=== PATIENT | male | born 1945 | race Caucasian/White ===

== ENCOUNTER 2017-09-07 14:10 | Emergency (ER) | payer MEDICARE, MEDICAID, SELFPAY | END 2017-09-07 17:21 | disposition home or self-care (01) | PROVIDERS: Emergency Provider Emergency Medicine; Visit Provider Emergency Medicine | DX: J44.9 Chronic obstructive pulmonary disease, unspecified (principal); E03.9 Hypothyroidism, unspecified | CPT/HCPCS: 85610; 85730; 99282 ==

== ENCOUNTER → 2017-11-26 14:12 | Outpatient (CLI) | payer MEDICARE, MEDICAID, SELFPAY ==
--- NOTE | 2017-11-26 14:27 | XR_ITS ---
XR ribs RT min 3V w CXR1V Ordering Physician: Wilder Argueta MD Patient Age: 72 years: Male HISTORY: ITS.REASON: RT RIB PAIN Pain at ribs since August. No trauma TECHNIQUE: Both oblique views right ribs along with AP ribs above and below diaphragm. COMPARISON :CT chest 2012. 2 view chest December 2016 and July 2016. FINDINGS Right ribs appear intact with no fracture evident no lesion evident. Left chest. The scarring at lingula again noted accounting for the slight opacity at the mid left chest. A small lymph node of the shadow seen towards right base where the views I between the oblique views and the other frontal view chest we see no additional suspicious nodules. IMPRESSION:. Right ribs are intact no acute fracture nor lesion. COPD Hyperexpansion mild chronic changes. . Long-standing Scarring at lingula left lung accounts for density here. No significant appearing new findings identified. No acute features
== END ==
PROVIDERS: PCP Family Medicine; Visit Provider Family Medicine
DX: R07.81 Pleurodynia (principal)
CPT/HCPCS: 71101

== ENCOUNTER → 2018-07-31 12:57 | Outpatient (CLI) | payer MEDICARE, MEDICAID, SELFPAY ==
[2018-07-31 13:20] LABS: Blood Urea Nitrogen 15 mg/dL (7-18); Creatinine,Serum 1.46 mg/dL (0.70-1.30); Estimated Glomerular Filt Rate 47 ml/min (>60); GFR (African American) 57 ML/MIN (>60)
--- NOTE | 2018-07-31 13:57 | CT_ITS ---
CT chest w con HISTORY: ITS.REASON: HYMOPTYSIS, COPD, FORMER SMOKER ORDERING PHYSICIAN: Wilder Argueta MD PATIENT AGE: 73 years COMPARISON: None TECHNIQUE: Axial images obtained following the administration of 75 mL of Isovue 370 . Sagittal, and coronal reformatted images are also generated and reviewed. All CT scans at the facility use one or more dose reduction, viz: automated exposure control, ma/kV adjustment per patient size (including targeted exams where dose is matched to indication, i.e. head), or iterative reconstruction technique. FINDINGS: No mediastinal or hilar mass or adenopathy. Normal heart size. No evidence of pericardial effusion. Hyperinflation with attenuation of the peripheral pulmonary vessels and scattered parenchymal opacities consistent with COPD with scattered pulmonary fibrotic changes. There is a small curvilinear opacity in the left upper lobe medially at 9 mm and may be due to an area of fibrosis or atelectasis. Image #28. Atelectatic or fibrotic changes are present in the lung bases and right middle lobe and lingula and has progressed since the previous exam. No lobar consolidation or collapse. 6 mm opacity is present in the superior segment of the right lower lobe not readily apparent previously. There is a 6 mm nodule in the left upper lobe which has developed in the interval but may contain a small focus of calcification centrally. Upper abdominal images show a small hiatal hernia. Spleen is slightly prominent at 13 x 7 cm previously 11 x 5 cm. There is a gallstone present in the fundus of the gallbladder No acute bony anomalies. IMPRESSION: 1. COPD with scattered fibrotic and/or atelectatic changes which have progressed since this exam. 2. Scattered parenchymal opacities as described above including a 6 mm nodule in the left upper lobe, 6 mm nodule in the superior segment of the right lower lobe, 9 mm opacity in the right upper lobe medially. Suggest 6 month follow-up to confirm short-term stability . 3. Mild splenomegaly 4. Cholelithiasis
== END ==
PROVIDERS: PCP Family Medicine; Visit Provider Family Medicine
DX: R04.2 Hemoptysis (principal); J44.9 Chronic obstructive pulmonary disease, unspecified; Z87.891 Personal history of nicotine dependence
CPT/HCPCS: 36415; 71260; 82565; 84520; Q9967

== ENCOUNTER → 2018-11-28 14:59 | Outpatient (CLI) | payer MEDICARE, MEDICAID, SELFPAY ==
--- NOTE | 2018-11-28 15:14 | XR_ITS ---
EXAM: XR cervical spine 5V HISTORY: ITS.REASON: NECK PAIN ORDERING PHYSICIAN: Wilder Argueta MD PATIENT AGE: 73 years COMPARISON: None FINDINGS: Multilevel degenerative disc disease is present at C4-C5, C5-C6, and C6-C7. There are prominent anterior bridging osteophytes consistent with DISH. Mild uncovertebral hypertrophy is noted with no significant foraminal narrowing. No fracture or dislocation. No lytic or blastic change. 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
== END ==
PROVIDERS: PCP Family Medicine; Visit Provider Family Medicine
DX: M54.2 Cervicalgia (principal)
CPT/HCPCS: 72050

== ENCOUNTER → 2019-01-27 08:04 | Outpatient (CLI) | payer MEDICARE, MEDICAID, SELFPAY ==
--- NOTE | 2019-01-27 08:07 | CT_ITS ---
CT chest wo con HISTORY: Follow-up pulmonary nodules ITS.REASON: PULMONARY NODULES ORDERING PHYSICIAN: Wilder Argueta MD PATIENT AGE: 73 years COMPARISON: 07/31/2018 Technique: Axial images obtained. Sagittal, and coronal reformatted images are also generated and reviewed. All CT scans at the facility use one or more dose reduction, viz: automated exposure control, ma/kV adjustment per patient size (including targeted exams where dose is matched to indication, i.e. head), or iterative reconstruction technique. FINDINGS: Scattered small nodes are present in the mediastinum. No mediastinal mass or enlarged mediastinal or hilar lymph nodes apparent. There are coronary artery calcifications. There is a small hiatal hernia. COPD with scattered areas of scarring and not appear significantly changed. Increased opacification present involving the right upper lobe posteriorly and may be due to pneumonia/inflammatory change parenchymal area of increased density is present in the right upper lobe medially at 12 mm not significant changed. Scattered fibrotic changes are present in the lung bases. There is a 6 mm nodular opacity in the right lower lobe along the major fissure superiorly not significantly changed. There are scattered parenchymal opacities in the left lower lobe measuring 7 x 5 mm. An 18 x 5 mm longitudinal nodular density present in the left lower lobe as well unchanged. 6 mm nodule left upper lobe with central calcification. There is an additional 4 mm nodule left upper lobe unchanged. A 4 mm nodule left upper lobe posteriorly unchanged. Chronic volume loss noted within the lingula not significant changed. No new nodules are identified. Upper abdominal images show cholelithiasis. There are degenerative changes within the spine IMPRESSION: 1. COPD with scattered bilateral nodular opacities and scattered areas of arthrosis/scarring. These appear stable compared to the previous study. There is chronic volume loss of the lingula. 2. Increased opacification is noted in the right upper lobe laterally which could be due to underlying infection/pneumonia with superimposed chronic changes
== END ==
PROVIDERS: PCP Family Medicine; Visit Provider Family Medicine
DX: R91.8 Other nonspecific abnormal finding of lung field (principal)
CPT/HCPCS: 71250

== ENCOUNTER 2019-04-15 15:00 | Outpatient (RCR) | payer MEDICARE, MEDICAID, SELFPAY ==
--- NOTE | 2019-02-28 14:44 | [facility].PTOPEV ---
PT Outpatient Evaluation Rehab PT Outpatient Evaluation Start: 02/28/19 14:08 Freq: Status: Active Protocol: Document 02/28/19 14:08 JERMAIN (Rec: 02/28/19 14:44 JERMIAN [id number]) Electronically Signed By Alexey Larson, PT 02/28/19 14:08 Outpatient Therapy Subjective History Subjective History Pt reports h/o chronic neck since injury/'strain' ~2 months ago. Pt reports reaching up to change a light bulb and felt a 'big strain in my neck'. Pt reports R>L sided pain, no radicular s/s, with point tenderness around C7 SP. Chief Complaint Pain,Spasms,Stiff Symptom Type Ache,Dull Symptoms Relieved By Rest/Positioning Symptoms Aggravated By Physical Activity,Twisting, Lifting Prior Functional Limitations Reaching,Lifting,Housework Current Functional Limitations Reaching,Lifting,Housework Symptom Description Constant but Variable Level of pain today (0-10) 1 Pain scale - at its best (0-10) 1 Pain scale - at its worst (0-10) 4 Cervical Eval Palpation Cervical Muscles R Cervical Paraspinal,L Cervical Paraspinal,R CT Junction,L CT Junction,R Upper Trapezius,L Upper Trapezius Cervical/Thoracic Palpation Findings Tenderness Posture Head/C-Spine Posture Sitting Position Neutral Position Head/C-Spine Posture Standing Position Neutral Position Flexibility Deficits Upper Trapezius Muscle Length (R) Moderate Tightness,(L) Moderate Tightness Scalene Group Muscle Length (R) Moderate Tightness,(L) Moderate Tightness Pectoralis Major Muscle Length (R) Moderate Tightness,(L) Moderate Tightness Pectoralis Minor Muscle Length (R) Moderate Tightness,(L) Moderate Tightness Passive Joint Mobility Cervical PIVM WNL: R OA L OA R AA L AA R C2/3 L C2/3 R C3/4 L C3/4 R C4/5 L C4/5 R C5/6 L C5/6 R C6/7 L C6/7 R C7/T1
== END 2019-04-15 15:05 | disposition home or self-care (01) ==
LOC: PT 15:00
PROVIDERS: Visit Provider Family Medicine
DX: M47.812 Spondylosis without myelopathy or radiculopathy, cervical region (principal)
CPT/HCPCS: 97010; 97014; 97035; 97110; 97140; 97163; G0283

== ENCOUNTER → 2019-06-21 10:22 | Outpatient (CLI) | payer MEDICARE, MEDICAID, SELFPAY ==
[2019-06-21 11:03] LABS: INR 5.08 (0.9-1.1); Prothrombin Time 48.9 seconds (9.4-11.8)
== END ==
PROVIDERS: Visit Provider Family Medicine
DX: Z51.81 Encounter for therapeutic drug level monitoring (principal); Z79.01 Long term (current) use of anticoagulants
CPT/HCPCS: 36415; 85610

== ENCOUNTER → 2019-07-01 15:29 | Outpatient (CLI) | payer MEDICARE, SELFPAY ==
[2019-07-01 18:27] LABS: Prostate Specific Ag Screen 0.6 ng/mL (0.0-4.0)
== END ==
PROVIDERS: Visit Provider Urology
DX: Z12.5 Encounter for screening for malignant neoplasm of prostate (principal)
CPT/HCPCS: 36415; G0103

== ENCOUNTER 2019-08-06 09:48 | Observation (INO) ==
[2019-08-06 10:30] LABS: Basophils % 0.3 % (0.1-2.0); Eosinophils # 0.3 K/mm3 (0.0-0.4); Hematocrit 40.2 % (42.0-52.0); Hemoglobin 13.3 g/dL (14.1-18.0); Lymphocytes # 1.2 K/mm3 (0.7-4.5); Lymphocytes % 9.6 % (10-50); Mean Corpuscular Volume 86.2 fl (80-94); Mean Platelet Volume 7.9 fl (7.4-10.4); Monocytes # 0.7 K/mm3 (0.1-1.0); Monocytes % 5.6 % (1.7-9.3); Neutrophils # 10.2 K/mm3 (1.8-7.8); Neutrophils % 82.4 % (37.0-80.0); Platelet Count 260 K/mm3 (142-424); Red Blood Count 4.66 M/mm3 (4.60-6.20); Red Cell Distribution Width 15.6 % (11.5-17.5); White Blood Count 12.4 K/mm3 (4.8-10.8)
[2019-08-06 10:40] LABS: INR 3.07 (0.9-1.1); Prothrombin Time 30.3 seconds (9.4-11.8)
[2019-08-06 10:43] LABS: Activated Partial Thrombo Time 45.5 seconds (23.6-34.0)
[2019-08-06 10:44] LABS: Albumin Level 3.1 gm/dL (3.4-5.0); Albumin/Globulin Ratio 0.8 (1.1-1.8); Anion Gap 10.9 mEq/L (5-15); Calcium 8.5 mg/dL (8.5-10.1); Globulin 4.1 gm/dl (1.3-3.2); Total Protein,Serum 7.2 gm/dL (6.4-8.2)
--- NOTE | 2019-08-06 10:49 | Emergency Department Note ---
ED Disposition Clinical Impression: Acute exacerbation of chronic obstructive airways disease Community acquired pneumonia Qualifiers: Laterality: left Lung location: upper lobe of lung Qualified Code(s): J18.9 - Pneumonia, unspecified organism Disposition: Admitted As Inpatient Condition on Discharge: Good Referrals: Wilder Argueta MD [Primary Care Provider] - - Critical Care Critical Care Time: No Attestation: On 08/06/19, the high probability of a clinically significant, sudden or life threatening deterioration of the following system(s) required my full and direct attention, intervention and personal management. The time I documented below is in addition to time spent performing reported procedures but includes the following listed in this critical care notation. Medical Decision Making - Medical Records Medical records reviewed: Yes: I reviewed the patient's medical records. - Adrian Inquiry Pt receiving controlled substance: No Vital Signs: 08/06/19 09:49 08/06/19 10:19 08/06/19 10:49 Temperature 98.1 F 98.2 F Temperature Source Oral Oral Pulse Rate 77 Pulse Rate [Right] 90 88 Respiratory Rate 18 15 Blood Pressure [Right Arm] 110/64 115/85 Blood Pressure Mean [Right Arm] 79 95 Blood Pressure Source [Right Arm] Automatic Cuff Blood Pressure Position [Right Arm] Sitting 02 Sat by Pulse Oximetry 95 98 Oxygen Delivery Method Room Air 08/06/19 12:30 Temperature 97.4 F L Temperature Source Oral Pulse Rate Pulse Rate [Right] 69 Respiratory Rate 18 Blood Pressure [Right Arm] 158/58 H Blood Pressure Mean [Right Arm] 91 Blood Pressure Source [Right Arm] Automatic Cuff Blood Pressure Position [Right Arm] Sitting 02 Sat by Pulse Oximetry 98 Oxygen Delivery Method Room Air - Lab Data Lab results reviewed: Yes: I reviewed the patient's lab results. Lab Results 08/06/19 10:15: WBC 12.4 H, RBC 4.66, Hgb 13.3 L, Hct 40.2 L, MCV 86.2, MCH 28.5, MCHC 33.0, RDW 15.6, Plt Count 260, MPV 7.9, Neut % (Auto) 82.4 H, Lymph % (Auto) 9.6 L, [place] % (Auto) 5.6, Eos % (Auto) 2.0, Baso % (Auto) 0.3, Neut # (Auto) 10.2 H, Lymph # (Auto) 1.2, [place] # (Auto) 0.7, Eos # (Auto) 0.3, Baso # (Auto) 0.0 08/06/19 10:15: Sodium 137, Potassium 3.9, Chloride 103, Carbon Dioxide 27, Anion Gap 10.9, BUN 16, Creatinine 1.38 H, Estimated Creat Clear 51, Estimated GFR 50 L, Est GFR ( Amer) 61, Glucose 115 H, Calcium 8.5, Total Bilirubin 1.0, AST 20, ALT 10 L, Alkaline Phosphatase 108, Total Protein 7.2, Albumin 3.1 L, Globulin 4.1 H, Albumin/Globulin Ratio 0.8 L 08/06/19 10:15: Lactate 2.0 08/06/19 10:15: PT 30.3 H, INR 3.07 H, APTT 45.5 H 08/06/19 10:15: Troponin I < 0.02 Result diagrams: 08/06/19 10:15 08/06/19 10:15 Orders (Tests/Meds): ED MEDICATIONS Generic Name Dose Route Start Last Admin Trade Name Freq PRN Reason Stop Dose Admin Levofloxacin/Dextrose 750 mg in 150 mls @ 100 mls/hr 08/06/19 13:30 Levofloxacin 750mg/150ml Premix IV 08/20/19 13:29 Q24H TANA Cefepime HCl 2 gm/ Sodium 100 mls @ 200 mls/hr 08/06/19 21:00 Chloride IV 08/20/19 20:59 Q8H TANA Sodium Chloride 3 ml 08/06/19 10:03 Sodium Chloride 3% 15ml Neb 09/05/19 10:02 ONCE PRN INDUCE SPUTUM COLLECTION Discontinued Medications Generic Name Dose Route Start Last Admin Trade Name Freq PRN Reason Stop Dose Admin Albuterol/Ipratropium 3 ml 08/06/19 10:02 08/06/19 10:10 Duoneb 3ml Neb 08/06/19 10:03 3 ml ONCE ONE Administration Ceftriaxone Sodium 1 gm/ 50 mls @ 100 mls/hr 08/06/19 12:30 08/06/19 12:29 Sodium Chloride IV 08/20/19 12:29 100 mls/hr Q24H TANA Administration Protocol Methylprednisolone Sodium Succinate 125 mg 08/06/19 10:02 08/06/19 10:17 Solu-Medrol 125mg/2ml Vial IV 08/06/19 10:03 125 mg ONCE ONE Administration ORDERS Category Date Time Status Troponin I Q3H Lab 08/06/19 14:00 Ordered Troponin I Q3H Lab 08/06/19 17:00 Ordered Blood Culture Stat Micro 08/06/19 10:15 Received Sputum Culture & Gram Stain Stat Micro 08/06/19 10:03 Ordered - Radiology Data #1 Image(s): Chest Image Reviewed: Yes I reviewed the patient's radiology image Preliminary Findings: Abnormal (see report ) - Physician Consults Physician Consulted: rayna Reason -: Admission Resp/SOB HPI - General Chief Complaint: Shortness of Breath/Dyspnea Stated Complaint: SOA Time Seen by Provider: 08/06/19 10:49 Mode of Arrival: Ambulatory Limitations: No Limitations Description of Symptoms (Recalled from ER Triage Doc. by RN): Patient complains of SOA since right before bedtime last night. - History of Present Illness pt with progressive sob with prod cough - pt with recent ed visit and has abn ct and cxr and on abx - pt has pending appt with pulmonary meds Complaint: shortness of breath, cough Onset (ago): hour(s) Context: recent illness Severity: moderate Known history of: COPD, recurrent pneumonia Associated symptoms: denies other symptoms - Related Data Home oxygen amount: none Home Medications Medication Instructions Recorded Confirmed Bisoprolol Fumarate [Bisoprolol 5 mg PO DAILY 04/16/19 08/06/19 5mg Tablet] Gemfibrozil 600 mg PO DAILY 04/16/19 08/06/19 Levothyroxine Sodium 88 mcg PO DAILY 04/16/19 08/06/19 [Levothyroxine 88mcg (0.088mg) Tab] Warfarin Sodium [Coumadin 5mg 5 mg PO DAILY 04/16/19 08/06/19 tablet] Simvastatin 20 mg PO DAILY 05/27/19 08/06/19 Diltiazem 240mg 24Hr ER Cap 1 % PO DAILY 07/20/19 08/06/19 Roflumilast [Daliresp] 1 tab PO DAILY 07/20/19 08/06/19 levoFLOXacin [Levaquin 500mg 500 mg PO DAILY 08/06/19 08/06/19 tab] Allergies Allergy/AdvReac Type Severity Reaction Status Date / Time No Known Allergies Allergy Verified 07/01/19 16:14 [facility] History - Hepatitis A Screen Drug use history?: No High risk sexual behaviors?: No History of sexually transmitted infection?: No Currently employed?: No Childcare worker?: No Do you have indoor plumbing?: Yes Do you have electricity?: Yes Attestation statement:: This patient has been screened for Hepatitis A risk factors. I have reviewed the patient's past medical history: Yes Other Surgeries: Yes: Colonoscopy - Social History Smoking Status: Never smoker Alcohol Intake: never Occupational Status: retired Housing: house Family Hx:: No significant family history ROS Obtained: Yes All systems reviewed & no additional complaints - Constitutional Constitutional: Denies fever(s) - Eyes Eyes: Denies change in vision - ENT Ears, Nose, Mouth, and Throat: Denies sore throat - Cardiovascular Cardiovascular: Denies chest pain, Reports dyspnea - Respiratory Respiratory: Yes as per HPI, Yes change in phlegm color, Yes cough, No coughing up blood - Gastrointestinal Gastrointestingal: Denies: abdominal pain - Genitourinary Male Genitourinary: Denies hematuria - Musculoskeletal Musculoskeletal: Denies joint pain - Integumentary/Breasts Skin/Breast: Denies rash - Neurologic Neurologic: Denies seizure-like activity Physical Exam - General General appearance: alert - Head Head exam: normocephalic - Eye Eye exam: Present: PERRL, EOMI - ENT ENT exam: Present: mucous membranes dry - Neck Neck exam: Present: trachea midline - Respiratory Respiratory exam: Present: other (dec bs bilat ). Absent: respiratory distress - Cardiovascular Cardiovascular exam: Present: regular rate, systolic murmur, +S4 - Abdominal Exam Abdominal exam: Present: soft - Extremities Exam Extremities exam: Absent: calf tenderness - Neurological Exam Neurological exam: Present: alert, oriented X3, CN II-XII intact - Psychiatric Psychiatric exam: Present: normal affect - Skin Skin exam: Absent: rash
--- NOTE | 2019-08-06 14:26 | Pharmacy Consult Notes ---
[facility] Pharmacy VTE Monitoring - Patient Demographics Admission date: 08/06/19 Report Date: 08/06/19 Time: 14:26 Allergies/Adverse Reactions: Patient Allergies No Known Allergies Allergy (Verified 07/01/19 16:14) Height: 1.91 m Weight: 74.588 kg Patient Problems: Current Active Problems Community acquired pneumonia (Acute) Acute exacerbation of chronic obstructive airways disease (Acute) - VTE Risk Labs: VTE Related Lab Results Hgb 13.3 g/dL (14.1-18.0) L 08/06/19 10:15 Hct 40.2 % (42.0-52.0) L 08/06/19 10:15 Plt Count 260 K/mm3 (142-424) 08/06/19 10:15 PT 30.3 seconds (9.4-11.8) H 08/06/19 10:15 INR 3.07 (0.9-1.1) H 08/06/19 10:15 APTT 45.5 seconds (23.6-34.0) H 08/06/19 10:15 BUN 16 mg/dL (7-18) 08/06/19 10:15 Creatinine 1.38 mg/dL (0.70-1.30) H 08/06/19 10:15 Estimated Creat Clear 51 mL/min (50-200) 08/06/19 10:15 - Prophylaxis VTE Prophylaxis Ordered?: Yes Types of VTE Prophylaxis: Pharmacological Pharmacologic Type: Warfarin (INR = 3.07)
--- NOTE | 2019-08-06 14:43 | History & Physical Report ---
*Admission Date: 08/06/19 *Chief complaint: Shortness of breath *History of present illness: 74-year-old male with COPD presented to the emergency department with complaint of less than 24 hours of fevers that occurred overnight and shortness of breath with cough that is productive of small amounts of brown sputum. Patient had been seen in the emergency department in early July (July 20) and x-ray showed pneumonia with CT scan performed the same day showing questionable infiltrate at the lingular infiltrate as well as some atelectasis versus an infiltrate at the left lower base. Patient has been referred to pulmonology for further bronchoscopy and review of his CT scan. He presented today with the previously mentioned complaints. Chest x-ray was interpreted as a new left lower lobe infiltrate. Patient's white blood cell count was mildly elevated. Decision was made to admit for observation and administration of broad-spectrum antibiotics. Patient has been admitted on Levaquin and cefepime to cover possible Pseudomonas as he recently finished a course of antibiotics for pneumonia in early July. While patient did admit to shortness of breath overnight he denies shortness of breath at the time of interview. [facility] History I have reviewed the patient's past medical history: Yes Medical History: Reports:: Atrial Fibrillation, Chronic Obstructive Pulmonary Disease (COPD) *Have you ever received a pneumonia vaccine?: No *Have you received a flu vaccine this season?: No Other Surgeries: Yes: Colonoscopy - *Social History Smoking Status: Never smoker Alcohol Intake: never *Occupational Status:: retired Housing: house *Travel in the last 8 weeks: None Family Hx:: No significant family history Review of Systems - Review of Systems Review of systems:: pertinent systems reviewed and negative unless documented below - *Neurologic Denies seizure-like activity Meds Home Medications Medication Instructions Recorded Confirmed Type Bisoprolol Fumarate [Bisoprolol 5 mg PO DAILY 04/16/19 08/06/19 History 5mg Tablet] Gemfibrozil 600 mg PO DAILY 04/16/19 08/06/19 History Levothyroxine Sodium 88 mcg PO DAILY 04/16/19 08/06/19 History [Levothyroxine 88mcg (0.088mg) Tab] Simvastatin 20 mg PO HS 05/27/19 08/06/19 History Roflumilast [Daliresp] 1 tab PO DAILY 07/20/19 08/06/19 History Albuterol Sulfate [Albuterol HFA 2 puffs IH Q4HP PRN 08/06/19 08/06/19 History Inhaler] Warfarin Sodium 6 mg PO DAILY 08/06/19 08/06/19 History diazePAM [diazePAM 5mg Tablet] 5 mg PO QIDP PRN 08/06/19 08/06/19 History dilTIAZem HCl [Diltiazem ER] 240 mg PO DAILY 08/06/19 08/06/19 History levoFLOXacin [Levaquin 500mg 500 mg PO DAILY 08/06/19 08/06/19 History tab] Allergies Allergy/AdvReac Type Severity Reaction Status Date / Time No Known Allergies Allergy Verified 07/01/19 16:14 Exam Vital signs and Labs for Last 24 Hours: Temp Pulse Resp BP Pulse Ox 97.9 F 72 18 125/60 100 08/06/19 14:17 08/06/19 14:17 08/06/19 14:17 08/06/19 14:17 08/06/19 14:17 Laboratory Results - last 24 hr 08/06/19 10:15: WBC 12.4 H, RBC 4.66, Hgb 13.3 L, Hct 40.2 L, MCV 86.2, MCH 28.5, MCHC 33.0, RDW 15.6, Plt Count 260, MPV 7.9, Neut % (Auto) 82.4 H, Lymph % (Auto) 9.6 L, [place] % (Auto) 5.6, Eos % (Auto) 2.0, Baso % (Auto) 0.3, Neut # (Auto) 10.2 H, Lymph # (Auto) 1.2, [place] # (Auto) 0.7, Eos # (Auto) 0.3, Baso # (Auto) 0.0 08/06/19 10:15: Sodium 137, Potassium 3.9, Chloride 103, Carbon Dioxide 27, Anion Gap 10.9, BUN 16, Creatinine 1.38 H, Estimated Creat Clear 51, Estimated GFR 50 L, Est GFR ( Amer) 61, Glucose 115 H, Calcium 8.5, Total Bilirubin 1.0, AST 20, ALT 10 L, Alkaline Phosphatase 108, Total Protein 7.2, Albumin 3.1 L, Globulin 4.1 H, Albumin/Globulin Ratio 0.8 L 08/06/19 10:15: Lactate 2.0 08/06/19 10:15: PT 30.3 H, INR 3.07 H, APTT 45.5 H 08/06/19 10:15: Troponin I < 0.02 08/06/19 13:52: Troponin I < 0.02 I & O for Last 24 hours: Intake & Output 08/04/19 08/05/19 08/06/19 08/07/19 11:59 11:59 11:59 11:59 Intake Total 200 / 200 Balance 200 / 200 Weight 170 lb 164 lb 7 oz - Constitutional no acute distress - *Routine HEENT Exam Head: Present: normocephalic Eye: Present: EOMI, PERRL ENT: Present: mucous membranes moist - *Routine Neck Exam Present: supple, full ROM, JVD - *Routine Respiratory Exam Present: rales - *Routine Cardiovascular Exam Present: RRR - *Routine Abdominal Exam Present: soft, normoactive bowel sounds - *Routine Extremities Exam Absent: edema Assessment and Plan (1) Community acquired pneumonia Current visit: Yes Status: Acute Qualifiers: Laterality: left Lung location: upper lobe of lung Qualified Code(s): J18.9 - Pneumonia, unspecified organism Category: Medical Code(s): J18.9 - Pneumonia, unspecified organism - Assessment and plan all Dx Assessment and Plan for all problems:: Patient is been admitted and placed on broad-spectrum antibiotic coverage. Patient does not meet criteria for severe sepsis. Fluids will be discontinued. INR is explainable by the fact that the patient takes Coumadin daily and is unrelated to his infection. Patient will be given steroids and antibiotics overnight. If there are no further issues patient will be discharged tomorrow. Repeat CBC has been ordered for the a.m.
--- NOTE | 2019-08-07 07:21 | Discharge Summary ---
General - General Admission date:: 08/06/19 Discharge date: 08/07/19 HPI HPI: 74-year-old male with COPD presented to the emergency department with complaint of less than 24 hours of fevers that occurred overnight and shortness of breath with cough that is productive of small amounts of brown sputum. Patient had been seen in the emergency department in early July (July 20) and x-ray showed pneumonia with CT scan performed the same day showing questionable infiltrate at the lingular infiltrate as well as some atelectasis versus an infiltrate at the left lower base. Patient has been referred to pulmonology for further bronchoscopy and review of his CT scan. He presented today with the previously mentioned complaints. Chest x-ray was interpreted as a new left lower lobe infiltrate. Patient's white blood cell count was mildly elevated. Decision was made to admit for observation and administration of broad-spectrum antibiotics. Patient has been admitted on Levaquin and cefepime to cover possible Pseudomonas as he recently finished a course of antibiotics for pneumonia in early July. While patient did admit to shortness of breath overnight he denies shortness of breath at the time of interview. Hospital Course Hospital Course: Patient was admitted and had no further subjective fevers. He had no further shortness of breath. His cough became productive of clear sputum as the observation admission progressed. He ambulated without difficulty. Patient uses incentive spirometer. The following morning on August 07 patient was continuing to do well. Lung exam revealed clear lung carrillo. Patient was discharged home. He will complete a course of antibiotics and follow-up in my office in 1 week. Objective Vital signs: Temp Pulse Resp BP Pulse Ox 97.9 F 67 18 129/59 L 96 08/07/19 04:00 08/07/19 05:49 08/07/19 04:00 08/07/19 04:00 08/07/19 05:49 no acute distress - *Routine Respiratory Exam Present: CTA bilaterally - *Routine Cardiovascular Exam Present: RRR, Normal S1, Normal S2 Results Labs on day of discharge: Labs from last 24 hours 08/06/19 08/06/19 08/06/19 14:54 13:52 10:15 WBC RBC Hgb Hct MCV MCH MCHC RDW Plt Count MPV Neut % (Auto) Lymph % (Auto) [place] % (Auto) Eos % (Auto) Baso % (Auto) Neut # (Auto) Lymph # (Auto) [place] # (Auto) Eos # (Auto) Baso # (Auto) PT INR APTT Sodium Potassium Chloride Carbon Dioxide Anion Gap BUN Creatinine Estimated Creat Clear Estimated GFR Est GFR ( Amer) Glucose Lactate Calcium Total Bilirubin AST ALT Alkaline Phosphatase Troponin I < 0.02 < 0.02 Total Protein Albumin Globulin Albumin/Globulin Ratio Influenza Type A Ag Negative Influenza Type B Ag Negative 08/06/19 08/06/19 08/06/19 10:15 10:15 10:15 WBC RBC Hgb Hct MCV MCH MCHC RDW Plt Count MPV Neut % (Auto) Lymph % (Auto) [place] % (Auto) Eos % (Auto) Baso % (Auto) Neut # (Auto) Lymph # (Auto) [place] # (Auto) Eos # (Auto) Baso # (Auto) PT 30.3 H INR 3.07 H APTT 45.5 H Sodium 137 Potassium 3.9 Chloride 103 Carbon Dioxide 27 Anion Gap 10.9 BUN 16 Creatinine 1.38 H Estimated Creat Clear 51 Estimated GFR 50 L Est GFR ( Amer) 61 Glucose 115 H Lactate 2.0 Calcium 8.5 Total Bilirubin 1.0 AST 20 ALT 10 L Alkaline Phosphatase 108 Troponin I Total Protein 7.2 Albumin 3.1 L Globulin 4.1 H Albumin/Globulin Ratio 0.8 L Influenza Type A Ag Influenza Type B Ag 08/06/19 10:15 WBC 12.4 H RBC 4.66 Hgb 13.3 L Hct 40.2 L MCV 86.2 MCH 28.5 MCHC 33.0 RDW 15.6 Plt Count 260 MPV 7.9 Neut % (Auto) 82.4 H Lymph % (Auto) 9.6 L [place] % (Auto) 5.6 Eos % (Auto) 2.0 Baso % (Auto) 0.3 Neut # (Auto) 10.2 H Lymph # (Auto) 1.2 [place] # (Auto) 0.7 Eos # (Auto) 0.3 Baso # (Auto) 0.0 PT INR APTT Sodium Potassium Chloride Carbon Dioxide Anion Gap BUN Creatinine Estimated Creat Clear Estimated GFR Est GFR ( Amer) Glucose Lactate Calcium Total Bilirubin AST ALT Alkaline Phosphatase Troponin I Total Protein Albumin Globulin Albumin/Globulin Ratio Influenza Type A Ag Influenza Type B Ag DS: Diagnosis - Discharge Diagnosis (1) Community acquired pneumonia Status: Acute Discharge Plan - Patient Discharge Instructions ACTIVITY: Continue current activity DIET: continue same diet - Follow up Plan Follow up with: Wilder Argueta MD [Primary Care Provider] - 1 week Disposition: Home, Self-[facility] Medications: Home Medications Medication Instructions Recorded Confirmed Type Bisoprolol Fumarate [Bisoprolol 5 mg PO DAILY 04/16/19 08/06/19 History 5mg Tablet] Levothyroxine Sodium 88 mcg PO DAILY 04/16/19 08/06/19 History [Levothyroxine 88mcg (0.088mg) Tab] Simvastatin 20 mg PO HS 05/27/19 08/06/19 History Roflumilast [Daliresp] 1 tab PO DAILY 07/20/19 08/06/19 History Albuterol Sulfate [Albuterol HFA 2 puffs IH Q4HP PRN 08/06/19 08/06/19 History Inhaler] Warfarin Sodium 6 mg PO DAILY 08/06/19 08/06/19 History diazePAM [diazePAM 5mg Tablet] 5 mg PO QIDP PRN 08/06/19 08/06/19 History dilTIAZem HCl [Diltiazem ER] 240 mg PO DAILY 08/06/19 08/06/19 History levoFLOXacin [Levaquin 500mg 500 mg PO DAILY 08/06/19 08/06/19 History tab] Doxycycline Hyclate [Doxycycline 100 mg PO BID #14 cap 08/07/19 Rx 100mg Capsule] Prescriptions/Medication Reconciliation: New Doxycycline Hyclate [Doxycycline 100mg Capsule] 100 mg PO BID #14 cap Continued Bisoprolol Fumarate [Bisoprolol 5mg Tablet] 5 mg PO DAILY levoFLOXacin [Levaquin 500mg tab] 500 mg PO DAILY dilTIAZem HCl [Diltiazem ER] 240 mg PO DAILY Warfarin Sodium 6 mg PO DAILY Levothyroxine Sodium [Levothyroxine 88mcg (0.088mg) Tab] 88 mcg PO DAILY Simvastatin 20 mg PO HS Roflumilast [Daliresp] 1 tab PO DAILY diazePAM [diazePAM 5mg Tablet] 5 mg PO QIDP PRN PRN Reason: Anxiety Albuterol Sulfate [Albuterol HFA Inhaler] 2 puffs IH Q4HP PRN PRN Reason: SHORTNESS OF BREATH/WHEEZING - Problem Reconciliation Problems Reviewed?: Yes
[2019-08-07 07:24] LABS: Basophils % 0.1 % (0.1-2.0); Eosinophils # 0.1 K/mm3 (0.0-0.4); Eosinophils % 0.7 % (0.1-12.0); Hemoglobin 13.3 g/dL (14.1-18.0); Lymphocytes # 0.5 K/mm3 (0.7-4.5); Lymphocytes % 5.6 % (10-50); Mean Corpuscular HGB Conc 30.9 g/dL (31.8-35.4); Mean Corpuscular Volume 88.3 fl (80-94); Monocytes # 0.2 K/mm3 (0.1-1.0); Monocytes % 2.2 % (1.7-9.3); Neutrophils # 7.7 K/mm3 (1.8-7.8); Neutrophils % 91.3 % (37.0-80.0); Platelet Count 249 K/mm3 (142-424); Red Blood Count 4.87 M/mm3 (4.60-6.20); Red Cell Distribution Width 15.7 % (11.5-17.5); White Blood Count 8.4 K/mm3 (4.8-10.8)
[2019-08-07 07:42] LABS: INR 3.34 (0.9-1.1); Prothrombin Time 32.8 seconds (9.4-11.8)
[2019-08-07 07:44] LABS: Anion Gap 12.7 mEq/L (5-15); Calcium 9.3 mg/dL (8.5-10.1)
[2019-08-07 11:23] LABS: Lymphocytes % 7 % (10-50); Monocytes % 4 % (2-9); Neutrophils % 89 % (42-76); Total Cells Counted 100
[2019-08-07 11:24] LABS: RBC Morphology Normal
== END 2019-08-07 09:24 | disposition home or self-care (01) ==
LOC: ER 09:48 → 2ND 13:22 → INTOOBSV 13:32 → 2ND 13:33
PROVIDERS: ADMIT Family Medicine; ATTEND Family Medicine
CPT/HCPCS: 36415; 71020; 71046; 80048; 80053; 83605; 84484; 85007; 85025; 85610; 85730; 87040; 87275; 87276; 94640; 94761; 96365; 96367; 96375; 99284; G0378; J1956

== ENCOUNTER → 2019-09-23 13:37 | Outpatient (CLI) | payer MEDICARE, OTHER, SELFPAY ==
--- NOTE | 2019-09-23 13:42 | XR_ITS ---
PROCEDURE: XR CHEST 2V CLINICAL HISTORY: RT SIDE CHEST PAIN, RLL PNEUMONIA Hemoptysis, right lower lobe pneumonia, right-sided chest pain COMPARISON: [id number] XR ribs RT min 3V w CXR1V from 11/26/2017 XR CHEST 2V from 07/20/2019 CT CHEST W CON from 07/20/2019 XR CHEST 2V from 08/06/2019 FINDINGS: COPD. Normal heart size. Consolidation is present in the left lower lobe consistent with pneumonia which is worse from 08/06/2019. Patchy infiltrate is also present within the right middle lobe which has developed since the previous exam. Chronic changes left lung base. Degenerative change thoracic spine IMPRESSION: 1. Worsening consolidation within the lingula with developing pneumonia in the right midlung 2. COPD Dictated by: Ilan De La Garza MD 09/23/2019 14:04 Electronically signed by Ilan De La Garza MD in [place] 09/23/2019 14:04
== END ==
PROVIDERS: PCP Nurse Practitioner Family; Visit Provider Nurse Practitioner Family
DX: R07.9 Chest pain, unspecified (principal); J18.9 Pneumonia, unspecified organism
CPT/HCPCS: 71046

== ENCOUNTER → 2019-10-24 14:28 | Outpatient (CLI) | payer MEDICARE, OTHER, SELFPAY ==
--- NOTE | 2019-10-24 14:37 | XR_ITS ---
PROCEDURE: XR CHEST 2V CLINICAL HISTORY: COUGH Cough and congestion COMPARISON: CT CHEST W CON from 07/20/2019 XR CHEST 2V from 07/20/2019 XR CHEST 2V from 08/06/2019 XR CHEST 2V from 09/23/2019 FINDINGS: The cardiomediastinal silhouette and pulmonary vascularity are within normal limits. COPD with scattered areas of scarring. There is consolidation in the left lower lobe at the CP angle consistent with pneumonia not significantly changed. Consolidation/volume loss in the lingula once again noted and appears slightly improved at least on the lateral view. The pneumonia in the right mid lower lung zone is once again noted and also appears slightly improved. No acute bony abnormalities. IMPRESSION: 1. COPD with bilateral pneumonia slightly improved in the right mid lower lung zone and lingula but unchanged in the left lung base. Dictated by: Ilan De La Garza MD 10/24/2019 14:52 Electronically signed by Ilan De La Garza MD in [facility] 10/24/2019 14:52
== END ==
PROVIDERS: PCP Family Medicine; Visit Provider Family Medicine
DX: R05 Cough (principal)
CPT/HCPCS: 71046

== ENCOUNTER → 2019-10-30 15:32 | Outpatient (CLI) | payer MEDICARE, OTHER, SELFPAY ==
--- NOTE | 2019-10-30 15:45 | CT_ITS ---
PROCEDURE: CT CHEST WO CON CLINICAL INDICATION: wt loss, hemoptyysis Weight loss, hemoptysis, pneumonia COMPARISON: CHESTW CT chest w con from 07/31/2018 CT CHEST W CON from 07/20/2019 TECHNIQUE: Axial images obtained with sagittal and coronal reformats. All CT scans at the facility use one or more dose reduction, viz: automated exposure control, ma/kV adjustment per patient size (including targeted exams where dose is matched to indication, i.e. head), or iterative reconstruction technique. FINDINGS: No mediastinal or hilar mass. Coronary artery calcifications are present. There are few small mediastinal lymph nodes. COPD changes noted with scattered areas of fibrotic changes. There are scattered irregular parenchymal opacities once again noted. There is 11 mm parenchymal opacity right upper lobe medially not significantly changed from the most recent exam but slightly more prominent compared to 07/31/2018. There is patchy infiltrate in the right upper lobe posteriorly not significantly changed. There is consolidation with volume loss of the lateral segment of the right middle lobe which is developed since the previous exam. A new small nodular opacity is present in the right lower lobe posteriorly and medially at 7 mm series 3, image 62. There is some patchy infiltrate in the right lower lobe posteriorly. Stable nodular opacity is present in the superior segment of the right lower lobe at 6 mm. Stable left upper lobe nodule at 4 mm series 3, image 44. Consolidation is once again noted within the lingula but has shown some improvement. New area of consolidation is present in the left lower lobe laterally and posteriorly consistent with pneumonia. Upper abdominal images show cholelithiasis. No acute bony anomalies IMPRESSION: 1. COPD with fibrotic changes with scattered pulmonary parenchymal opacities most of which are stable. One new nodular opacity is present in the right lower lobe medially. While these may represent areas of scarring, 1 cannot exclude the possibility of pulmonary nodule/metastatic foci. 2. Consolidation in the right middle lobe laterally and left lower lobe has developed since the previous exam with some improvement in the consolidation within the lingula. Bronchiolitis obliterans with organizing pneumonia is a consideration. Dictated by: Ilan De La Garza MD 11/02/2019 07:52 Electronically signed by Ilan De La Garza MD in [place] 11/02/2019 07:52
[2019-10-30 17:10] LABS: Basophils # 0.1 K/mm3 (0-0.2); Eosinophils # 0.1 K/mm3 (0.0-0.4); Eosinophils % 1.5 % (0.1-12.0); Hematocrit 38.4 % (42.0-52.0); Hemoglobin 12.2 g/dL (14.1-18.0); Lymphocytes # 1.1 K/mm3 (0.7-4.5); Lymphocytes % 20.4 % (10-50); Mean Corpuscular HGB Conc 31.8 g/dL (31.8-35.4); Mean Corpuscular Hemoglobin 27.3 pg (27.0-31.2); Mean Corpuscular Volume 85.7 fl (80-94); Mean Platelet Volume 7.8 fl (7.4-10.4); Monocytes # 0.3 K/mm3 (0.1-1.0); Monocytes % 4.9 % (1.7-9.3); Neutrophils # 3.9 K/mm3 (1.8-7.8); Neutrophils % 72.2 % (37.0-80.0); Platelet Count 233 K/mm3 (142-424); Red Blood Count 4.48 M/mm3 (4.60-6.20); Red Cell Distribution Width 15.3 % (11.5-17.5); White Blood Count 5.3 K/mm3 (4.8-10.8)
[2019-10-30 20:20] LABS: Alanine Aminotransferase 15 U/L (21-72); Albumin Level 3.5 g/dL (3.4-5.0); Albumin/Globulin Ratio 0.9 (1.1-1.8); Alkaline Phosphatase 175 U/L (46-116); Aspartate Amino Transferase 21 U/L (15-37); Bilirubin,Total 0.3 mg/dL (0.2-1.0); Blood Urea Nitrogen 17 mg/dL (7-18); Calcium 8.8 mg/dL (8.5-10.1); Carbon Dioxide 27 mmol/L (21.0-32.0); Chloride 106 mmol/L (98-107); Creatinine,Serum 1.21 mg/dL (0.70-1.30); Estimated Glomerular Filt Rate 59 ml/min (>60); GFR (African American) 71 ML/MIN (>60); Globulin 3.7 gm/dl (1.3-3.2); Glucose 99 mg/dL (74-106); Sodium 145 mmol/L (137-145); Total Protein,Serum 7.2 g/dL (6.4-8.2)
== END ==
PROVIDERS: PCP Family Medicine; Visit Provider Otolaryngology
DX: R04.2 Hemoptysis (principal); R63.4 Abnormal weight loss
CPT/HCPCS: 36415; 71250; 80053; 85025

== ENCOUNTER 2020-03-18 21:23 | Emergency (ER) | payer MEDICARE, OTHER, SELFPAY ==
[2020-03-18 21:37] VITALS: BP 124/84; PULSE 108; RESP 22; TEMP 36.6; O2SAT 94; BMI 23.2
--- NOTE | 2020-03-18 21:37 | ECG_ITS ---
APPROVED REPORT Exam: Resting ECG HR:101 bpm ECG Measurements Heart Rate 101 AXES SC 190 P 61 QRSd 102 QRS 14 QT 356 T 75 QTc 461 <Conclusion> Sinus tachycardia Incomplete right bundle branch block Possible Inferior infarct, age undetermined Abnormal ECG Electronically signed by : Wilder Pantoja, 03/22/2020 17:14:56
--- NOTE | 2020-03-18 21:45 | XR_ITS ---
PROCEDURE: XR CHEST 2V CLINICAL HISTORY: sob Chest pain and shortness of breath COMPARISON: XR CHEST 2V from 08/06/2019 XR CHEST 2V from 09/23/2019 XR CHEST 2V from 10/24/2019 CT CHEST WO CON from 10/30/2019 FINDINGS: The cardiomediastinal silhouette and pulmonary vascularity are within normal limits. COPD. There is consolidation involving the lingula consistent with pneumonia with underlying chronic changes. Atelectasis and/or infiltrate also noted in the right middle lobe region. No obvious effusion No acute bony abnormalities. IMPRESSION: Pneumonia of the lingula with chronic changes with atelectasis or infiltrate of the lingula Dictated by: Ilan De La Garza MD 03/19/2020 06:24 Electronically signed by Ilan eD La Garza MD in [place] 03/19/2020 06:24
[2020-03-18 22:00] VITALS: BP 124/66; PULSE 92; RESP 16; O2SAT 95
[2020-03-18 22:02] LABS: Basophils # 0.1 K/mm3 (0-0.2); Basophils % 0.4 % (0.1-2.0); Eosinophils # 0.1 K/mm3 (0.0-0.4); Eosinophils % 1.1 % (0.1-12.0); Hematocrit 38.5 % (42.0-52.0); Hemoglobin 13.2 g/dL (14.1-18.0); Lymphocytes # 1.6 K/mm3 (0.7-4.5); Lymphocytes % 12.9 % (10-50); Mean Corpuscular HGB Conc 34.3 g/dL (31.8-35.4); Mean Corpuscular Hemoglobin 31.6 pg (27.0-31.2); Mean Corpuscular Volume 92.2 fl (80-94); Mean Platelet Volume 7.4 fl (7.4-10.4); Monocytes # 0.5 K/mm3 (0.1-1.0); Monocytes % 3.6 % (1.7-9.3); Neutrophils # 10.3 K/mm3 (1.8-7.8); Platelet Count 307 K/mm3 (142-424); Red Blood Count 4.17 M/mm3 (4.60-6.20); Red Cell Distribution Width 14.3 % (11.5-17.5); White Blood Count 12.6 K/mm3 (4.8-10.8)
[2020-03-18 22:19] LABS: Chloride 107 mmol/L (98-107); Potassium 3.6 mmoL/L (3.5-5.1); Sodium 139 mmol/L (136-145)
[2020-03-18 22:22] LABS: Alanine Aminotransferase 15 U/L (12-78); Albumin Level 4.2 g/dl (3.5-5.0); Alkaline Phosphatase 72 U/L (38-126); Anion Gap 14.6 mEq/L (5-15); Aspartate Amino Transferase 21 U/L (17-59); Bilirubin,Total 0.9 mg/dl (0.2-1.3); Blood Urea Nitrogen 22 mg/dl (9-20); Carbon Dioxide 21 mmol/L (22.0-30.0); Creatinine Clearance Estimated 52 mL/min (50-200); Estimated Glomerular Filt Rate 46 ml/min (>60); GFR (African American) 55 ML/MIN (>60); Globulin 4.2 g/dL (1.3-3.2); Total Protein,Serum 8.4 g/dl (6.3-8.2)
[2020-03-18 22:23] LABS: Glucose 107 mg/dl (74-100)
--- NOTE | 2020-03-18 22:29 | HMH.EDSOB ---
ED Disposition Clinical Impression: Severe sepsis with acute organ dysfunction, COVID-19 virus IgG antibody detected, Prolonged pt (prothrombin time), Renal insufficiency Community acquired pneumonia Qualifiers: Laterality: left Lung location: lower lobe of lung Qualified Code(s): J18.9 - Pneumonia, unspecified organism Disposition: Home, Self-Care Condition on Discharge: Good Instructions: DI for Shortness of Breath Additional Instructions: hold coumadin follow up and use meds as directed and call dr way for follow up Referrals: Wilder Way MD [Primary Care Provider] - - Critical Care Critical Care Time: No Attestation: On 03/18/20, the high probability of a clinically significant, sudden or life threatening deterioration of the following system(s) required my full and direct attention, intervention and personal management. The time I documented below is in addition to time spent performing reported procedures but includes the following listed in this critical care notation. Medical Decision Making - Medical Records Medical records reviewed: Yes: I reviewed the patient's medical records. - Adrian Inquiry Pt receiving controlled substance: No Vital Signs: 03/18/20 21:37 03/18/20 22:00 03/18/20 22:30 Temperature 97.9 F Temperature Source Oral Pulse Rate [Right Brachial] 108 H 92 H 90 Respiratory Rate 22 16 16 Blood Pressure [Right Arm] 124/84 124/66 128/72 Blood Pressure Mean [Right Arm] 97 85 90 Blood Pressure Source [Right Arm] Automatic Cuff Automatic Cuff Automatic Cuff Blood Pressure Position [Right Arm] Sitting Supine Supine 02 Sat by Pulse Oximetry 94 L 95 95 Oxygen Delivery Method Room Air Room Air Room Air Oxygen Flow Rate (LPM) 03/18/20 23:51 Temperature Temperature Source Pulse Rate [Right Brachial] 88 Respiratory Rate Blood Pressure [Right Arm] 118/58 L Blood Pressure Mean [Right Arm] 78 Blood Pressure Source [Right Arm] Automatic Cuff Blood Pressure Position [Right Arm] Sitting 02 Sat by Pulse Oximetry 94 L Oxygen Delivery Method Nasal Cannula Oxygen Flow Rate (LPM) 2 - Lab Data Lab results reviewed: Yes: I reviewed the patient's lab results. Lab Results 03/18/20 21:40: WBC 12.6 H, RBC 4.17 L, Hgb 13.2 L, Hct 38.5 L, MCV 92.2, MCH 31.6 H, MCHC 34.3, RDW 14.3, Plt Count 307, MPV 7.4, Neut % (Auto) 82.0 H, Lymph % (Auto) 12.9, [place]irt % (Auto) 3.6, Eos % (Auto) 1.1, Baso % (Auto) 0.4, Neut # (Auto) 10.3 H, Lymph # (Auto) 1.6, Wirt # (Auto) 0.5, Eos # (Auto) 0.1, Baso # (Auto) 0.1 03/18/20 21:40: Sodium 139, Potassium 3.6, Chloride 107, Carbon Dioxide 21 L, Anion Gap 14.6, BUN 22 H, Creatinine 1.50 H, Estimated Creat Clear 52, Estimated GFR 46 L, Est GFR ( Amer) 55 L, Glucose 107 H, Calcium 10.0, Total Bilirubin 0.9, AST 21, ALT 15, Alkaline Phosphatase 72, Troponin I < 0.01, Total Protein 8.4 H, Albumin 4.2, Globulin 4.2 H, Albumin/Globulin Ratio 1.0 L 03/18/20 21:40: Lactate 2.9 H 03/18/20 21:40: SARS-CoV-2 IgG Ab (Rapid) Positive A, SARS-CoV-2 IgM Ab (Rapid) Negative 03/18/20 21:40: NT-Pro-B Natriuret Pep 653 H 03/18/20 21:40: PT 42.2 H, INR 4.53 H 03/18/20 23:05: Urine Color Yellow, Urine Appearance Clear, Urine pH 6.0, Ur Specific [place] 1.025, Urine Protein Negative, Urine Glucose (UA) Negative, Urine Ketones Negative, Urine Blood Negative, Urine Nitrate Negative, Urine Bilirubin Negative, Urine Urobilinogen 1.0, Ur Leukocyte Esterase Negative, Urine WBC Occasional, Ur Squamous Epith Cells Occasional, Urine Bacteria Trace Result diagrams: 03/18/20 21:40 03/18/20 21:40 Orders (Tests/Meds): ED MEDICATIONS Generic Name Dose Route Start Last Admin Trade Name Freq PRN Reason Stop Dose Admin Ertapenem 1 gm/ Sodium 50 mls @ 100 mls/hr 03/18/20 22:45 03/18/20 22:40 Chloride IV 04/01/20 22:44 100 mls/hr Q24H TANA Administration Protocol ORDERS Category Date Time Status XR chest 2V Stat Exams 03/18/20 21:45 Taken SARS-CoV-2, JULITA Stat Lab
[2020-03-18 22:30] VITALS: BP 128/72; PULSE 90; RESP 16; O2SAT 95
--- NOTE | 2020-03-18 22:31 | PC.NURSE ---
ON PHONE WITH DR ARMANDO
[2020-03-18 22:37] LABS: NT Pro Brain Natriuretic Pep. 653 pg/mL (0-125)
[2020-03-18 22:39] LABS: Lactic Acid 2.9 mmol/L (0.7-2.1); Troponin I < 0.01 ng/ml (0.00-0.034)
[2020-03-18 23:07] LABS: Coronavirus 19 IgG Antibody Positive (Negative); Coronavirus 19 IgM Antibody Negative (Negative)
--- NOTE | 2020-03-18 23:07 | PC.NURSE ---
RECEIVED IGG/IGM LAB RESULTS FROM [facility] IN LAB. NOTIFIED
[2020-03-18 23:09] LABS: Microscopic, Urine URINE MICROSCOPIC (MICROSCOPIC)
[2020-03-18 23:14] LABS: Appearance,Urine CLEAR (Clear); Bilirubin,Urine Negative (Negative); Blood, Urine Negative (Negative); Color,Urine YELLOW (Yellow); Glucose,Urine (UA) Negative (Negative); Ketones,Urine Negative (Negative); Leukocyte Esterase,Urine Negative (Negative); Nitrate,Urine Negative (Negative); Protein,Urine Negative (Negative); Specific Gravity, Urine 1.025 (1.005-1.030)
[2020-03-18 23:17] LABS: INR 4.53 (0.9-1.1); Prothrombin Time 42.2 seconds (9.4-11.8)
[2020-03-18 23:27] LABS: Bacteria,Urine Trace /lpf; Squamous Epithelial Cell,Urine Occasional #/hpf (0-5); WBC,Urine Occasional #/hpf (0-3)
[2020-03-18 23:51] VITALS: BP 118/58; PULSE 88; O2SAT 94
[2020-03-19 01:25] VITALS: BP 133/72; PULSE 84; RESP 16; TEMP 36.6; O2SAT 96
--- NOTE | 2020-03-19 01:25 | PC.NURSE ---
Patient has been discharged at this time. Patient reports he cannot drive in the dark and he has no one he can call at this time of the night to come pick him up. Fili Lott called two contact we has listed in the computer and they both expressed that they lived out of [facility] and could not give him a ride.
[2020-03-19 01:56] LABS: Reflex Lactic Add Lactic Reflex
--- NOTE | 2020-03-19 03:11 | PC.NURSE ---
Patient expressed that he did not want to wait in his room any longer, that he wanted to wait in the lobby at this time.
[2020-03-20 13:48] LABS: Covid-19 Nasal PCR Sendout Lex Not Detected
== END 2020-03-19 03:13 | disposition home or self-care (01) ==
PROVIDERS: Emergency Provider Emergency Medicine; PCP Family Medicine
DX: J18.9 Pneumonia, unspecified organism (principal); A41.9 Sepsis, unspecified organism; I48.20 Chronic atrial fibrillation, unspecified; J44.1 Chronic obstructive pulmonary disease with (acute) exacerbation; R79.1 Abnormal coagulation profile; Z01.84 Encounter for antibody response examination; N28.9 Disorder of kidney and ureter, unspecified
CPT/HCPCS: 71046; 80053; 81001; 83605; 83880; 84484; 85025; 85610; 86328; 87040; 93005; 96374; 96375; 99284; J1335; U0004

== ENCOUNTER → 2021-01-14 12:50 | Outpatient (CLI) | payer MEDICARE, OTHER, SELFPAY ==
[2021-01-14 13:26] LABS: INR 2.21 (0.9-1.1); Prothrombin Time 24.6 seconds (10.1-12.5)
== END ==
PROVIDERS: Visit Provider Family Medicine
DX: Z51.81 Encounter for therapeutic drug level monitoring (principal); Z79.01 Long term (current) use of anticoagulants
CPT/HCPCS: 36415; 85610

== ENCOUNTER → 2021-02-16 13:00 | Outpatient (CLI) | payer MEDICARE, OTHER, SELFPAY ==
[2021-02-16 13:37] LABS: Basophils % 0.5 % (0.1-2.0); Eosinophils # 0.1 K/mm3 (0.0-0.4); Eosinophils % 1.3 % (0.1-12.0); Hematocrit 37.5 % (42.0-52.0); Hemoglobin 12.5 g/dL (14.1-18.0); Lymphocytes # 1.5 K/mm3 (0.7-4.5); Lymphocytes % 23.4 % (10-50); Mean Corpuscular HGB Conc 33.4 g/dL (31.8-35.4); Mean Corpuscular Hemoglobin 27.8 pg (27.0-31.2); Mean Corpuscular Volume 83.4 fl (80-94); Mean Platelet Volume 7.5 fl (7.4-10.4); Monocytes # 0.5 K/mm3 (0.1-1.0); Monocytes % 6.9 % (1.7-9.3); Neutrophils # 4.4 K/mm3 (1.8-7.8); Neutrophils % 67.8 % (37.0-80.0); Platelet Count 323 K/mm3 (142-424); Red Blood Count 4.49 M/mm3 (4.60-6.20); Red Cell Distribution Width 15.5 % (11.5-17.5); White Blood Count 6.5 K/mm3 (4.8-10.8)
[2021-02-16 14:20] LABS: Alanine Aminotransferase 14 U/L (12-78); Albumin Level 3.7 g/dl (3.5-5.0); Albumin/Globulin Ratio 1.1 (1.1-1.8); Alkaline Phosphatase 129 U/L (38-126); Anion Gap 13.5 mEq/L (5-15); Aspartate Amino Transferase 27 U/L (17-59); Bilirubin,Total 0.8 mg/dl (0.2-1.3); Blood Urea Nitrogen 6 mg/dl (9-20); Carbon Dioxide 24 mmol/L (22.0-30.0); Chloride 103 mmol/L (98-107); Chol/HDL Ratio 5.2 (1-3.5); Cholesterol 181 mg/dl (140-200); Estimated Glomerular Filt Rate 59 ml/min (>60); GFR (African American) 71 ML/MIN (>60); Globulin 3.4 g/dL (1.3-3.2); Glucose 97 mg/dl (74-100); HDL Cholesterol 35 mg/dl (40-60); Potassium 3.5 mmoL/L (3.5-5.1); Sodium 137 mmol/L (136-145); Total Protein,Serum 7.1 g/dl (6.3-8.2); Triglycerides 187 mg/dl (30-150); VLDL Cholesterol 37 mg/dL (0-40)
[2021-02-16 14:31] LABS: Direct LDL Cholesterol 87.64 mg/dL (100-129)
[2021-02-16 14:34] LABS: 25-OH Vitamin D, Total 43.2 ng/mL (30-100)
[2021-02-16 14:35] LABS: T4 (Thyroxine) 12.4 ug/dl (5.53-11.0)
[2021-02-16 14:36] LABS: Free Thyroxine Index 8.1 ug/dL (5.93-13.13); Triiodothryronine (T3) Uptake > 65 % (23.5-40.5)
[2021-02-16 14:49] LABS: Thyroid Stimulating Hormone 4.48 uIU/mL (0.465-4.68)
[2021-02-16 15:09] LABS: Vitamin B12 516 pg/mL (239-931)
== END ==
PROVIDERS: Visit Provider Internal Medicine Adolescent Medicine
DX: R13.10 Dysphagia, unspecified (principal); E78.5 Hyperlipidemia, unspecified; E03.9 Hypothyroidism, unspecified; Z86.718 Personal history of other venous thrombosis and embolism
CPT/HCPCS: 36415; 80053; 80061; 82306; 82607; 84436; 84443; 84479; 85025; 85610

== ENCOUNTER 2021-02-20 12:59 | Emergency (ER) | payer MEDICARE, OTHER, SELFPAY ==
[2021-02-20 13:09] VITALS: BP 116/66; PULSE 111; RESP 16; TEMP 36.4; O2SAT 99; BMI 21.6
--- NOTE | 2021-02-20 13:32 | HMH.EDUTC ---
[facility] Disposition Clinical Impression: Urinary frequency UTI (urinary tract infection) Qualifiers: Urinary tract infection type: site unspecified Hematuria presence: with hematuria Qualified Code(s): N39.0 - Urinary tract infection, site not specified Disposition: Home, Self-Care Condition on Discharge: Good Instructions: Urinary Tract Infection, Urine Culture Additional Instructions: Drink plenty of fluids. Take tylenol or ibuprofen for pain or fever. Take the medications as directed. Follow up with your regular doctor. Make plans to follow up with your primary care doctor in several days for a recheck, even if he is feeling better. Also, he will need a recheck of his urine to make sure the infection is gone in 10 days or so. Watch him closely. Bring him back quickly and go through the ER if he starts to feel worse, run a fever or has any other worsening symptoms. GO TO THE ER FOR ANY WORSENING SYMPTOMS Prescriptions: Sulfamethoxazole/Trimethoprim [Bactrim DS tablet] 1 each PO BID #28 tab Transmission Status: Received by [id number] Referrals: Wilder Pantoja MD [Primary Care Provider] - Time of Disposition: 13:50 Medical Decision Making - Medical Records Medical records reviewed: No: I reviewed the patient's medical records. - Adrian Inquiry Pt receiving controlled substance: No Vital Signs: 02/20/21 13:09 02/20/21 14:00 Temperature 97.5 F L 97.5 F L Temperature Source Oral Pulse Rate 108 H Pulse Rate [Right] 111 H Respiratory Rate 16 14 Blood Pressure 115/67 Blood Pressure [Right Arm] 116/66 Blood Pressure Mean [Right Arm] 82 Blood Pressure Source [Right Arm] Automatic Cuff Blood Pressure Position [Right Arm] Sitting 02 Sat by Pulse Oximetry 99 - Lab Data Lab results reviewed: Yes: I reviewed the patient's lab results. Lab Results 02/20/21 13:20: Urine Color Red, Urine Appearance Cloudy, Urine pH 6.5, Ur Specific [place] 1.025, Urine Protein 3+, Urine Glucose (UA) Negative, Urine Ketones Small, Urine Blood 4+, Urine Nitrate Positive A, Urine Bilirubin 2+ A, Urine Urobilinogen 4, Ur Leukocyte Esterase 1+ A Orders (Tests/Meds): ED MEDICATIONS Discontinued Medications Generic Name Dose Route Start Last Admin Trade Name Freq PRN Reason Stop Dose Admin Ceftriaxone Sodium 1 gm 02/20/21 13:50 02/20/21 13:56 Ceftriaxone 1gm Vial IM 02/20/21 13:51 1 gm ONCE ONE Administration Protocol Lidocaine HCl 0 ml 02/20/21 13:50 02/20/21 13:56 Lidocaine 1% 5ml Pf Vial IM 02/20/21 13:51 2 ml ONCE ONE Administration ORDERS Category Date Time Status Urine Culture Stat Micro 02/20/21 13:38 Received Medical Decision Narrative: I explained how important close follow up is at this time and that if he gets any sicker (fever, chills, worsening symptoms, etc) to return at once. [facility] HPI - General Stated complaint: Poss UTI Time Seen by Provider: 02/20/21 13:32 Mode of Arrival: Ambulatory Source of Information: Patient Limitations: No Limitations Description of Symptoms (Recalled from Triage Doc. by RN): pt c/o painful urination HEENT Symptoms (Recalled from RN notes): No Resp Symptoms (Recalled from RN notes): No Skin Symptoms (Recalled from RN notes): No MS Symptoms (Recalled from RN notes): No Functional Status (Recalled from RN notes): na - History of Present Illness Provider Complaint: He states that since last night he has had worsening difficulty urinating. He always has urinary frequency, but not as bad as he has been having over the past 12 hours. He also c/o burning while voiding and he states that his urine looks like there's blood in it. He has had uti's in the past and his family says it seemed just like he does today. He denies any fever or chills. - Related Data Home Medications Medication Instructions Recorded Confirmed Bisoprolol Fumarate [Bisoprolol 5 mg PO DAILY 04/16/19 03/18/20 5mg Tablet] L
[2021-02-20 13:48] LABS: Apearance,Urine Cloudy (Clear); Color,Urine Red (Yellow); PH,Urine 6.5 (5.0-8.5); Specific Gravity, Urine 1.025 (1.005-1.030)
[2021-02-20 13:49] LABS: Bilirubin,Urine 2+ (Negative); Blood, Urine 4+ (Negative); Glucose,Urine (UA) Negative (Negative); Ketones,Urine SMALL (Negative); Protein,Urine 3+ (Negative); Urobilinogen,Urine 4 EU/dl (0.2)
[2021-02-20 13:50] LABS: UTC Leukocyte Esterase,Urine 1+ (Negative); UTC Nitrate,Urine Positive (Negative)
[2021-02-20 14:00] VITALS: BP 115/67; PULSE 108; RESP 14; TEMP 36.4
== END 2021-02-20 14:03 | disposition home or self-care (01) ==
PROVIDERS: Emergency Provider Nurse Practitioner Family; PCP Internal Medicine Adolescent Medicine
DX: N30.00 Acute cystitis without hematuria (principal); I48.91 Unspecified atrial fibrillation; J44.9 Chronic obstructive pulmonary disease, unspecified; Z87.891 Personal history of nicotine dependence; Z79.899 Other long term (current) drug therapy
CPT/HCPCS: G0463; 81003; 87086; 87088; 87186; 96372; 99202

== ENCOUNTER → 2021-04-22 08:44 | Outpatient (CLI) | payer MEDICARE, OTHER, SELFPAY ==
--- NOTE | 2021-04-22 08:47 | FL_ITS ---
PROCEDURE: FL BARIUM SWALLOW CLINICAL INDICATION: DYSPHAGIA UNSPECIFIED TYPE COMPARISON: CT CT CHEST WO CON from 10/30/2019 FINDINGS: Fluoroscopy time: 1.01 minute There is a small hiatal hernia with a constricting Schatzki's ring. The Schatzki's ring is causing approximately 60 percent stenosis. There is a small mid esophageal traction diverticulum. No annular constricting lesions or persistent polypoid filling defects are apparent. 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
== END ==
PROVIDERS: PCP Internal Medicine Adolescent Medicine; Visit Provider Internal Medicine Adolescent Medicine
DX: R13.10 Dysphagia, unspecified (principal)
CPT/HCPCS: 74220

== ENCOUNTER → 2021-05-05 11:57 | Outpatient (CLI) | payer MEDICARE, OTHER, SELFPAY ==
--- NOTE | 2021-05-05 12:08 | XR_ITS ---
PROCEDURE: XR CERVICAL SPINE 5V CLINICAL INDICATION: CERVICALGIA COMPARISON: [id number] XR cervical spine 5V from 11/28/2018 FINDINGS: There is normal alignment. No fracture or dislocation is evident. Mild foraminal narrowing is present on the left at C3-C4 and C4-C5 and on the right at C3-C4. Prominent anterior bridging osteophytes are present from C3-C7 consistent with DISH. There is mild upper cervical curvature convex right. There is degenerative disc disease at C3-C7. IMPRESSION: Multilevel cervical spondylosis as detailed above with DISH. The degenerative changes appears slightly worse from 11/28/2018. Dictated by: Ilan De La Garza MD 05/05/2021 12:40 Ilan De La Garza MD in [place] 05/05/2021 12:40
== END ==
PROVIDERS: PCP Nurse Practitioner Family; Visit Provider Nurse Practitioner Family
DX: M54.2 Cervicalgia (principal)
CPT/HCPCS: 72050

== ENCOUNTER → 2021-06-10 15:48 | Outpatient (CLI) | payer MEDICARE, OTHER, SELFPAY | PROVIDERS: Visit Provider Internal Medicine Gastroenterology | DX: Z01.812 Encounter for preprocedural laboratory examination (principal); Z11.52 Encounter for screening for COVID-19; Z13.810 Encounter for screening for upper gastrointestinal disorder | CPT/HCPCS: C9803; U0003; U0005 ==

== ENCOUNTER 2021-06-13 07:28 | Day surgery (SDC) | payer MEDICARE, OTHER, SELFPAY ==
[2021-06-09 12:59] VITALS: BMI 20.9
[2021-06-13] VITALS (7 sets, daily range): BP systolic 118–141; BP diastolic 62–75; PULSE 69–89; RESP 16–18; TEMP 36.2–36.3; O2SAT 97–100
--- NOTE | 2021-06-13 08:39 | P.PN_ITS ---
[facility] Anesthesia Checklist - Patient Identification Patient Identification: Arm Band - Structural Data Admitted From: Home Planned Operative Procedure/s: egd Consent for Planned Operative Procedure(s) Verified: Yes Verified Documents: Surgical Consent, History and Physical - NPO Status Verified Time NPO: 00:00 - Additional verifications Anesthesia Reactions: No - Airway Assessment C-Spine Mobility Assessed: Yes (mp2) TMJ Mobility Assessed: Yes Dentition: Good Dentition - Neurological Assessment Level of Consciousness: Awake, Alert - Anesthesia Plan Anesthesia Risk discussed: Yes Anesthesia Plan: Verified ASA Class: III Anesthesia Type: MAC [facility] History I have reviewed the patient's past medical history: Yes Medical History: Reports:: Atrial Fibrillation, Chronic Obstructive Pulmonary Disease (COPD), Hyperlipidemia, Hypertension Denies:: Cancer, Diabetes Mellitus Type 1, Diabetes Mellitus Type 2, Internal Pacemaker, MRSA *Have you ever received a pneumonia vaccine?: Yes *Have you received a flu vaccine this season?: Yes Other Medical History: Reports: Hypothyroidism Anesthesia experience/problems:: nac Other Surgeries: Yes: Colonoscopy, Other. No: Pacemaker Amputation: No - *Social History Last grade of school completed: High school graduate Smoking Status: Former smoker Tobacco Type: cigarettes Alcohol Intake: never Substance Use Type: denies use *Occupational Status:: retired Housing: house Household Members: spouse *Travel in the last 8 weeks: None Family Hx:: No significant family history
--- NOTE | 2021-06-13 08:55 | HMH.PROC ---
[facility] Procedure Note Procedure Note:: Upper Endoscopy Procedure Report: Esophagogastroduodenoscopy with cold biopsies and TTS balloon dilation Endoscopost: Ric Morillo II, MD Referring Physician: Wilder Panotja M.D. Date of Procedure: 06/13/2021 Equipment: Olympus GIF 190 standard upper endoscope Sedation: MAC sedation Indications: Mr. Arriola is a 76-year-old gentleman who is here for diagnostic upper endoscopy secondary to dysphagia. He does have solid food dysphagia and has to regurgitate this. He has had this for more than a year. He does get some regurgitation and belching. He reports no heartburn, reflux, chest pain or abdominal pain. He does feel that his dysphagia is in the lower retrohyoid region. He has lost some weight. Procedure: Prior to the procedure, a history and physical exam was performed, and patient's medications and allergies were reviewed. The risks, benefits and alternatives of the sedation and procedure were discussed with the patient. All questions were answered and informed consent was obtained. The patient was brought to the procedure room. Patient identification and proposed procedure were verified by the physician and the nurse. The patient was placed in a left lateral decubitus position and the scope was passed under direct vision. Throughout the procedure, the patient's blood pressure, pulse, and oxygen saturations were monitored continuously. The upper GI endoscopy was accomplished without difficulty. The patient tolerated the procedure well. Findings: The scope was passed directly into the upper esophagus and advanced to the third portion of the duodenum. The post bulbar duodenum and duodenal bulb were normal with normal mucosa and conniventes. The scope was withdrawn through a normal duodenal bulb and pylorus into the stomach. There was very mild reactive gastropathy of the antrum. There was moderate chronic atrophic gastritis of the body and fundus. 4 biopsies were taken from the fundus of the stomach to rule out atrophic gastritis/intestinal metaplasia. Upon retroflexion there was a very small 1 to 2 cm hiatal hernia. The scope was then withdrawn into the esophagus. There was a distal Schatzki's ring. There was also moderate tertiary contractions and moderate esophageal dysmotility. There was a mid esophageal diverticulum. The entire esophagus was dilated to 60 Italian/20 mm with a TTS hydrostatic balloon. The original Schatzki's ring diameter was 7 mm and this was dilated to 20 mm. There was some resistance at the cricopharyngeus/cricopharyngeal spasm. The remainder of the esophageal mucosa was normal. Impression: 1. Cricopharyngeal spasm status post dilation to 20 mm 2. Schatzki's ring dilated to 20 mm (from 7 mm diameter) 3. Moderate esophageal dysmotility with mid esophageal diverticulum, nonerosive GERD and very small sliding 1 to 2 cm hiatal hernia 4. Chronic atrophic gastritis Plan: I will follow-up the biopsies. The patient should not be on PPI therapy because of the chronic atrophic gastritis and loss of parietal cells. I will check B12 and iron studies as well as antiparietal cell antibodies. The patient should have clinical improvement with dilation.
[2021-06-13 13:24] LABS: Vitamin B12 322 pg/mL (239-931)
[2021-06-13 13:25] LABS: Iron 87 ug/dL (49-181)
[2021-06-13 14:01] LABS: Ferritin 116 ng/ml (17.9-464)
[2021-06-13 15:40] LABS: Total Iron Binding Capacity 253 ug/dL (261-462)
[2021-06-14 15:10] LABS: Antiparietal Cell Antibody 73.5 Units (0.0-20.0)
== END 2021-06-13 09:58 | disposition home or self-care (01) ==
LOC: OUTP 07:30
PROVIDERS: PCP Internal Medicine Adolescent Medicine; Visit Provider Internal Medicine Gastroenterology
PROC: 0DJ08ZZ Inspection of Upper Intestinal Tract, Via Natural or Artificial Opening Endoscopic (ICD-10-PCS; CPT 43235; principal; 2021-06-13 08:30)
DX: R13.10 Dysphagia, unspecified (principal); J39.2 Other diseases of pharynx; K22.2 Esophageal obstruction; K22.4 Dyskinesia of esophagus; K22.5 Diverticulum of esophagus, acquired; K44.9 Diaphragmatic hernia without obstruction or gangrene; K29.40 Chronic atrophic gastritis without bleeding; I48.91 Unspecified atrial fibrillation; J44.9 Chronic obstructive pulmonary disease, unspecified; E78.5 Hyperlipidemia, unspecified; I10 Essential (primary) hypertension; E03.9 Hypothyroidism, unspecified
CPT/HCPCS: 43239; 43249; 36415; 82607; 82728; 83516; 83540; 83550; 88305; 88342; C1726

== ENCOUNTER 2021-06-28 15:00 | Outpatient (RCR) | payer MEDICARE, OTHER, SELFPAY ==
--- NOTE | 2021-05-13 11:15 | HMH.PTOPEV ---
PT Outpatient Evaluation Rehab PT Outpatient Evaluation Start: 05/13/21 09:27 Freq: Status: Active Protocol: Document 05/13/21 10:29 VIVIAN (Rec: 05/13/21 11:15 PHORNE [id number]) Electronically Signed By Davon Jacobs, PT 05/13/21 10:29 Outpatient Therapy Subjective History Subjective History Pt is 76 year old male who presents with c/o neck pain for several months and age- related balance deficits. Pt reports sharp neck pain extends into shoulders, but denies numbness and tingling. No B UE cervical radiculopathy present. Pt states pain worsens with mvmt and causes sleep disruptions. Heat and topical lotions has alleviated neck pain. Pt has hx of fall ~ October 2020. Pt reports he turned around quick and lost his balance. Pt lives with , son and reports no stairs at home and no use of AD. No numbness, tingling into LE. Chief Complaint Pain Symptom Type Sharp Symptoms Relieved By Rest/Positioning,Heat,OTC Meds Symptoms Aggravated By Sitting Current Functional Limitations Reaching,Lifting,Housework, Sleeping,Stairs,Balance, Bending/Stooping Symptom Description Intermittent Level of pain today (0-10) 7 Pain scale - at its best (0-10) 2 Pain scale - at its worst (0-10) 10 Cervical Eval Palpation Cervical Muscles R CT Junction,L CT Junction,R Upper Trapezius,L Upper Trapezius Cervical/Thoracic Palpation Findings Tenderness Posture Head/C-Spine Posture Sitting Position Flexed,C-Spine Flattened Flexibility Deficits Upper Trapezius Muscle Length (R) Moderate Tightness,(L) Moderate Tightness Passive Joint Mobility Cervical PIVM Dec: R C2/3 L C2/3 R C3/4 L C3/4 R C4/5 L C4/5 R C5/6 L C5/6 R C6/7 L C6/7 R C7/T1
--- NOTE | 2021-06-10 15:50 | HMH.RHREAS ---
Rehab Reassessment Rehab OP Re-assessment Start: 06/10/21 15:41 Freq: Status: Active Protocol: Document 06/10/21 15:41 VIVIAN (Rec: 06/10/21 15:50 PHOZANE [id number]) Electronically Signed By Davon Jacobs, PT 06/10/21 15:41 Rehab Re-assessment Subjective Subjective Pt reports, I feel like I'm improving. I'm doing my exercises at home and I'm having less pain in my back. Note completed by Lorie Manzano , SPT. Objective Objective Notes Cervical ROM: flex = 0-30, ext = 35-0, R rot = 40, L rot = 45, R SB = 20, L SB = 15 TUs Assessment Progress Assessment Progressing as Expected Assessment Notes Pt's cervical ROM and balance has improved compared to initial evaluation. Patient goals met ST,2,3,5,[address], LT,2,3,4,5,6 Revised Goals none Plan Plan Continue with POC per initial evaluation Frequency of Therapy 2x/wk Duration of therapy 8 weeks Time and Billing Re-Eval Time 15 Re-Eval Billing Units 0 PHYSICIAN CERTIFICATION: I certify the specified therapy services for Sajan Arriola are required, authorized, and reviewed every 30 days.
== END 2021-06-28 15:05 | disposition home or self-care (01) ==
LOC: PT 15:00
PROVIDERS: PCP Nurse Practitioner Family; Visit Provider Internal Medicine Adolescent Medicine
DX: R26.81 Unsteadiness on feet (principal); M54.2 Cervicalgia
CPT/HCPCS: 97110; 97163; 97164; 97530

== ENCOUNTER → 2021-07-14 17:23 | Outpatient (CLI) | payer MEDICARE, OTHER, SELFPAY | PROVIDERS: Visit Provider Internal Medicine Adolescent Medicine | DX: R30.0 Dysuria (principal); B96.4 Proteus (mirabilis) (morganii) as the cause of diseases classified elsewhere | CPT/HCPCS: 87086; 87088; 87186 ==

== ENCOUNTER 2021-10-14 12:38 | Emergency (ER) | payer MEDICARE, OTHER, SELFPAY ==
[2021-10-14] VITALS (12 sets, daily range): BP systolic 106–144; BP diastolic 54–86; PULSE 73–94; RESP 18; TEMP 36.4; O2SAT 97–99; BMI 17.4
--- NOTE | 2021-10-14 13:12 | ECG_ITS ---
APPROVED REPORT Exam: Resting ECG HR:83 bpm ECG Measurements Heart Rate 83 AXES FL 170 P 78 QRSd 120 QRS 67 QT 376 T 81 QTc 415 Conclusion SINUS RHYTHM POSSIBLE RIGHT VENTRICULAR CONDUCTION DELAY [RSR (QR) IN V1/V2] PROBABLE INFERIOR MYOCARDIAL INFARCTION , PROBABLY OLD [35 ms Q WAVE IN II/aVF] PROBABLE ANTEROLATERAL MYOCARDIAL INFARCTION , OF INDETERMINATE AGE [35 ms Q WAVE IN I/aVL/V3-V6] ABNORMAL ECG UNCONFIRMED REPORT Electronically signed by : Wilder Pantoja MD 10/17/2021 17:31:15
[2021-10-14 13:53] LABS: Chloride 99 mmol/L (98-107); Sodium 140 mmol/L (136-145)
[2021-10-14 13:55] LABS: Alanine Aminotransferase 18 U/L (12-78); Alkaline Phosphatase 97 U/L (38-126); Aspartate Amino Transferase 32 U/L (17-59); Bilirubin,Total 0.8 mg/dl (0.2-1.3); Blood Urea Nitrogen 24 mg/dl (9-20); Creatinine Clearance Estimated 51 mL/min (50-200); Estimated Glomerular Filt Rate 65 ml/min (>60); GFR (African American) 79 ML/MIN (>60)
[2021-10-14 13:56] LABS: Albumin Level 4.1 g/dl (3.5-5.0); Albumin/Globulin Ratio 1.2 (1.1-1.8); Basophils % 0.7 % (0.1-2.0); Calcium 9.5 mg/dl (8.4-10.2); Carbon Dioxide 34 mmol/L (22.0-30.0); Eosinophils % 0.8 % (0.1-12.0); Globulin 3.3 g/dL (1.3-3.2); Glucose 111 mg/dl (74-100); Hematocrit 40.7 % (42.0-52.0); Hemoglobin 13.5 g/dL (14.1-18.0); Lymphocytes # 0.8 K/mm3 (0.7-4.5); Lymphocytes % 18.2 % (10-50); Mean Corpuscular HGB Conc 33.3 g/dL (31.8-35.4); Mean Corpuscular Volume 84.2 fl (80-94); Mean Platelet Volume 7.7 fl (7.4-10.4); Monocytes # 0.3 K/mm3 (0.1-1.0); Monocytes % 5.6 % (1.7-9.3); Neutrophils # 3.4 K/mm3 (1.8-7.8); Neutrophils % 74.7 % (37.0-80.0); Platelet Count 261 K/mm3 (142-424); Red Blood Count 4.83 M/mm3 (4.60-6.20); Red Cell Distribution Width 13.4 % (11.5-17.5); Total Protein,Serum 7.4 g/dl (6.3-8.2); White Blood Count 4.5 K/mm3 (4.8-10.8)
--- NOTE | 2021-10-14 14:00 | PC.NURSE ---
LAB CALLED WITH CRITICAL POTASSIUM 3.0 MD AWARE
[2021-10-14 14:09] LABS: Troponin I < 0.01 ng/ml (0.00-0.034)
--- NOTE | 2021-10-14 14:15 | PC.NURSE ---
Patient back from restroom; hooked back up to monitor. No needs at this time
[2021-10-14 16:20] LABS: Troponin I < 0.01 ng/ml (0.00-0.034)
--- NOTE | 2021-10-14 17:42 | PC.NURSE ---
Patient hooked back up to the monitor and has no needs at this time
--- NOTE | 2021-10-14 17:56 | HMH.EDGENADL ---
ED Disposition Clinical Impression: Mass of brain Disposition: Home, Self-Care Condition on Discharge: Good Additional Instructions: Call Dr. Pantoja's office on Sunday to make a follow-up appointment for this week for further evaluation and outpatient MRI. Referrals: Wilder Pantoja MD [Primary Care Provider] - - Critical Care Critical Care Time: No Attestation: On 10/14/21, the high probability of a clinically significant, sudden or life threatening deterioration of the following system(s) required my full and direct attention, intervention and personal management. The time I documented below is in addition to time spent performing reported procedures but includes the following listed in this critical care notation. Medical Decision Making - Adrian Inquiry Pt receiving controlled substance: No Vital Signs: 10/14/21 12:39 10/14/21 13:00 10/14/21 13:30 Temperature 97.6 F Temperature Source Oral Pulse Rate 82 81 Pulse Rate [Right Radial] 90 Respiratory Rate 18 18 18 Blood Pressure 136/68 128/66 Blood Pressure [Right Arm] 144/77 H Blood Pressure Mean 85 87 Blood Pressure Mean [Right Arm] 99 Blood Pressure Source [Right Arm] Automatic Cuff Blood Pressure Position [Right Arm] Sitting 02 Sat by Pulse Oximetry 97 99 99 Oxygen Delivery Method Room Air 10/14/21 14:00 10/14/21 14:30 10/14/21 14:46 Temperature Temperature Source Pulse Rate 94 H 80 91 H Pulse Rate [Right Radial] Respiratory Rate 18 18 Blood Pressure 134/86 141/66 H 141/66 H Blood Pressure [Right Arm] Blood Pressure Mean 102 91 Blood Pressure Mean [Right Arm] Blood Pressure Source [Right Arm] Blood Pressure Position [Right Arm] 02 Sat by Pulse Oximetry 98 98 98 Oxygen Delivery Method Room Air Room Air Room Air 10/14/21 15:00 10/14/21 15:30 10/14/21 16:30 Temperature Temperature Source Pulse Rate 82 85 87 Pulse Rate [Right Radial] Respiratory Rate 18 18 18 Blood Pressure 115/63 130/64 132/69 Blood Pressure [Right Arm] Blood Pressure Mean 80 89 93 Blood Pressure Mean [Right Arm] Blood Pressure Source [Right Arm] Blood Pressure Position [Right Arm] 02 Sat by Pulse Oximetry 98 99 98 Oxygen Delivery Method Room Air Room Air Room Air 10/14/21 17:43 10/14/21 18:03 Temperature Temperature Source Pulse Rate 73 94 H Pulse Rate [Right Radial] Respiratory Rate 18 18 Blood Pressure 132/62 106/54 L Blood Pressure [Right Arm] Blood Pressure Mean 98 66 Blood Pressure Mean [Right Arm] Blood Pressure Source [Right Arm] Blood Pressure Position [Right Arm] 02 Sat by Pulse Oximetry 97 99 Oxygen Delivery Method Room Air Room Air - Lab Data Lab Results 10/14/21 13:27: WBC 4.5 L, RBC 4.83, Hgb 13.5 L, Hct 40.7 L, MCV 84.2, MCH 28.0, MCHC 33.3, RDW 13.4, Plt Count 261, MPV 7.7, Neut % (Auto) 74.7, Lymph % (Auto) 18.2, [place] % (Auto) 5.6, Eos % (Auto) 0.8, Baso % (Auto) 0.7, Neut # (Auto) 3.4, Lymph # (Auto) 0.8, [place] # (Auto) 0.3, Eos # (Auto) 0.0, Baso # (Auto) 0.0 10/14/21 13:27: Sodium 140, Potassium 3.0 L, Chloride 99, Carbon Dioxide 34 H, Anion Gap 10.0, BUN 24 H, Creatinine 1.10, Estimated Creat Clear 51, Estimated GFR 65, Est GFR ( Amer) 79, Glucose 111 H, Calcium 9.5, Total Bilirubin 0.8, AST 32, ALT 18, Alkaline Phosphatase 97, Troponin I < 0.01, Total Protein 7.4, Albumin 4.1, Globulin 3.3 H, Albumin/Globulin Ratio 1.2 10/14/21 15:50: Troponin I < 0.01 Result diagrams: 10/14/21 13:27 10/14/21 13:27 Orders (Tests/Meds): ED MEDICATIONS Discontinued Medications Generic Name Dose Route Start Last Admin Trade Name Freq PRN Reason Stop Dose Admin Potassium Chloride 40 meq 10/14/21 17:56 10/14/21 18:06 Potassium Chloride 20meq Tab PO 10/14/21 17:57 40 meq ONCE ONE Administration - CT Data CT Scan: Head Time Received: 19:[address] Reviewed: Yes: I have viewed the radiologist's interpretation Findings Narrative: Exam: CT H
--- NOTE | 2021-10-14 18:01 | CT_ITS ---
PROCEDURE INFORMATION: Exam: CT Head Without Contrast Exam date and time: 10/14/2021 6:01 PM Age: 76 years old Clinical indication: Numbness / parasthesia; Additional info: Numbness rue and R cheek TECHNIQUE: Imaging protocol: Computed tomography of the head without contrast. Radiation optimization: All CT scans at this facility use at least one of these dose optimization techniques: automated exposure control; mA and/or kV adjustment per patient size (includes targeted exams where dose is matched to clinical indication); or iterative reconstruction. COMPARISON: CR XR CERVICAL SPINE 5V 05/05/2021 12:11 PM FINDINGS: Brain: Atrophy and chronic small vessel ischemic changes. No hemorrhage. No mass effect or midline shift. There is a 2.1 x 1.6 cm soft tissue mass in the region of left Meckel's cave. 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 Cerebral ventricles: No ventriculomegaly. Paranasal sinuses: Visualized sinuses are unremarkable. No fluid levels. Mastoid air cells: Hypoaeration of the left mastoid air cells with scattered opacification as well as scattered opacification in the right mastoid air cells. Bones/joints: Unremarkable. No acute fracture. Soft tissues: Unremarkable. IMPRESSION: 1. Chronic changes in the brain but no acute intracranial abnormality. 2. There are soft tissue masses in bilateral Meckel's cave regions. Recommend MRI of the brain with and without contrast to further evaluate these findings
--- NOTE | 2021-10-14 18:08 | PC.NURSE ---
notified rad of CT order
--- NOTE | 2021-10-14 18:20 | PC.NURSE ---
Patient back to room from [facility]
== END 2021-10-14 20:27 | disposition home or self-care (01) ==
PROVIDERS: Emergency Provider Emergency Medicine; PCP Internal Medicine Adolescent Medicine
DX: R22.0 Localized swelling, mass and lump, head (principal); I48.0 Paroxysmal atrial fibrillation; J44.9 Chronic obstructive pulmonary disease, unspecified; E78.5 Hyperlipidemia, unspecified; I10 Essential (primary) hypertension; E03.9 Hypothyroidism, unspecified; Z87.891 Personal history of nicotine dependence; H91.93 Unspecified hearing loss, bilateral
CPT/HCPCS: 36415; 70450; 80053; 84484; 85025; 93005; 99283

== ENCOUNTER 2021-10-20 05:08 | Emergency (ER) | payer MEDICARE, OTHER, SELFPAY ==
[2021-10-20] VITALS (7 sets, daily range): BP systolic 131–166; BP diastolic 62–83; PULSE 72–87; RESP 16–18; TEMP 36.6; O2SAT 97–99; BMI 17.9
--- NOTE | 2021-10-20 05:08 | CT_ITS ---
PROCEDURE INFORMATION: Exam: CT Abdomen And Pelvis With Contrast Exam date and time: 10/20/2021 5:08 AM Age: 76 years old Clinical indication: Abdominal pain; Localized; Lower; Additional info: Low abd discomfort with constipation TECHNIQUE: Imaging protocol: Computed tomography of the abdomen and pelvis with contrast. Radiation optimization: All CT scans at this facility use at least one of these dose optimization techniques: automated exposure control; mA and/or kV adjustment per patient size (includes targeted exams where dose is matched to clinical indication); or iterative reconstruction. Contrast material: ISOVUE; Contrast volume: 75 ml; Contrast route: IV; COMPARISON: CT ABDOMEN PELVIS WO CON 05/27/2019 2:14 PM FINDINGS: Lungs: There is some pleuroparenchymal scarring in the right lung base. There are pleural calcifications in the same region. Liver: There are a few calcified granulomas in the liver. There is no mass or intrahepatic bile duct dilatation. Gallbladder and bile ducts: There is a large gallstone in the gallbladder. Pancreas: The pancreas is normal in appearance, without evidence of mass, cyst, peripancreatic inflammatory change, or pancreatic duct dilatation. Spleen: The spleen measures approximately 12.8 cm maximum AP dimension on axial image 28. Multiple calcified splenic granulomas are noted. Adrenal glands: Both adrenal glands are normal in appearance, without evidence of mass or focal abnormality. Kidneys and ureters: Both kidneys are normal in appearance, without evidence of nephrolithiasis or hydronephrosis. Stomach and bowel: The stomach is normal in appearance, without evidence of mass or wall thickening. The small bowel is normal in appearance, without evidence of wall thickening, perienteric inflammatory change, or small bowel obstruction. The terminal ileum and cecum are within normal limits. The ascending, transverse, and descending colon are within normal limits. There is abundant fecal material throughout the colon. Appendix: The appendix is normal in appearance, without evidence of wall thickening or periappendiceal fat stranding. Intraperitoneal space: Unremarkable. No free air. No significant fluid collection. Vasculature: There is mild dilatation of the infrarenal abdominal aorta which measures approximately 2.6 x 2.9 cm on axial image 54. This is not significantly changed compared to the prior CT examination from 05/27/2019. Lymph nodes: Unremarkable. No enlarged lymph nodes. Urinary bladder: The urinary bladder has unusual appearance, with areas of wall thickening, and some areas of bladder wall septation. No discrete mass is identified. There is at least 1 bladder diverticulum on the left. Reproductive: Unremarkable as visualized. Bones/joints: Unremarkable. No acute fracture. Soft tissues: Unremarkable. IMPRESSION: 1. Moderate stool burden in the colon. This may be seen with constipation. Clinical correlation is suggested. 2. Cholelithiasis, without evidence of cholecystitis. 3. 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 4. Bladder wall thickening, septations, and diverticulum as described. This is similar in appearance to that seen on the previous CT examination.
--- NOTE | 2021-10-20 05:08 | CT_ITS ---
PROCEDURE INFORMATION: Exam: CT Neck With Contrast Exam date and time: 10/20/2021 5:08 AM Age: 76 years old Clinical indication: Dysphagia / difficulty swallowing; Additional info: Dysphagia, HX of malignancy TECHNIQUE: Imaging protocol: Computed tomography images of the neck with contrast. Radiation optimization: All CT scans at this facility use at least one of these dose optimization techniques: automated exposure control; mA and/or kV adjustment per patient size (includes targeted exams where dose is matched to clinical indication); or iterative reconstruction. Contrast material: ISOVUE; Contrast volume: 50 ml; Contrast route: IV; COMPARISON: CT CHEST W CON 10/20/2021 6:16 AM FINDINGS: Nasopharynx: Unremarkable. Oropharynx: There is a small cystic appearing structure within the left lingual tonsil measuring up to 5 mm in diameter.. No significant tonsillar enlargement. Hypopharynx: Unremarkable. Larynx: Unremarkable. Normal epiglottis. Retropharyngeal space: Unremarkable. Submandibular/Parotid glands: Normal. Glands are normal in size. Thyroid: Normal. No enlarged or calcified nodules. Lymph nodes: Unremarkable. No lymphadenopathy. Trachea: Visualized trachea is unremarkable. Lungs: Unremarkable as visualized. Bones/joints: There are ventral bridging osteophytes. There is degenerative disc disease and spondylosis.. No acute fracture. Vasculature: There are complex, saccular carotid siphon aneurysms bilaterally, left significantly greater than right. These measure up to 15 mm in diameter. CTA is recommended for further evaluation. Soft tissues: Unremarkable. No significant soft tissue swelling. IMPRESSION: 1. Large, complex bilateral internal carotid artery aneurysms. CTA head is recommended for further evaluation. 2. No acute soft tissue abnormality.
--- NOTE | 2021-10-20 05:08 | CT_ITS ---
PROCEDURE INFORMATION: Exam: CT Chest With Contrast; Diagnostic Exam date and time: 10/20/2021 5:08 AM Age: 76 years old Clinical indication: Shortness of breath; Additional info: SOB, dysphagia, HX of malignancy TECHNIQUE: Imaging protocol: Diagnostic computed tomography of the chest with contrast. Radiation optimization: All CT scans at this facility use at least one of these dose optimization techniques: automated exposure control; mA and/or kV adjustment per patient size (includes targeted exams where dose is matched to clinical indication); or iterative reconstruction. Contrast material: ISOVUE; Contrast volume: 75 ml; Contrast route: IV; COMPARISON: CT CHEST WO CON 10/30/2019 3:54 PM FINDINGS: Lungs: There is a nodular opacity a in the right upper lobe measuring 5.4 mm on axial image 17 series 5. There is associated pleuroparenchymal scarring. This is similar in appearance to that seen on the previous CT examination from 10/30/2019. There is some faint reticulonodular opacities in the right upper lobe co several faint ground-glass nodules are noted in the right upper lobe on axial image 30 series 5. Calcified granuloma left upper lobe on image 31 is unchanged. There is a nodule in the left upper lobe measuring 4.7 mm on axial image 25. There is a 3.3 mm nodule left upper lobe on image 24. There are multiple faint interstitial opacities in the left upper lobe, and to a lesser extent the right upper lobe. Some of these appear located around peripheral bronchioles. There is airspace and interstitial opacities with some pleuroparenchymal scarring in the periphery of the right lung base. No consolidation. Pleural spaces: Unremarkable. No pneumothorax. No pleural effusion. Heart: Unremarkable. No cardiomegaly. No pericardial effusion. Aorta: Unremarkable. No aortic aneurysm. Lymph nodes: Unremarkable. No enlarged lymph nodes. Bones/joints: Unremarkable. No acute fracture. Soft tissues: Unremarkable. IMPRESSION: 1. Stable appearance of pulmonary nodules in both upper lobes. 2. Chronic interstitial changes in both lungs as described. Presence of faint peribronchial reticular and nodule opacities in both upper lobes may be seen with infectious or inflammatory bronchiolitis. However, no organized consolidation or pneumonia is identified. 3. Fleischner Society follow up recommendations for incidental nodules are not indicated. Follow up per the patient's medical condition.
[2021-10-20 05:20] LABS: Basophils # 0.1 K/mm3 (0-0.2); Basophils % 1.9 % (0.1-2.0); Eosinophils # 0.1 K/mm3 (0.0-0.4); Eosinophils % 1.4 % (0.1-12.0); Hematocrit 43.8 % (42.0-52.0); Hemoglobin 14.2 g/dL (14.1-18.0); Lymphocytes # 1.1 K/mm3 (0.7-4.5); Lymphocytes % 27.3 % (10-50); Mean Corpuscular HGB Conc 32.4 g/dL (31.8-35.4); Mean Corpuscular Hemoglobin 28.1 pg (27.0-31.2); Mean Corpuscular Volume 86.7 fl (80-94); Mean Platelet Volume 7.9 fl (7.4-10.4); Monocytes # 0.3 K/mm3 (0.1-1.0); Monocytes % 6.9 % (1.7-9.3); Neutrophils # 2.4 K/mm3 (1.8-7.8); Neutrophils % 62.5 % (37.0-80.0); Platelet Count 287 K/mm3 (142-424); Red Blood Count 5.06 M/mm3 (4.60-6.20); Red Cell Distribution Width 14.1 % (11.5-17.5); White Blood Count 3.9 K/mm3 (4.8-10.8)
[2021-10-20 05:21] LABS: Chloride 99 mmol/L (98-107); Potassium 3.3 mmoL/L (3.5-5.1); Sodium 137 mmol/L (136-145)
[2021-10-20 05:24] LABS: Alanine Aminotransferase 15 U/L (12-78); Albumin Level 4.3 g/dl (3.5-5.0); Albumin/Globulin Ratio 1.3 (1.1-1.8); Alkaline Phosphatase 115 U/L (38-126); Anion Gap 8.3 mEq/L (5-15); Aspartate Amino Transferase 27 U/L (17-59); Bilirubin,Total 0.7 mg/dl (0.2-1.3); Blood Urea Nitrogen 22 mg/dl (9-20); Carbon Dioxide 33 mmol/L (22.0-30.0); Creatinine Clearance Estimated 52 mL/min (50-200); Estimated Glomerular Filt Rate 65 ml/min (>60); GFR (African American) 79 ML/MIN (>60); Globulin 3.3 g/dL (1.3-3.2); Total Protein,Serum 7.6 g/dl (6.3-8.2)
[2021-10-20 05:25] LABS: Calcium 9.8 mg/dl (8.4-10.2); Glucose 99 mg/dl (74-100)
--- NOTE | 2021-10-20 07:07 | HMH.EDGENADL ---
ED Disposition Clinical Impression: Internal carotid aneurysm, Dysphagia, Constipation Disposition: Home, Self-Care Condition on Discharge: Good Instructions: Constipation, Brain Aneurysm Additional Instructions: Please follow up with your primary care physician in 2-3 days for further management. please keep your appointment with Neurosurgery appointment. you will be called to set up an appointment in 1-2 wks. Please bring MRI images and CT scan from ED visit today to your Neurosurgery visit. Please keep your appointment with GI for your scope and your appointment for MRI. Please return to the ED for any concerning symptoms such as inability to eat and drink, chest pain, difficulty breathing or any other concerning symptoms. Please use the miralax and docusate/senna for bowel movements. Please return also if unable to have a bowel movement. Prescriptions: Sennosides/Docusate Sodium [Docusate Sodium-Senna Tablet] 1 each PO BID #30 tab Transmission Status: Pending to [facility] polyethylene glycoL 3350 [Miralax 17gm Packet] 17 gm PO DAILYP PRN #1 packet PRN Reason: Constipation Transmission Status: Pending to [facility] Referrals: Wilder Pantoja MD [Primary Care Provider] - Time of Disposition: 07:30 - Critical Care Critical Care Time: No Attestation: On 10/20/21, the high probability of a clinically significant, sudden or life threatening deterioration of the following system(s) required my full and direct attention, intervention and personal management. The time I documented below is in addition to time spent performing reported procedures but includes the following listed in this critical care notation. Medical Decision Making - Medical Records Medical records reviewed: Yes: I reviewed the patient's medical records. - Adrian Inquiry Pt receiving controlled substance: No Vital Signs: 10/20/21 04:59 10/20/21 05:30 10/20/21 06:00 Temperature 97.8 F Temperature Source Oral Pulse Rate 80 84 Pulse Rate [Right Radial] 81 Respiratory Rate 16 Blood Pressure 138/69 140/68 Blood Pressure [Right Arm] 131/78 Blood Pressure Mean Blood Pressure Mean [Right Arm] 95 Blood Pressure Source [Right Arm] Automatic Cuff Blood Pressure Position Blood Pressure Position [Right Arm] Sitting 02 Sat by Pulse Oximetry 99 98 98 Oxygen Delivery Method Room Air 10/20/21 07:00 10/20/21 07:30 10/20/21 09:46 Temperature Temperature Source Pulse Rate 72 85 79 Pulse Rate [Right Radial] Respiratory Rate 18 Blood Pressure 145/62 H 138/73 166/83 H Blood Pressure [Right Arm] Blood Pressure Mean 87 94 Blood Pressure Mean [Right Arm] Blood Pressure Source [Right Arm] Blood Pressure Position Sitting Blood Pressure Position [Right Arm] 02 Sat by Pulse Oximetry 98 98 98 Oxygen Delivery Method Room Air Room Air - Lab Data Lab results reviewed: Yes: I reviewed the patient's lab results. Lab Results 10/20/21 05:09: WBC 3.9 L, RBC 5.06, Hgb 14.2, Hct 43.8, MCV 86.7, MCH 28.1, MCHC 32.4, RDW 14.1, Plt Count 287, MPV 7.9, Neut % (Auto) 62.5, Lymph % (Auto) 27.3, [place] % (Auto) 6.9, Eos % (Auto) 1.4, Baso % (Auto) 1.9, Neut # (Auto) 2.4, Lymph # (Auto) 1.1, [place] # (Auto) 0.3, Eos # (Auto) 0.1, Baso # (Auto) 0.1 10/20/21 05:09: Sodium 137, Potassium 3.3 L, Chloride 99, Carbon Dioxide 33 H, Anion Gap 8.3, BUN 22 H, Creatinine 1.10, Estimated Creat Clear 52, Estimated GFR 65, Est GFR ( Amer) 79, Glucose 99, Calcium 9.8, Total Bilirubin 0.7, AST 27, ALT 15, Alkaline Phosphatase 115, Total Protein 7.6, Albumin 4.3, Globulin 3.3 H, Albumin/Globulin Ratio 1.3 Result diagrams: 10/20/21 05:09 10/20/21 05:09 Orders (Tests/Meds): ED MEDICATIONS Discontinued Medications Generic Name Dose Route Start Last Admin Trade Name Freq PRN Reason Stop Dose Admin Lactated Ringer's 500 mls @ 999 mls/hr 10/20/21 05:30 Lactated Ringer's 1000 Ml Bag IV
--- NOTE | 2021-10-20 07:45 | CT_ITS ---
FINAL REPORT TECHNIQUE: Thin section axial CT with IV contrast supplemented with multiplanar reconstruction under CT angiogram protocol. This study was performed with techniques to keep radiation doses as low as reasonably achievable (ALARA). Individualized dose reduction techniques using automated exposure control or adjustment of mA and/or kV according to the patient''s size were employed. NASCET criteria was utilized during interpretation. CLINICAL HISTORY: large aneurysms FINDINGS: Aortic arch: Arch shows no significant narrowing. Great vessel origins are widely patent. There is mild plaque in the bilateral common carotid arteries and proximal left subclavian artery without significant stenosis. Right carotid: No significant stenosis is seen of the cervical common or internal carotid artery. Left carotid: No significant stenosis is seen of the cervical common or internal carotid artery. Vertebral: Left vertebral artery is dominant. No significant stenosis is present. IMPRESSION: No significant stenosis or major branch occlusion. Reviewed, Interpreted and Dictated by Mohan Licona III, MD Transcribed by Maryjane Molina Authenticated by Mohan Licona III, MD on 10/20/2021 09:22:51 AM [facility]
--- NOTE | 2021-10-20 07:45 | CT_ITS ---
FINAL REPORT CLINICAL HISTORY: large aneurysms COMPARISON: 10/14/2021 FINDINGS: Axial images of the head were obtained without contrast. Coronal reformatted images were also obtained. This study was performed with techniques to keep radiation doses as low as reasonably achievable (ALARA). Individualized dose reduction techniques using automated exposure control or adjustment of mA and/or kV according to the patient's size were employed. Please note there is residual contrast from prior contrast administration. There is generalized age-appropriate atrophy. Periventricular low-attenuation areas are seen consistent with moderate chronic ischemic changes. Findings are stable since prior. There is mild ventriculomegaly, stable. There is no evidence of midline shift. There is prominent soft tissue in the region of the cavernous sinuses, stable. IMPRESSION: Atrophy and moderate periventricular chronic ischemic changes. No acute intracranial abnormality identified. Reviewed, Interpreted and Dictated by Mohan Licona III, MD Transcribed by Maryjane Molina Authenticated by Mohan Licona III, MD on 10/20/2021 09:22:50 AM [facility]
--- NOTE | 2021-10-20 07:45 | CT_ITS ---
FINAL REPORT TECHNIQUE: Thin section axial CT with IV contrast supplemented with multiplanar reconstruction under CT angiogram protocol. 3-D reconstructions were performed. This study was performed with techniques to keep radiation doses as low as reasonably achievable (ALARA). Individualized dose reduction techniques using automated exposure control or adjustment of mA and/or kV according to the patient''s size were employed. 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 There is an aneurysm of the distal left internal carotid artery measuring 17 mm which extends into the sphenoid sinuses. There is also a lobular aneurysm of the cavernous and post-cavernous left internal carotid artery measuring 14 mm in diameter. The more distal branches are normal. The anterior, middle, and posterior cerebral arteries are normal. There is no evidence of major branch occlusion. IMPRESSION: Bilateral distal internal carotid artery aneurysms as above. Reviewed, Interpreted and Dictated by Mohan Licona III, MD Transcribed by Maryjane Molina Authenticated by Mohan Licona III, MD on 10/20/2021 09:22:52 AM [facility]
--- NOTE | 2021-10-20 08:19 | PC.NURSE ---
Pt returned from CT
--- NOTE | 2021-10-20 09:40 | PC.NURSE ---
Dr. Mathew is speaking with [facility]
--- NOTE | 2021-10-20 10:17 | PC.NURSE ---
MD at bedside going over POC
== END 2021-10-20 11:45 | disposition home or self-care (01) ==
PROVIDERS: Emergency Provider Student in an Organized Health Care Education/Training Program; PCP Internal Medicine Adolescent Medicine
DX: I67.1 Cerebral aneurysm, nonruptured (principal); R13.10 Dysphagia, unspecified; K59.00 Constipation, unspecified; E03.9 Hypothyroidism, unspecified; I10 Essential (primary) hypertension; J44.9 Chronic obstructive pulmonary disease, unspecified; I48.0 Paroxysmal atrial fibrillation; E78.5 Hyperlipidemia, unspecified; Z79.899 Other long term (current) drug therapy
CPT/HCPCS: 70450; 70491; 70496; 70498; 71260; 74177; 80053; 85025; 96365; 96375; 99283; Q9967

== ENCOUNTER 2021-10-24 18:26 | Emergency (ER) | payer MEDICARE, OTHER, SELFPAY ==
[2021-10-24 18:27] VITALS: BP 149/88; PULSE 103; RESP 18; TEMP 37; O2SAT 100; BMI 18.1
--- NOTE | 2021-10-24 18:30 | XR_ITS ---
PROCEDURE INFORMATION: Exam: XR Chest Exam date and time: 10/24/2021 6:30 PM Age: 76 years old Clinical indication: Cough; Additional info: Cough, SOB TECHNIQUE: Imaging protocol: XR of the chest. Views: 1 view. COMPARISON: CT CHEST W CON 10/20/2021 6:16 AM FINDINGS: Lungs: Hyperinflation. Minimal left upper lobe opacity. Pleural spaces: Unremarkable. No pleural effusion. No pneumothorax. Heart/Mediastinum: Unremarkable. No cardiomegaly. Bones/joints: No acute findings. IMPRESSION: Possible left upper lobe atelectasis. Hyperinflation consistent with COPD.
--- NOTE | 2021-10-24 18:50 | ECG_ITS ---
APPROVED REPORT Exam: Resting ECG HR:105 bpm ECG Measurements Heart Rate 105 AXES KS 202 P 91 QRSd 113 QRS 69 QT 345 T 83 QTc 406 Conclusion SINUS TACHYCARDIA PROBABLE INFERIOR MYOCARDIAL INFARCTION , OLD [35 ms Q WAVE IN II/aVF] PROBABLE ANTEROLATERAL MYOCARDIAL changes - old [35 ms Q WAVE IN I/aVL/V3-V6] ABNORMAL ECG UNCONFIRMED REPORT Electronically signed by : Wilder Pantoja MD 10/24/2021 20:32:51
--- NOTE | 2021-10-24 18:51 | HMH.EDGENADL ---
ED Disposition Clinical Impression: Schatzki's ring Dysphagia Qualifiers: Dysphagia type: esophageal phase Qualified Code(s): R13.19 - Other dysphagia Disposition: Home, Self-Care Condition on Discharge: Fair Instructions: DI for Esophageal Dysphagia Additional Instructions: You have been evaluated for difficulty swallowing. It is likely that your current problem is similar to last year, when you needed a dilation by GI. Please report for your barium swallow on Sunday as scheduled. Call your primary care doctor and Dr. Morillo for urgent follow-up. Return to the emergency department at once for any new or worsening symptoms. Referrals: Provider,MD Yany [Referring] - Ric Morillo MD [Staff Physician] - Time of Disposition: 20:30 - Critical Care Critical Care Time: No Attestation: On 10/24/21, the high probability of a clinically significant, sudden or life threatening deterioration of the following system(s) required my full and direct attention, intervention and personal management. The time I documented below is in addition to time spent performing reported procedures but includes the following listed in this critical care notation. Medical Decision Making - Medical Records Medical records reviewed: Yes: I reviewed the patient's medical records. MR Comment: Sandra Swallow 04/2021. IMPRESSION: Small hiatal hernia with constricting Schatzki's ring. Small traction diverticulum in the mid esophagus - Adrian Inquiry Pt receiving controlled substance: No Vital Signs: 10/24/21 18:27 Temperature 98.6 F Temperature Source Oral Pulse Rate [Left Radial] 103 H Respiratory Rate 18 Blood Pressure [Right Arm] 149/88 H Blood Pressure Mean [Right Arm] 108 Blood Pressure Source [Right Arm] Automatic Cuff Blood Pressure Position [Right Arm] Sitting 02 Sat by Pulse Oximetry 100 Oxygen Delivery Method Room Air - Lab Data Lab Results 10/24/21 18:56: WBC 5.1, RBC 4.94, Hgb 14.0 L, Hct 43.0, MCV 87.0, MCH 28.4, MCHC 32.7, RDW 14.2, Plt Count 226, MPV 8.6, Neut % (Auto) 75.9, Lymph % (Auto) 16.1, Davis % (Auto) 5.3, Eos % (Auto) 1.8, Baso % (Auto) 0.8, Neut # (Auto) 3.9, Lymph # (Auto) 0.8, Davis # (Auto) 0.3, Eos # (Auto) 0.1, Baso # (Auto) 0.0 10/24/21 18:56: Sodium 134 L, Potassium 4.2, Chloride 98, Carbon Dioxide 26, Anion Gap 14.2, BUN 18, Creatinine 1.00, Estimated Creat Clear 58, Estimated GFR 73, Est GFR ( Amer) 88, Glucose 87, Calcium 9.6, Total Bilirubin 1.1, AST 50, ALT 18, Alkaline Phosphatase 132 H, Total Protein 7.8, Albumin 4.2, Globulin 3.6 H, Albumin/Globulin Ratio 1.2, Lipase 67 Result diagrams: 10/24/21 18:56 10/24/21 18:56 Orders (Tests/Meds): ED MEDICATIONS Discontinued Medications Generic Name Dose Route Start Last Admin Trade Name Freq PRN Reason Stop Dose Admin Sodium Chloride 500 ml 10/24/21 18:31 10/24/21 19:00 Sodium Chloride 0.9% 500ml Bag IV 10/24/21 18:32 500 ml ONCE ONE Administration ORDERS Category Date Time Status Rapid PCR Covid and Flu A/B Stat Lab 10/24/21 19:45 Ordered Medical Decision Narrative: In summary this is a 76-year-old male presenting to the emergency department with anorexia and difficulty swallowing. Patient clinically stable on arrival. Tachycardic to 103. Other vital signs stable. I reviewed his work-up from 4 days ago. Do not believe that additional imaging is indicated at this time. Will obtain screening laboratory work including CBC, CMP, lipase, EKG, chest x-ray Initial laboratory results are reassuring. No abnormality of glucose or electrolytes. BUN is 4.2. Does not appear to be malnourished at this time. Chest x-ray shows no acute finding. I personally reviewed patient's medical record including his barium swallow from April 2021 as well as the subsequent EGD performed by Dr. Morillo. Findings were remarkable for a Schatzki ring. This was dilated. Dr. Morillo had recommended the patient not b
[2021-10-24 19:05] LABS: Basophils % 0.8 % (0.1-2.0); Eosinophils # 0.1 K/mm3 (0.0-0.4); Eosinophils % 1.8 % (0.1-12.0); Lymphocytes # 0.8 K/mm3 (0.7-4.5); Lymphocytes % 16.1 % (10-50); Mean Corpuscular HGB Conc 32.7 g/dL (31.8-35.4); Mean Corpuscular Hemoglobin 28.4 pg (27.0-31.2); Mean Platelet Volume 8.6 fl (7.4-10.4); Monocytes # 0.3 K/mm3 (0.1-1.0); Monocytes % 5.3 % (1.7-9.3); Neutrophils # 3.9 K/mm3 (1.8-7.8); Neutrophils % 75.9 % (37.0-80.0); Platelet Count 226 K/mm3 (142-424); Red Blood Count 4.94 M/mm3 (4.60-6.20); Red Cell Distribution Width 14.2 % (11.5-17.5); White Blood Count 5.1 K/mm3 (4.8-10.8)
[2021-10-24 19:11] LABS: Chloride 98 mmol/L (98-107)
[2021-10-24 19:12] LABS: Potassium 4.2 mmoL/L (3.5-5.1); Sodium 134 mmol/L (136-145)
[2021-10-24 19:14] LABS: Alanine Aminotransferase 18 U/L (12-78); Alkaline Phosphatase 132 U/L (38-126); Anion Gap 14.2 mEq/L (5-15); Aspartate Amino Transferase 50 U/L (17-59); Bilirubin,Total 1.1 mg/dl (0.2-1.3); Blood Urea Nitrogen 18 mg/dl (9-20); Carbon Dioxide 26 mmol/L (22.0-30.0); Creatinine Clearance Estimated 58 mL/min (50-200); Estimated Glomerular Filt Rate 73 ml/min (>60); GFR (African American) 88 ML/MIN (>60); Lipase 67 U/L (23-300)
[2021-10-24 19:15] LABS: Albumin Level 4.2 g/dl (3.5-5.0); Albumin/Globulin Ratio 1.2 (1.1-1.8); Calcium 9.6 mg/dl (8.4-10.2); Globulin 3.6 g/dL (1.3-3.2); Glucose 87 mg/dl (74-100); Total Protein,Serum 7.8 g/dl (6.3-8.2)
[2021-10-24 20:59] VITALS: BP 156/79; PULSE 90; RESP 16; TEMP 37; O2SAT 100
== END 2021-10-24 21:15 | disposition home or self-care (01) ==
PROVIDERS: Emergency Provider Emergency Medicine; PCP Internal Medicine Adolescent Medicine
DX: K22.2 Esophageal obstruction (principal); R13.19 Other dysphagia; I10 Essential (primary) hypertension; E03.9 Hypothyroidism, unspecified; E78.5 Hyperlipidemia, unspecified; I48.0 Paroxysmal atrial fibrillation; J44.9 Chronic obstructive pulmonary disease, unspecified; Z79.899 Other long term (current) drug therapy
CPT/HCPCS: 71045; 80053; 83690; 85025; 93005; 99283

== ENCOUNTER → 2021-10-26 09:39 | Outpatient (CLI) | payer MEDICARE, OTHER, SELFPAY ==
--- NOTE | 2021-10-26 09:42 | MR_ITS ---
FINAL REPORT CLINICAL HISTORY: DYSPHAGIA,UNSPECIFIED TYPE, BRAIN MASS, ABNORMAL CT 10-20-21. STARTED WITH LEFT SIDE FACIAL NUMBNESS LAST WEEK. COMPARISON: CT of the Head and CTA of the Head dated 10/20/21 FINDINGS: Multiplanar MR imaging of the brain was performed without contrast. There is age-appropriate atrophy. There are scattered foci of increased T2 signal in the cerebral white matter that have a nonspecific appearance but likely represent moderate chronic ischemic/gliotic changes. There is no evidence of intracranial hemorrhage. No abnormal ventricular dilatation is identified. No abnormal extra-axial fluid collection is seen. No abnormality is seen on the diffusion weighted images. The posterior fossa and brainstem are unremarkable. There is aneurysmal dilatation of the distal carotid arteries. This was better visualized on the CTA of the head dated October 20, 2021. There is mild mucosal thickening of the ethmoids and opacification of the mastoid air cells. IMPRESSION: Age-appropriate atrophy and moderate chronic ischemic/gliotic changes. Aneursymal dilatation of the bilateral distal carotid arteries was better visualized on recent CTA. Reviewed, Interpreted and Dictated by Mohan Licona III, MD Transcribed by SUSANA Ndiaye Authenticated by Mohan Licona III, MD on 10/26/2021 11:45:06 AM [facility]
--- NOTE | 2021-10-26 10:29 | FL_ITS ---
FINAL REPORT CLINICAL HISTORY: modified barium swallow// fluro time 54 seconds FINDINGS: MODIFIED BARIUM SWALLOW History: Dysphagia FINDINGS: Fluoroscopy was provided for the speech pathologist to evaluate the swallowing mechanism. The patient was given several different consistencies of barium while the swallow was visualized fluoroscopically. The report of the speech pathologist should be consulted prior to making dietary decisions. FLUOROSCOPY TIME:54 seconds IMPRESSION: Modified barium swallow under fluoroscopic guidance. Please see the report of the speech pathologist for Dietary recommendations. Films reviewed , interpreted and dictated by Dr. Licona Transcribed by Maninder Galan PA-C. Reviewed, Interpreted and Dictated by Mohan Licona III, MD Transcribed by SUSANA Mason Authenticated by Mohan Licona III, MD on 10/26/2021 12:27:20 PM [facility]
--- NOTE | 2021-10-26 11:53 | HMH.SLMBS2 ---
Speech & Language Evaluation Speech/Language Mod Barium Swallow Start: 10/26/21 11:19 Freq: once Status: Complete Protocol: Document 10/26/21 11:19 KARSTEN (Rec: 10/26/21 11:53 KARSTEN [id number]) General Information General Current Food Consistancy Regular,Thin Liquids Dentition Edentulous Oxygen Status Room Air Facial Symmetry Symmetrical Ability to Follow Directions Fair Communication Ability Severe Impairment MBS Recommendations Diet Dietary Recommendations NPO Referrals/Other Recommended Referrals Alternate Feeding Method Other Recommendations ST will contact PCP to discuss results and possible alternate feeding method. Mod Barium Swallow Impressions Summary and Impressions Oral Phase Impression Moderate Impairment Oral Phase Summary Tongue pumping noted with all consistencies trialed. Pharyngeal Phase Impression Severe Impairment Pharyngeal Phase Summary Gross aspiration of all consisitencies trialed. Penetration before the swallow with thin liquids, resulting in aspiration during the swallow. Pt continued to aspirate on moderately severe residue in the pyriform sinuses. Penetration after and eventual aspiration after the swallow noted with nectar and honey thick liquids. Patient was cued to cough to clear aspirated material in the airway, but he was unable to do so. He was also cued to swallow to reduce residue, which he was unable to complete and residue built up in the pyriform sinuses over the course of the study. Swallow was delayed due to severely generalized weakness and mistiming of structures. Minimal epiglottic and hyolaryngeal movement noted on the study. Due to severe pharyngeal dysphagia, aspiration of all consistencies is inevitable. Speech/Language MBS Assessment/Goals/Plan Assessment Date of Evaluation: 10/26/21 Evaluation Type
== END ==
PROVIDERS: PCP Internal Medicine Adolescent Medicine; Visit Provider Internal Medicine Adolescent Medicine
DX: R13.10 Dysphagia, unspecified (principal); G93.89 Other specified disorders of brain
CPT/HCPCS: 70371; 70551; 92611

== ENCOUNTER 2021-10-27 13:55 | Observation (INO) | payer MEDICARE, OTHER, SELFPAY ==
--- NOTE | 2021-10-27 12:53 | HMH.PHAINT ---
MEDICATION RECONCILIATION COMPLETED ON PATIENT USING EXTERNAL FILL HISTORY FROM PHARMACY AND LIST FROM PREVIOUS ER VISIT. -GIOVANI JEAND
--- NOTE | 2021-10-27 13:24 | HMH.GSCON ---
*Admission Date: 10/27/21 *Reason for consult:: Nutrition and hydration problem *History of present illness: Patient is a 76-year-old male who is very hard of hearing who presented to the emergency department on 10/20/2021 with dysphagia and constipation for several days. At that time he underwent thorough work-up including abdominopelvic CT scan, chest CT scan, soft tissue CT scan of the neck, head CT scan, head CT angiogram, neck CT angiogram. It was reported that he had bilateral internal carotid artery aneurysms. He was seen back in the emergency department on 10/24/2021 with anorexia and dysphagia and again was able to be managed as an outpatient. Patient underwent modified barium swallow on 10/26/2021 with speech pathology assessment. He was found to have gross aspiration of all consistencies with severe impairment and high aspiration risk. It was recommended he undergo alternate feeding method. He was seen in his primary care provider's office and arrangements were made for direct admission for hydration and gastrostomy tube placement. Of note, the patient had barium swallow and EGD by Dr. Morillo a few months ago on 06/13/2021. 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 Review of Systems - Review of Systems Review of systems:: pertinent systems reviewed and negative unless documented below [facility] History Medical History: Reports:: Atrial Fibrillation, Chronic Obstructive Pulmonary Disease (COPD), Hyperlipidemia, Hypertension Denies:: Cancer, Diabetes Mellitus Type 1, Diabetes Mellitus Type 2, Internal Pacemaker, MRSA *Have you ever received a pneumonia vaccine?: No *Have you received a flu vaccine this season?: Yes Other Medical History: Reports: Hypothyroidism Other Surgeries: Yes: Colonoscopy, Other. No: Pacemaker Amputation: No - *Social History Smoking Status: Former smoker Tobacco Type: cigarettes Alcohol Intake: never Substance Use Type: denies use *Occupational Status:: retired Housing: house Household Members: spouse *Travel in the last 8 weeks: None Family Hx:: No significant family history Meds Home Medications Medication Instructions Recorded Confirmed Type Levothyroxine Sodium 88 mcg PO DAILY 04/16/19 10/27/21 History [Levothyroxine 88mcg (0.088mg) Tab] dilTIAZem HCL [Diltiazem 24Hr ER] 240 mg PO DAILY 08/06/19 10/27/21 History Buspirone HCl [Buspar 10mg 10 mg PO BIDP PRN 06/09/21 10/27/21 History tablet] Pravastatin Sodium [Pravachol 20mg 20 mg PO HS 06/09/21 10/27/21 History Tablet] polyethylene glycoL 3350 [Miralax 17 gm PO DAILYP PRN #1 packet 10/20/21 10/27/21 Rx 17gm Packet] Sennosides/Docusate Sodium 1 each PO BID 10/27/21 10/27/21 History [Docusate Sodium-Senna Tablet] hydroCHLOROthiazide 12.5 mg PO DAILY 10/27/21 10/27/21 History [Hydrochlorothiazide 12.5mg Tab] Allergies Allergy/AdvReac Type Severity Reaction Status Date / Time No Known Allergies Allergy Verified 06/09/21 13:04 Exam - Constitutional no acute distress, cachectic, chronically ill appearing - *Routine HEENT Exam Head: Present: normocephalic Eye: Present: EOMI, PERRL ENT: Present: mucous membranes moist - *Routine Neck Exam Present: supple. Absent: lymphadenopathy - *Routine Respiratory Exam Absent: accessory muscle use - *Routine Cardiovascular Exam Present: RRR - *Routine Abdominal Exam Present: soft, normoactive bowel sounds. Absent: tenderness - *Routine Extremities Exam Absent: cyanosis, clubbing, edema - *Routine Skin Exam Present: warm. Absent: rash - *Routine Neurological Exam Present: alert Assessment and Plan - Assessment and plan all Dx Assessment and Plan for all problems:: Plan for percutaneous endoscopic gastrostomy tube placement tomorro
--- NOTE | 2021-10-27 13:45 | ECG_ITS ---
APPROVED REPORT Exam: Resting ECG HR:83 bpm ECG Measurements Heart Rate 83 AXES MD 174 P 84 QRSd 115 QRS 76 QT 381 T 72 QTc 420 Conclusion SINUS RHYTHM Late r wave progression Non-significant q waves in II and III and avf ABNORMAL ECG UNCONFIRMED REPORT Electronically signed by : Wilder Pantoja MD 11/02/2021 21:14:27
[2021-10-27 14:47] VITALS: BP 129/71; PULSE 100; RESP 18; TEMP 36.4; O2SAT 94; BMI 17.0
[2021-10-27 15:17] VITALS: O2SAT 95
[2021-10-27 15:36] LABS: Basophils % 0.7 % (0.1-2.0); Eosinophils # 0.1 K/mm3 (0.0-0.4); Eosinophils % 1.6 % (0.1-12.0); Hematocrit 45.4 % (42.0-52.0); Hemoglobin 14.6 g/dL (14.1-18.0); Lymphocytes # 0.8 K/mm3 (0.7-4.5); Lymphocytes % 16.4 % (10-50); Mean Corpuscular HGB Conc 32.1 g/dL (31.8-35.4); Mean Corpuscular Hemoglobin 28.3 pg (27.0-31.2); Mean Corpuscular Volume 88.4 fl (80-94); Mean Platelet Volume 7.5 fl (7.4-10.4); Monocytes # 0.3 K/mm3 (0.1-1.0); Monocytes % 5.2 % (1.7-9.3); Neutrophils # 3.6 K/mm3 (1.8-7.8); Neutrophils % 76.1 % (37.0-80.0); Platelet Count 237 K/mm3 (142-424); Red Blood Count 5.14 M/mm3 (4.60-6.20); Red Cell Distribution Width 14.5 % (11.5-17.5); White Blood Count 4.7 K/mm3 (4.8-10.8)
[2021-10-27 15:44] LABS: Chloride 103 mmol/L (98-107); Potassium 3.9 mmoL/L (3.5-5.1); Sodium 140 mmol/L (136-145)
[2021-10-27 15:47] LABS: Anion Gap 15.9 mEq/L (5-15); Blood Urea Nitrogen 30 mg/dl (9-20); Calcium 8.8 mg/dl (8.4-10.2); Carbon Dioxide 25 mmol/L (22.0-30.0); Creatinine Clearance Estimated 46 mL/min (50-200); Estimated Glomerular Filt Rate 59 ml/min (>60); GFR (African American) 71 ML/MIN (>60); Glucose 80 mg/dl (74-100); Magnesium 2.1 mg/dl (1.6-2.3)
[2021-10-27 16:00] VITALS: BP 132/72; PULSE 94; RESP 16; TEMP 36.8; O2SAT 99
--- NOTE | 2021-10-27 17:07 | HMH.HP ---
*Admission Date: 10/27/21 *Chief complaint: Weakness/dehydration/inability to take p.o. *History of present illness: 76-year-old male who has enjoyed fairly good functional status until about 2 years ago when he began to have significant falls, gait instability, and was diagnosed with severe anxiety and was placed on BuSpar and Lexapro which has helped quite a bit. He regained quite a bit of function but unfortunately over the past 4 to 5 months has begun to lose his ability to walk, has had increased headaches, increased anxiety symptoms and has had frequent falls. Has been worked up in the ER several times, and a couple of weeks ago CT scanning showed a soft tissue masses in the bilateral [place] area. ER physician has made an appointment with patient for [facility] neurosurgery to evaluate, and patient was scheduled by our office for an MRI which he had yesterday. Yesterday he also had a modified barium swallow because of his increasing problems with choking, swallowing and inability to eat with increasing weakness. Speech therapy called me and told me that patient failed all aspects of swallowing and was unable to tolerate any type of liquids, thin or thick, or any solids without significant, severe and repetitive aspiration. I had patient and his son come in today to discuss the issue. Apparently they have been in the ER a couple more times over the past 3 or 4 days because of weakness, labs usually are drawn and he is given a bag of fluids and sent home, but the son notes that he is not eating anything at home over the past 2 weeks and has become increasingly weak and is unable to stand. In the office he was found to be tachycardic, clinically dehydrated, very weak with inability to stand on his own and he is admitted to hospital for laboratory studies and surgical consultation for PEG tube placement given the significant swallowing issues and worsening clinical status. [facility] History I have reviewed the patient's past medical history: Yes Medical History: Reports:: Atrial Fibrillation, Chronic Obstructive Pulmonary Disease (COPD), Diabetes Mellitus Type 2, Hyperlipidemia, Hypertension, Myocardial Infarction Denies:: Cancer, Diabetes Mellitus Type 1, Internal Pacemaker, MRSA *Have you ever received a pneumonia vaccine?: No *Have you received a flu vaccine this season?: No Other Medical History: Reports: Hypothyroidism Other Surgeries: Yes: Colonoscopy, Other. No: Pacemaker Amputation: No - *Social History Last grade of school completed: High school graduate Smoking Status: Former smoker Tobacco Type: cigarettes Alcohol Intake: never Substance Use Type: denies use *Occupational Status:: retired Housing: house Household Members: children *Travel in the last 8 weeks: None Family Hx:: No significant family history Review of Systems - Review of Systems Review of systems:: pertinent systems reviewed and negative unless documented below Meds Home Medications Medication Instructions Recorded Confirmed Type Levothyroxine Sodium 88 mcg PO DAILY 04/16/19 10/27/21 History [Levothyroxine 88mcg (0.088mg) Tab] dilTIAZem HCL [Diltiazem 24Hr ER] 240 mg PO DAILY 08/06/19 10/27/21 History Buspirone HCl [Buspar 10mg 10 mg PO BIDP PRN 06/09/21 10/27/21 History tablet] Pravastatin Sodium [Pravachol 20mg 20 mg PO HS 06/09/21 10/27/21 History Tablet] polyethylene glycoL 3350 [Miralax 17 gm PO DAILYP PRN #1 packet 10/20/21 10/27/21 Rx 17gm Packet] Sennosides/Docusate Sodium 1 each PO BID 10/27/21 10/27/21 History [Docusate Sodium-Senna Tablet] hydroCHLOROthiazide 12.5 mg PO DAILY 10/27/21 10/27/21 History [Hydrochlorothiazide 12.5mg Tab] Allergies Allergy/AdvReac Type Severity Reaction Status Date / Time No Known Allergies Allergy Verified 06/09/21 13:04 Exam Vital signs and Labs for Last 24 Hours: Temp Pulse Resp BP Pulse Ox 97.6 F 100 H 18 129/71 95 10/27/21 14:47
--- NOTE | 2021-10-27 17:21 | PC.NURSE ---
AOX4 BUT VERY HARD OF HEARING. PT APPEARS TIRED AND HAS RESTED IN BED SINCE ARRIVING TO UNIT. REMAINS NPO PER MD ORDER. DENIES N/V/D ABD IS SOFT AND NON-TENDER. TOLERATING RA WITH CLEAR LUNG SOUNDS ON AUSCULTATION. HEART RATE REGULAR. NO EDEMA NOTED. USES URINAL WITH 1 ASSIST. NO BM THUS FAR. HAS NOT AMBULATED R/T WEAKNESS.
[2021-10-27 20:00] VITALS: BP 114/66; PULSE 96; RESP 20; TEMP 36.9; O2SAT 96
[2021-10-27 21:02] LABS: Influenza A, PCR Not Detected (NotDetected); Influenza B, PCR Not Detected (NotDetected)
[2021-10-27 21:21] LABS: Coronavirus 19, PCR Detected (NotDetected)
[2021-10-27 23:53] VITALS: BP 118/64; PULSE 92; RESP 18; TEMP 36.7; O2SAT 98
[2021-10-28] VITALS (24 sets, daily range): BP systolic 126–160; BP diastolic 62–81; PULSE 70–96; RESP 17–18; TEMP 36.3–37.1; O2SAT 94–100; BMI 17.1
--- NOTE | 2021-10-28 06:00 | PC.NURSE ---
Pt has rested well this shift. Pt voiced no c/o of pain or N/V. Pt has used urinal to void with 450ML output thus far in shift. Remains on room air with O2 sat >90%. Call light within reach. Pt is able to make needs known to staff.
--- NOTE | 2021-10-28 06:47 | ECG_ITS ---
APPROVED REPORT Exam: Resting ECG HR:83 bpm ECG Measurements Heart Rate 83 AXES WI 174 P 84 QRSd 115 QRS 76 QT 381 T 72 QTc 420 Conclusion SINUS RHYTHM Nonsignificant q waves noted Late r wave progression ABNORMAL ECG UNCONFIRMED REPORT Electronically signed by : Wilder Pantoja MD 10/29/2021 07:39:06
--- NOTE | 2021-10-28 07:57 | P.PN_ITS ---
[facility] Anesthesia Checklist - Patient Identification Patient Identification: Arm Band - Structural Data Admitted From: Home Planned Operative Procedure/s: PEG placement Consent for Planned Operative Procedure(s) Verified: Yes - NPO Status Verified Time NPO: 00:00 - Additional verifications Anesthesia Reactions: No - Airway Assessment C-Spine Mobility Assessed: Yes TMJ Mobility Assessed: Yes Dentition: Edentulous - Neurological Assessment Level of Consciousness: Awake Hx Seizures: No Numbness or tingling in extremities: No - Anesthesia Plan Anesthesia Risk discussed: Yes Anesthesia Plan: Verified ASA Class: III Anesthesia Type: MAC [facility] History I have reviewed the patient's past medical history: Yes Medical History: Reports:: Atrial Fibrillation, Chronic Obstructive Pulmonary Disease (COPD), Diabetes Mellitus Type 2, Hyperlipidemia, Hypertension, Myocardial Infarction Denies:: Cancer, Diabetes Mellitus Type 1, Internal Pacemaker, MRSA *Have you ever received a pneumonia vaccine?: No *Have you received a flu vaccine this season?: No Other Medical History: Reports: Hypothyroidism Anesthesia experience/problems:: None Other Surgeries: Yes: Colonoscopy, Other. No: Pacemaker Amputation: No - *Social History Last grade of school completed: High school graduate Smoking Status: Former smoker Tobacco Type: cigarettes Alcohol Intake: never Substance Use Type: denies use *Occupational Status:: retired Housing: house Household Members: children *Travel in the last 8 weeks: None Family Hx:: No significant family history
--- NOTE | 2021-10-28 10:01 | DIET.NUTRFU ---
RD spoke to son about patients PMH, patient triggers for malnutrition he has lost 30# in 30-45 days d/t unable to meet needs with oral diet. Will notify provider. He has has had multiple BMS and head CT along with brain MRI. Dx with Schatzki ring with last dilation of esophagus in August. But in September he was already having difficultly again. PEG placement scheduled today, to provide his nutritional needs. May need to see [employer] again post sx to determine if any oral diet is feasible. Currently he has COVID also, family does not feel he has demonstrated any symptoms at this time. Once medically feasible start TF of jevity 1.2 at 20ml/hr with goal rate of 55ml/hr to provide 1518kcal, 70gm protein and 1020ml free water, flush of 120ml [id number] total fluid of 1740ml/day- this will meet 100% needs to maintain. Once tolerated at home may benefit a increase to meet weight gain needs d/t low BMI. Son indicated he had family at the home with nursing hx and they felt capable of administrating TF with minimal instruction. Spoke to case managers and they will review discharge plan to determine if placement is more appropriate.
--- NOTE | 2021-10-28 10:35 | HMH.ACPN2 ---
Internal Medicine - PN: Subj *Date: 10/28/21 *Time: 20:12 Interval history: Pleasant on exam this morning. No acute distress. Afebrile. Patient asking when he is getting his G-tube placed. Denies chest pain, nausea, vomiting. Voice weak. Requires hearing aid to hear well on exam. Exam Vital signs and Labs for Last 24 Hours: Temp Pulse Resp BP Pulse Ox 97.9 F 70 18 142/70 H 100 10/28/21 08:00 10/28/21 04:00 10/28/21 08:00 10/28/21 08:00 10/28/21 08:00 Laboratory Results - last 24 hr 10/27/21 15:22: WBC 4.7 L, RBC 5.14, Hgb 14.6, Hct 45.4, MCV 88.4, MCH 28.3, MCHC 32.1, RDW 14.5, Plt Count 237, MPV 7.5, Neut % (Auto) 76.1, Lymph % (Auto) 16.4, [place] % (Auto) 5.2, Eos % (Auto) 1.6, Baso % (Auto) 0.7, Neut # (Auto) 3.6, Lymph # (Auto) 0.8, [place] # (Auto) 0.3, Eos # (Auto) 0.1, Baso # (Auto) 0.0 10/27/21 15:22: Sodium 140, Potassium 3.9, Chloride 103, Carbon Dioxide 25, Anion Gap 15.9 H, BUN 30 H D, Creatinine 1.20, Estimated Creat Clear 46, Estimated GFR 59, Est GFR ( Amer) 71, Glucose 80, Calcium 8.8, Magnesium 2.1 10/27/21 20:39: SARS-CoV-2 (PCR) Detected A, Influenza A Untype (PCR) Not detected, Influenza Type B (PCR) Not detected I & O for Last 24 hours: Intake & Output 10/25/21 10/26/21 10/27/21 10/28/21 23:59 23:59 23:59 23:59 Intake Total 75 / 75 350 / 350 Output Total 100 / 100 Balance -25 / -25 350 / 350 Weight 61.745 kg 61.75 kg Narrative: - Constitutional minimal distress, thin, cachectic - *Routine HEENT Exam Head: Present: normocephalic Eye: Present: EOMI, PERRL ENT: Present: mucous membranes dry - *Routine Neck Exam Present: supple. Absent: lymphadenopathy - *Routine Respiratory Exam Present: rhonchi - *Routine Cardiovascular Exam Present: RRR, irregularly irregular - *Routine Abdominal Exam Present: soft. Scaphoid, thin abdomen, non tender - *Routine Extremities Exam Absent: cyanosis, clubbing, edema - *Routine Skin Exam Present: dry, warm. Absent: rash - *Routine Neurological Exam Present: alert, oriented X3; Globally extremely weak, almost unable to speak because of weakness. Assessment and Plan (1) Dysphagia Status: Acute Qualifiers: Dysphagia type: esophageal phase Qualified Code(s): R13.19 - Other dysphagia Category: Medical Code(s): R13.10 - Dysphagia, unspecified (2) Mass of brain Status: Acute Category: Medical Code(s): G93.89 - Other specified disorders of brain (3) Schatzki's ring Status: Acute Category: Medical Code(s): K22.2 - Esophageal obstruction (4) Cachexia Status: Chronic Category: Medical Code(s): R64 - Cachexia (5) Severe protein-calorie malnutrition Status: Chronic Category: Medical Code(s): E43 - Unspecified severe protein-calorie malnutrition - Assessment and plan all Dx Assessment and Plan for all problems:: 76-year-old gentleman with severe malnutrition, soft tissue lesions on his brain. Has plans for further work-up and management of lesions but is unable to tolerate p.o. intake. Admitted for G-tube placement. Found to be Covid positive but is asymptomatic. Plan for G-tube placement today with surgery. We will advance tube feeds starting in 24 hours once cleared to use. Overall stable. Continues to require inpatient management.
--- NOTE | 2021-10-28 10:41 | HMH.SCOPE ---
- Procedure: Date: 10/28/21 Patient Date of :: 1945 Procedure Performed:: Placement of 20 Mohawk pull-type percutaneous endoscopic gastrostomy tube Indications:: Patient is a 76-year-old male who is very hard of hearing who presented to the emergency department on 10/20/2021 with dysphagia and constipation for several days. At that time he underwent thorough work-up including abdominopelvic CT scan, chest CT scan, soft tissue CT scan of the neck, head CT scan, head CT angiogram, neck CT angiogram. It was reported that he had bilateral internal carotid artery aneurysms. He was seen back in the emergency department on 10/24/2021 with anorexia and dysphagia and again was able to be managed as an outpatient. Patient underwent modified barium swallow on 10/26/2021 with speech pathology assessment. He was found to have gross aspiration of all consistencies with severe impairment and high aspiration risk. It was recommended he undergo alternate feeding method. He was seen in his primary care provider's office and arrangements were made for direct admission for hydration and gastrostomy tube placement. Of note, the patient had barium swallow and EGD by Dr. Morillo a few months ago on 06/13/2021. 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 He was admitted for inpatient hydration and surgical consultation for gastrostomy tube placement. Performing Provider:: Mohan Dillard MD Referring Provider:: Wilder Pantoja MD Sedation:: MAC sedation with local Procedure:: Patient was taken to endoscopy procedure room. He was maintained on the hospital bed in a supine position. Sedation was achieved with anesthesia titration of propofol. He was given preoperative intravenous cefazolin. Olympus endoscope was inserted via the oropharynx. He did have some cricopharyngeal spasm. Esophagus was cannulated. Gastroesophageal junction was encountered at approximately 43 cm from the incisors. There is minimal Schatzki's ring. Stomach was cannulated and insufflated. There is some minor linear nonerosive gastropathy. Pylorus was identified and endoscope was advanced into the duodenal bulb which appeared normal. Endoscope was withdrawn into the distal antrum of the stomach. Initially no light reflex was encountered. However as the endoscope was withdrawn to the mid body there was good light reflex. The abdomen was then prepped and draped. Local anesthetic was infiltrated at the site of the light reflex. Snare was inserted through the endoscope. Small incision was made at the site of injection. Catheter was inserted through the abdominal wall into the gastric lumen under endoscopic visualization. Loop guidewire was advanced through the catheter and grasped with the endoscopic snare. Endoscope with snare and loop guidewire was then withdrawn. 20 Mohawk pull-type percutaneous endoscopic gastrostomy tube was secured to the loop guidewire. Traction was then applied to the loop guidewire pulling the PEG tube via the oropharynx to exit the abdominal wall at the cannulation site. However initially this appeared to be at 8 cm. The endoscope was then reinserted. The bulb of the PEG tube was at the gastroesophageal junction. The additional traction was applied and the gastrostomy tube bulb appeared to be in good position in the gastric lumen. That this was at approximately the 2 cm evan on the tubing at the abdominal wall. The stomach was desufflated and the endoscope was withdrawn. The obturator was then placed on the feeding tube. Antibiotic ointment and dressing was placed at the abdominal site. Feeding tube was cut to the appropriate length. Clamp and infusion apparatus were then secured to the tube. There were no immediate complications. Findings:: Cricopharyngeal spasm Mi
--- NOTE | 2021-10-28 10:56 | P.CONPHA_ITS ---
[facility] Pharmacy VTE Monitoring - Patient Demographics Admission date: 10/27/21 Report Date: 10/28/21 Time: 10:56 Allergies/Adverse Reactions: Patient Allergies No Known Allergies Allergy (Verified 06/09/21 13:04) Height: 1.9 m Weight: 61.75 kg Patient Problems: Current Active Problems Mass of brain (Acute) Dysphagia (Acute) Schatzki's ring (Acute) - VTE Risk Labs: VTE Related Lab Results Hgb 14.6 g/dL (14.1-18.0) 10/27/21 15:22 Hct 45.4 % (42.0-52.0) 10/27/21 15:22 Plt Count 237 K/mm3 (142-424) 10/27/21 15:22 BUN 30 mg/dl (9-20) H D 10/27/21 15: Creatinine 1.20 mg/dl (0.66-1.25) 10/27/21 15:22 Estimated Creat Clear 46 mL/min (50-200) 10/27/21 15:22 VTE Score: 8 VTE Risk Level: Moderate Risk - Prophylaxis VTE Prophylaxis Ordered?: Yes Types of VTE Prophylaxis: TEDS Knee High Location of Applied Device: Bilateral Lower Extremeties
--- NOTE | 2021-10-28 13:54 | SW/DCPLANNER ---
RECEIVED REFERRAL FOR THIS PATIENT STATING HOME VS PLACEMENT.. I SPOKE WITH PATIENTS SON AND HE STATED HIS DAD WOULD BE RETURNING HOME AND HE WOULD BE STAYING WITH HIM.. HE NEEDS A HOSPITAL BED TO ASSIST WITH TURNING AND REPOSITIONING.. MAY DISCHARGE HOME IN THE AM AND BED TO BE DELIVERED LATER IN THE DAY OR IN THE AM....
--- NOTE | 2021-10-28 14:30 | PC.NURSE ---
generalized weakness noted, pt unable to turn and reposition independently, pt could benefit from hospital bed upon discharge.
--- NOTE | 2021-10-28 14:43 | DIET.NUTRFU ---
PEG placement was successful, surgeon Recommend withholding use of feeding tube for approximately 24 hours if possible. Post 24 hours may start TF recommendations, order is in place.
[2021-10-29 03:56] VITALS: BP 123/55; PULSE 87; RESP 16; TEMP 36.5; O2SAT 99
[2021-10-29 04:00] VITALS: BMI 17.6
--- NOTE | 2021-10-29 04:19 | PC.NURSE ---
Patient remains on room air. He has voiced no complaints. No acute events thus far in this RN's shift.
[2021-10-29 06:30] LABS: Basophils % 0.4 % (0.1-2.0); Eosinophils # 0.1 K/mm3 (0.0-0.4); Eosinophils % 0.7 % (0.1-12.0); Hematocrit 38.1 % (42.0-52.0); Hemoglobin 12.3 g/dL (14.1-18.0); Lymphocytes # 0.8 K/mm3 (0.7-4.5); Lymphocytes % 12.9 % (10-50); Mean Corpuscular HGB Conc 32.3 g/dL (31.8-35.4); Mean Corpuscular Hemoglobin 28.4 pg (27.0-31.2); Mean Corpuscular Volume 87.7 fl (80-94); Mean Platelet Volume 7.8 fl (7.4-10.4); Monocytes # 0.4 K/mm3 (0.1-1.0); Monocytes % 6.7 % (1.7-9.3); Neutrophils % 79.3 % (37.0-80.0); Platelet Count 165 K/mm3 (142-424); Red Blood Count 4.34 M/mm3 (4.60-6.20); Red Cell Distribution Width 14.6 % (11.5-17.5); White Blood Count 6.3 K/mm3 (4.8-10.8)
--- NOTE | 2021-10-29 06:44 | HMH.ACPN2 ---
Internal Medicine - PN: Subj *Date: 10/29/21 *Time: 06:44 Interval history: Mr. Arriola did well overnight. Mild pain from surgical intervention/G-tube placement. No emesis, shortness of breath, chest pain. No increased cough or fever. Pleasant this morning on exam. Heart rate well controlled with appropriate blood pressure. Exam Vital signs and Labs for Last 24 Hours: Temp Pulse Resp BP Pulse Ox 97.7 F 87 16 123/55 L 99 10/29/21 03:56 10/29/21 03:56 10/29/21 03:56 10/29/21 03:56 10/29/21 03:56 Laboratory Results - last 24 hr 10/29/21 06:02: WBC 6.3 D, RBC 4.34 L, Hgb 12.3 L, Hct 38.1 L, MCV 87.7, MCH 28.4, MCHC 32.3, RDW 14.6, Plt Count 165 D, MPV 7.8, Neut % (Auto) 79.3, Lymph % (Auto) 12.9, [place] % (Auto) 6.7, Eos % (Auto) 0.7, Baso % (Auto) 0.4, Neut # (Auto) 5.0, Lymph # (Auto) 0.8, [place] # (Auto) 0.4, Eos # (Auto) 0.1, Baso # (Auto) 0.0 I & O for Last 24 hours: Intake & Output 10/26/21 10/27/21 10/28/21 10/29/21 23:59 23:59 23:59 23:59 Intake Total 75 / 75 735 / 735 Output Total 100 / 100 550 / 550 Balance -25 / -25 185 / 185 Weight 61.745 kg 61.75 kg 63.503 kg Narrative: - Constitutional minimal distress, thin, cachectic - *Routine HEENT Exam Head: Present: normocephalic Eye: Present: EOMI, PERRL ENT: Present: mucous membranes dry - *Routine Neck Exam Present: supple. Absent: lymphadenopathy - *Routine Respiratory Exam Present: rhonchi - *Routine Cardiovascular Exam Present: RRR, irregularly irregular - *Routine Abdominal Exam Present: soft. Scaphoid, thin abdomen, tender at sight of G-tube. CDI - *Routine Extremities Exam Absent: cyanosis, clubbing, edema - *Routine Skin Exam Present: dry, warm. Absent: rash - *Routine Neurological Exam Present: alert, oriented X3; Globally extremely weak, almost unable to speak because of weakness. Assessment and Plan (1) Dysphagia Status: Acute Qualifiers: Dysphagia type: esophageal phase Qualified Code(s): R13.19 - Other dysphagia Category: Medical Code(s): R13.10 - Dysphagia, unspecified (2) Mass of brain Status: Acute Category: Medical Code(s): G93.89 - Other specified disorders of brain (3) Schatzki's ring Status: Acute Category: Medical Code(s): K22.2 - Esophageal obstruction (4) Cachexia Status: Chronic Category: Medical Code(s): R64 - Cachexia (5) Severe protein-calorie malnutrition Status: Chronic Category: Medical Code(s): E43 - Unspecified severe protein-calorie malnutrition - Assessment and plan all Dx Assessment and Plan for all problems:: 76-year-old gentleman with severe malnutrition, soft tissue lesion on his brain, hypothyroid and cachexia. Admitted for intervention to assist with nutritional supplementation while he pursues work-up for his soft tissue mass in his brain. Surgery consulted, appreciate their recommendations. G-tube placed yesterday. If cleared by surgery, will proceed with initiating tube feeds today (24 hours after placement of G-tube). -Resume levothyroxine today for hypothyroid per tube. -Holding diltiazem unless develops tachyarrhythmia or hypertension. -History of diabetes per chart, will monitor closely. If develops hyperglycemia after initiating tube feeds will start sliding scale insulin. Fingersticks for now to monitor glucose. Covid -Positive on evaluation by PCR. Patient is asymptomatic. Continue to monitor for any signs or symptoms. No indication for treatment at this time. Full code Overall stable. Continues to require inpatient management.
[2021-10-29 06:45] LABS: Chloride 109 mmol/L (98-107); Sodium 143 mmol/L (136-145)
[2021-10-29 06:46] LABS: Potassium 4.2 mmoL/L (3.5-5.1)
[2021-10-29 06:48] LABS: Alanine Aminotransferase 13 U/L (12-78); Albumin Level 3.5 g/dl (3.5-5.0); Albumin/Globulin Ratio 1.2 (1.1-1.8); Alkaline Phosphatase 103 U/L (38-126); Anion Gap 11.2 mEq/L (5-15); Aspartate Amino Transferase 28 U/L (17-59); Bilirubin,Total 0.7 mg/dl (0.2-1.3); Blood Urea Nitrogen 21 mg/dl (9-20); Calcium 8.1 mg/dl (8.4-10.2); Carbon Dioxide 27 mmol/L (22.0-30.0); Creatinine Clearance Estimated 56 mL/min (50-200); Estimated Glomerular Filt Rate 73 ml/min (>60); GFR (African American) 88 ML/MIN (>60); Globulin 2.9 g/dL (1.3-3.2); Glucose 82 mg/dl (74-100); Total Protein,Serum 6.4 g/dl (6.3-8.2)
[2021-10-29 08:00] VITALS: BP 111/62; PULSE 82; RESP 18; TEMP 36.8; O2SAT 99
[2021-10-29 08:39] LABS: POC Glucose,Bedside 80 (70-110)
--- NOTE | 2021-10-29 10:16 | PC.NURSE ---
Ok to use gtube per MD Dillard
--- NOTE | 2021-10-29 10:32 | P.PN_ITS ---
Subjective Narrative: Patient without issues overnight Progress Note: A&P (1) Dysphagia Status: Acute (2) Mass of brain Status: Acute (3) Schatzki's ring Status: Acute (4) Cachexia Status: Chronic (5) Severe protein-calorie malnutrition Status: Chronic Assessment and Plan for All Diagnoses:: Okay to start using the PEG tube. Exam Vital signs and Labs for Last 24 Hours: Temp Pulse Resp BP Pulse Ox 98.3 F 82 18 111/62 99 10/29/21 08:00 10/29/21 08:00 10/29/21 08:00 10/29/21 08:00 10/29/21 08:00 Laboratory Results - last 24 hr 10/29/21 06:02: WBC 6.3 D, RBC 4.34 L, Hgb 12.3 L, Hct 38.1 L, MCV 87.7, MCH 28.4, MCHC 32.3, RDW 14.6, Plt Count 165 D, MPV 7.8, Neut % (Auto) 79.3, Lymph % (Auto) 12.9, [place] % (Auto) 6.7, Eos % (Auto) 0.7, Baso % (Auto) 0.4, Neut # (Auto) 5.0, Lymph # (Auto) 0.8, [place] # (Auto) 0.4, Eos # (Auto) 0.1, Baso # (Auto) 0.0 10/29/21 06:02: Sodium 143, Potassium 4.2, Chloride 109 H, Carbon Dioxide 27, Anion Gap 11.2, BUN 21 H D, Creatinine 1.00, Estimated Creat Clear 56, Estimated GFR 73, Est GFR ( Amer) 88 D, Glucose 82, Calcium 8.1 L, Total Bilirubin 0.7, AST 28, ALT 13, Alkaline Phosphatase 103, Total Protein 6.4, Albumin 3.5, Globulin 2.9, Albumin/Globulin Ratio 1.2 10/29/21 08:12: POC Glucose 80 I & O for Last 24 hours: Intake & Output 10/26/21 10/27/21 10/28/21 10/29/21 11:59 11:59 11:59 11:59 Intake Total 425 / 425 385 / 385 Output Total 100 / 100 550 / 550 Balance 325 / 325 -165 / -165 Weight 136 lb 2.167 oz 140 lb - Constitutional no acute distress
[2021-10-29 11:35] LABS: POC Glucose,Bedside 87 (70-110)
[2021-10-29 12:00] VITALS: BP 114/57; PULSE 81; RESP 18; TEMP 36.7; O2SAT 99
[2021-10-29 15:05] VITALS: BP 187/92; PULSE 77; RESP 16; TEMP 36.9; O2SAT 99
[2021-10-29 20:00] VITALS: BP 142/71; PULSE 77; RESP 20; TEMP 36.7; O2SAT 97
[2021-10-29 20:46] LABS: POC Glucose,Bedside 102 (70-110)
[2021-10-29 22:19] LABS: POC Glucose,Bedside 95 (70-110)
[2021-10-30] VITALS (7 sets, daily range): BP systolic 115–153; BP diastolic 61–71; PULSE 69–78; RESP 16–22; TEMP 36.4–36.8; O2SAT 98–99; BMI 17.8
[2021-10-30 04:20] LABS: POC Glucose,Bedside 115 (70-110)
[2021-10-30 06:29] LABS: Basophils % 0.7 % (0.1-2.0); Eosinophils # 0.1 K/mm3 (0.0-0.4); Hematocrit 36.8 % (42.0-52.0); Lymphocytes # 0.7 K/mm3 (0.7-4.5); Lymphocytes % 19.5 % (10-50); Mean Corpuscular HGB Conc 32.6 g/dL (31.8-35.4); Mean Corpuscular Hemoglobin 28.8 pg (27.0-31.2); Mean Corpuscular Volume 88.3 fl (80-94); Mean Platelet Volume 7.7 fl (7.4-10.4); Monocytes # 0.2 K/mm3 (0.1-1.0); Monocytes % 4.8 % (1.7-9.3); Neutrophils # 2.7 K/mm3 (1.8-7.8); Platelet Count 143 K/mm3 (142-424); Red Blood Count 4.17 M/mm3 (4.60-6.20); Red Cell Distribution Width 14.8 % (11.5-17.5); White Blood Count 3.7 K/mm3 (4.8-10.8)
[2021-10-30 06:32] LABS: Chloride 106 mmol/L (98-107); Potassium 3.7 mmoL/L (3.5-5.1); Sodium 137 mmol/L (136-145)
[2021-10-30 06:35] LABS: Blood Urea Nitrogen 17 mg/dl (9-20); Creatinine Clearance Estimated 57 mL/min (50-200); Estimated Glomerular Filt Rate 94 ml/min (>60); GFR (African American) 114 ML/MIN (>60)
[2021-10-30 06:36] LABS: Anion Gap 4.7 mEq/L (5-15); Calcium 7.8 mg/dl (8.4-10.2); Carbon Dioxide 30 mmol/L (22.0-30.0); Glucose 91 mg/dl (74-100)
[2021-10-30 07:10] LABS: POC Glucose,Bedside 107 (70-110)
--- NOTE | 2021-10-30 09:45 | HMH.DCSUM ---
General - General Admission date:: 10/27/21 Discharge date: 10/30/21 HPI HPI: 76-year-old male who has enjoyed fairly good functional status until about 2 years ago when he began to have significant falls, gait instability, and was diagnosed with severe anxiety and was placed on BuSpar and Lexapro which has helped quite a bit. He regained quite a bit of function but unfortunately over the past 4 to 5 months has begun to lose his ability to walk, has had increased headaches, increased anxiety symptoms and has had frequent falls. Has been worked up in the ER several times, and a couple of weeks ago CT scanning showed a soft tissue masses in the bilateral [place] area. ER physician has made an appointment with patient for [facility] neurosurgery to evaluate, and patient was scheduled by our office for an MRI which he had yesterday. Yesterday he also had a modified barium swallow because of his increasing problems with choking, swallowing and inability to eat with increasing weakness. Speech therapy called me and told me that patient failed all aspects of swallowing and was unable to tolerate any type of liquids, thin or thick, or any solids without significant, severe and repetitive aspiration. I had patient and his son come in today to discuss the issue. Apparently they have been in the ER a couple more times over the past 3 or 4 days because of weakness, labs usually are drawn and he is given a bag of fluids and sent home, but the son notes that he is not eating anything at home over the past 2 weeks and has become increasingly weak and is unable to stand. In the office he was found to be tachycardic, clinically dehydrated, very weak with inability to stand on his own and he is admitted to hospital for laboratory studies and surgical consultation for PEG tube placement given the significant swallowing issues and worsening clinical status. Objective Vital signs: Temp Pulse Resp BP Pulse Ox 97.6 F 78 16 115/66 98 10/30/21 07:44 10/30/21 07:44 10/30/21 07:44 10/30/21 07:44 10/30/21 07:44 Narrative: - Constitutional minimal distress, thin, cachectic - *Routine HEENT Exam Head: Present: normocephalic Eye: Present: EOMI, PERRL ENT: Present: mucous membranes dry - *Routine Neck Exam Present: supple. Absent: lymphadenopathy - *Routine Respiratory Exam Present: rhonchi - *Routine Cardiovascular Exam Present: RRR, irregularly irregular - *Routine Abdominal Exam Present: soft. Scaphoid, thin abdomen, tender at sight of G-tube. CDI - *Routine Extremities Exam Absent: cyanosis, clubbing, edema - *Routine Skin Exam Present: dry, warm. Absent: rash - *Routine Neurological Exam Present: alert, oriented X3; Globally extremely weak, almost unable to speak because of weakness. Results Labs on day of discharge: Labs from last 24 hours 10/30/21 10/30/21 10/30/21 06:11 05:59 05:59 WBC 3.7 L D RBC 4.17 L Hgb 12.0 L Hct 36.8 L MCV 88.3 MCH 28.8 MCHC 32.6 RDW 14.8 Plt Count 143 MPV 7.7 Neut % (Auto) 73.0 Lymph % (Auto) 19.5 [place] % (Auto) 4.8 Eos % (Auto) 2.0 Baso % (Auto) 0.7 Neut # (Auto) 2.7 Lymph # (Auto) 0.7 [place] # (Auto) 0.2 Eos # (Auto) 0.1 Baso # (Auto) 0.0 Sodium 137 Potassium 3.7 Chloride 106 Carbon Dioxide 30 Anion Gap 4.7 L BUN 17 Creatinine 0.80 Estimated Creat Clear 57 Estimated GFR 94 Est GFR ( Amer) 114 D Glucose 91 POC Glucose 107 Calcium 7.8 L 10/30/21 10/29/21 10/29/21 01:30 20:38 17:16 WBC RBC Hgb Hct MCV MCH MCHC RDW Plt Count MPV Neut % (Auto) Lymph % (Auto) [place] % (Auto) Eos % (Auto) Baso % (Auto) Neut # (Auto) Lymph # (Auto) [place] # (Auto) Eos # (Auto) Baso # (Auto) Sodium Potassium Chloride Carbon Dioxide Anion Gap BUN Creatinin
--- NOTE | 2021-10-30 11:59 | HMH.ACPN2 ---
Internal Medicine - PN: Subj *Date: 10/30/21 *Time: 15:30 Interval history: No acute events overnight. Remains afebrile. Tolerating tube feeds. Able to ramp up to goal of 55 an hour. No nausea or vomiting. Has not had a bowel movement yet. Hemodynamically stable. No hypertension or tachycardia. No shortness of breath or oxygen requirement. Exam Vital signs and Labs for Last 24 Hours: Temp Pulse Resp BP Pulse Ox 98.3 F 72 16 153/71 H 98 10/30/21 11:26 10/30/21 11:26 10/30/21 11:26 10/30/21 11:26 10/30/21 11:26 Laboratory Results - last 24 hr 10/29/21 17:16: POC Glucose 95 10/29/21 20:38: POC Glucose 102 10/30/21 01:30: POC Glucose 115 H 10/30/21 05:59: WBC 3.7 L D, RBC 4.17 L, Hgb 12.0 L, Hct 36.8 L, MCV 88.3, MCH 28.8, MCHC 32.6, RDW 14.8, Plt Count 143, MPV 7.7, Neut % (Auto) 73.0, Lymph % (Auto) 19.5, [place] % (Auto) 4.8, Eos % (Auto) 2.0, Baso % (Auto) 0.7, Neut # (Auto) 2.7, Lymph # (Auto) 0.7, [place] # (Auto) 0.2, Eos # (Auto) 0.1, Baso # (Auto) 0.0 10/30/21 05:59: Sodium 137, Potassium 3.7, Chloride 106, Carbon Dioxide 30, Anion Gap 4.7 L, BUN 17, Creatinine 0.80, Estimated Creat Clear 57, Estimated GFR 94, Est GFR ( Amer) 114 D, Glucose 91, Calcium 7.8 L 10/30/21 06:11: POC Glucose 107 I & O for Last 24 hours: Intake & Output 10/27/21 10/28/21 10/29/21 10/30/21 23:59 23:59 23:59 23:59 Intake Total 75 / 75 735 / 735 120 / 120 3980 / 3980 Output Total 100 / 100 550 / 550 175 / 375 375 / 375 Balance -25 / -25 185 / 185 -55 / -255 3605 / 3605 Weight 61.745 kg 61.75 kg 63.503 kg 64.455 kg Narrative: - Constitutional NAD, thin, cachectic - *Routine HEENT Exam Head: Present: normocephalic Eye: Present: EOMI, PERRL ENT: Present: mucous membranes dry - *Routine Neck Exam Present: supple. Absent: lymphadenopathy - *Routine Respiratory Exam Present: rhonchi - *Routine Cardiovascular Exam Present: RRR, irregularly irregular - *Routine Abdominal Exam Present: soft. Scaphoid, thin abdomen, tender at sight of G-tube. CDI - *Routine Extremities Exam Absent: cyanosis, clubbing, edema - *Routine Skin Exam Present: dry, warm. Absent: rash - *Routine Neurological Exam Present: alert, oriented X3; Globally extremely weak Assessment and Plan (1) Dysphagia Status: Acute Qualifiers: Dysphagia type: esophageal phase Qualified Code(s): R13.19 - Other dysphagia Category: Medical Code(s): R13.10 - Dysphagia, unspecified (2) Mass of brain Status: Acute Category: Medical Code(s): G93.89 - Other specified disorders of brain (3) Schatzki's ring Status: Acute Category: Medical Code(s): K22.2 - Esophageal obstruction (4) Cachexia Status: Chronic Category: Medical Code(s): R64 - Cachexia (5) Severe protein-calorie malnutrition Status: Chronic Category: Medical Code(s): E43 - Unspecified severe protein-calorie malnutrition - Assessment and plan all Dx Assessment and Plan for all problems:: 76-old gentleman with severe malnutrition, soft tissue lesion on his brain, hypothyroid and cachexia. Admitted for intervention to assist with nutritional supplementation while he pursues work-up for his soft tissue mass in his brain. Surgery consulted, appreciate their recommendations. G-tube placed. Tube feeds initiated, up to goal of 55 an hour. Tolerating well with low residuals. -levothyroxine for hypothyroid per tube. -Holding diltiazem unless develops tachyarrhythmia or hypertension. -History of diabetes per chart, will monitor closely. If develops hyperglycemia after initiating tube feeds will start sliding scale insulin. Fingersticks for now to monitor glucose. Covid -Positive on evaluation by PCR. Patient is asymptomatic. Continue to monitor for any signs or symptoms. No indication for treatment at this time. Full code Patient is up to goal on feeds, unfortunately unable to get feeding supplies and pump for home delivery today.
[2021-10-30 22:51] LABS: POC Glucose,Bedside 125 (70-110)
[2021-10-30 22:51] LABS: POC Glucose,Bedside 100 (70-110)
[2021-10-31] VITALS: BP 126/59; PULSE 69; RESP 18; TEMP 36.4; O2SAT 97
[2021-10-31 04:00] VITALS: BP 141/68; PULSE 71; RESP 20; TEMP 36.2; O2SAT 99
[2021-10-31 05:00] VITALS: BMI 18.6
[2021-10-31 05:56] LABS: POC Glucose,Bedside 96 (70-110)
[2021-10-31 08:00] VITALS: BP 136/64; PULSE 78; RESP 18; TEMP 36.3; O2SAT 100
--- NOTE | 2021-10-31 08:56 | HMH.DCSUM ---
General - General Admission date:: 10/27/21 Discharge date: 10/31/21 HPI HPI: 76-year-old male who has enjoyed fairly good functional status until about 2 years ago when he began to have significant falls, gait instability, and was diagnosed with severe anxiety and was placed on BuSpar and Lexapro which has helped quite a bit. He regained quite a bit of function but unfortunately over the past 4 to 5 months has begun to lose his ability to walk, has had increased headaches, increased anxiety symptoms and has had frequent falls. Has been worked up in the ER several times, and a couple of weeks ago CT scanning showed a soft tissue masses in the bilateral [place] area. ER physician has made an appointment with patient for [facility] neurosurgery to evaluate, and patient was scheduled by our office for an MRI which he had yesterday. Yesterday he also had a modified barium swallow because of his increasing problems with choking, swallowing and inability to eat with increasing weakness. Speech therapy called me and told me that patient failed all aspects of swallowing and was unable to tolerate any type of liquids, thin or thick, or any solids without significant, severe and repetitive aspiration. I had patient and his son come in today to discuss the issue. Apparently they have been in the ER a couple more times over the past 3 or 4 days because of weakness, labs usually are drawn and he is given a bag of fluids and sent home, but the son notes that he is not eating anything at home over the past 2 weeks and has become increasingly weak and is unable to stand. In the office he was found to be tachycardic, clinically dehydrated, very weak with inability to stand on his own and he is admitted to hospital for laboratory studies and surgical consultation for PEG tube placement given the significant swallowing issues and worsening clinical status. Hospital Course Hospital Course: Patient was admitted, admission labs were stable compared to previous levels. Patient was consulted by general surgery. Appreciate input and procedure that was done, underwent uncomplicated PEG tube placement on October 29. EGD during procedure showed evidence of cricopharyngeal spasm and a minimal Schatzki's ring-this is interesting as it pertains to his significant swallowing dysfunction. PEG tube was placed without incident. Once again appreciate surgical consultation. Patient's PEG tube feedings were started, he was transitioned up to goal. Current goal rate of tube feedings is with Jevity 1.2 at 60 mL/h. Family is very sophisticated in regards to tube feeding/healthcare issues and they understand they can do bolus feedings at home. Today care management will work on home health for supply for tube feedings, etc. He will follow-up with neurosurgery for questionable soft tissue masses in his brain. We will continue with home health for tube feedings, PT/OT evaluation. Please note that patient is a candidate for home health because of severe immobility secondary to weakness, ataxia and frequent falls. Also needs nursing evaluation for ongoing tube feeds and PT/OT evaluation. Blood pressure medication will remain the same. Except have asked them to stop HCTZ given his risk for dehydration and kidney dysfunction. We will follow blood pressure with home health. Also ask him to stop MiraLAX and stool softeners given the propensity of tube feeds to cause diarrhea. Objective Vital signs: Temp Pulse Resp BP Pulse Ox 97.4 F L 78 18 136/64 100 10/31/21 08:00 10/31/21 08:00 10/31/21 08:00 10/31/21 08:00 10/31/21 08:00 no acute distress - *Routine HEENT Exam Head: Present: normocephalic Eye: Present: EOMI, PERRL ENT: Present: mucous membranes moist - *Routine Neck Exam Present: supple - *Routine Respiratory Exam Present: CTA bilaterally - *Routine Cardiovascular Exam Present: RRR - *Routine Abdominal Exa
--- NOTE | 2021-10-31 09:21 | DIET.NUTRFU ---
Pt tolerating TF well. His glucose is controlled. He plans to go home today. is on hospice at home, family if medically inclined, niece has the ability to work TF at home.
--- NOTE | 2021-10-31 09:34 | PC.NURSE ---
Discharge order placed but waiting to make sure patient will have resources needed at home.
--- NOTE | 2021-10-31 11:29 | SW/DCPLANNER ---
Addendum entered by [facility] 10/31/21 14:10: Eboni Marie has stated this patient has been approved and tube feedings will be delivered to patients home this evening. Eboni stated that she will call patients family. Addendum entered by [facility] 10/31/21 13:40: [facility] has stated that services will begin Sunday11/02/21. I am currently still waiting to hear back from Lashonda Marie regarding tube feedings at home. Addendum entered by [facility] 10/31/21 12:30: Lashonda Marie has called back requesting additional information. Original Note: This patient is currently medically stable for discharge. Patient will return home with family and home health services. Patient information/order for home tube feedings has been faxed to Lashonda Marie. I have asked nurse that patient wait to leave until this order is completed and a time is known for home delivery. I am still waiting to hear back from aLshonda Marie. Patient information/order has also been faxed to [facility] services: tube feeding education/nursing/PT/OT. I am also waiting to hear back from [facility] at this time. Patient is medically stable for discharge today.
[2021-10-31 11:54] LABS: POC Glucose,Bedside 84 (70-110)
[2021-10-31 12:00] VITALS: BP 140/69; PULSE 79; RESP 16; TEMP 36.4; O2SAT 99
--- NOTE | 2021-10-31 14:31 | PC.NURSE ---
Talked to patient's son, Maninder Arriola, who stated he was in town and would be able to pick his father up in about 30 minutes.
[2021-10-31 21:56] LABS: POC Glucose,Bedside 98 (70-110)
== END 2021-10-31 15:17 | disposition home health service (06) ==
LOC: 2ND 14:21 → ICU 14:21 → 2ND 10-29 14:13
PROVIDERS: Internal Medicine Adolescent Medicine; Surgery; Admitting Provider Internal Medicine Adolescent Medicine; PCP Internal Medicine Adolescent Medicine; Visit Provider Internal Medicine Adolescent Medicine
PROC: 0DH63UZ Insertion of Feeding Device into Stomach, Percutaneous Approach (ICD-10-PCS; CPT 43246; principal; 2021-10-28 10:30)
DX: E86.0 Dehydration (principal); R13.14 Dysphagia, pharyngoesophageal phase; E43 Unspecified severe protein-calorie malnutrition; Z68.1 Body mass index [BMI] 19.9 or less, adult; I48.91 Unspecified atrial fibrillation; E11.9 Type 2 diabetes mellitus without complications; I10 Essential (primary) hypertension; E03.9 Hypothyroidism, unspecified; J44.9 Chronic obstructive pulmonary disease, unspecified; R29.6 Repeated falls; Z20.822 Contact with and (suspected) exposure to COVID-19
CPT/HCPCS: 43246; G0378; 36415; 80048; 80053; 82962; 83735; 85025; 93005; C9803; U0003; U0005

== ENCOUNTER → 2021-12-28 13:48 | Outpatient (CLI) | payer MEDICARE, MEDICAID, SELFPAY ==
[2021-12-28 14:13] LABS: Basophils % 0.5 % (0.1-2.0); Eosinophils # 0.1 K/mm3 (0.0-0.4); Eosinophils % 1.8 % (0.1-12.0); Hematocrit 35.5 % (42.0-52.0); Hemoglobin 11.6 g/dL (14.1-18.0); Lymphocytes # 0.4 K/mm3 (0.7-4.5); Lymphocytes % 8.6 % (10-50); Mean Corpuscular HGB Conc 32.7 g/dL (31.8-35.4); Mean Corpuscular Hemoglobin 29.8 pg (27.0-31.2); Mean Corpuscular Volume 91.3 fl (80-94); Mean Platelet Volume 8.3 fl (7.4-10.4); Monocytes # 0.3 K/mm3 (0.1-1.0); Monocytes % 6.8 % (1.7-9.3); Neutrophils # 3.8 K/mm3 (1.8-7.8); Neutrophils % 82.3 % (37.0-80.0); Platelet Count 234 K/mm3 (142-424); Red Blood Count 3.89 M/mm3 (4.60-6.20); Red Cell Distribution Width 15.3 % (11.5-17.5); White Blood Count 4.6 K/mm3 (4.8-10.8)
[2021-12-28 14:30] LABS: Alanine Aminotransferase 10 U/L (12-78); Albumin Level 2.6 g/dl (3.5-5.0); Albumin/Globulin Ratio 1.1 (1.1-1.8); Alkaline Phosphatase 96 U/L (38-126); Aspartate Amino Transferase 18 U/L (17-59); Bilirubin,Total 0.5 mg/dl (0.2-1.3); Blood Urea Nitrogen 25 mg/dl (9-20); Calcium 7.9 mg/dl (8.4-10.2); Carbon Dioxide 32 mmol/L (22.0-30.0); Chloride 104 mmol/L (98-107); Estimated Glomerular Filt Rate 82 ml/min (>60); GFR (African American) 99 ML/MIN (>60); Globulin 2.4 g/dL (1.3-3.2); Glucose 103 mg/dl (74-100); Magnesium 1.7 mg/dl (1.6-2.3); Sodium 139 mmol/L (136-145)
== END ==
PROVIDERS: PCP Internal Medicine Adolescent Medicine; Visit Provider Internal Medicine Adolescent Medicine
DX: E43 Unspecified severe protein-calorie malnutrition (principal)
CPT/HCPCS: 80053; 83735; 85025

== ENCOUNTER 2022-02-25 10:58 | Emergency (ER) | payer MEDICARE, MEDICAID, SELFPAY ==
[2022-02-25 10:59] VITALS: BP 155/77; PULSE 115; RESP 16; TEMP 36.5; O2SAT 97; BMI 17.4
[2022-02-25 11:08] VITALS: BP 155/77; PULSE 118; O2SAT 98
[2022-02-25 11:30] VITALS: BP 140/71; PULSE 90; O2SAT 100
--- NOTE | 2022-02-25 11:33 | HMH.EDGENADL ---
ED Disposition Clinical Impression: Sore throat, Facial paresthesia, Anxiety state Diarrhea Qualifiers: Diarrhea type: unspecified type Qualified Code(s): R19.7 - Diarrhea, unspecified Disposition: Home, Self-Care Condition on Discharge: Good Additional Instructions: Call Dr. Escobedo for further care. Referrals: Sajan Escobedo MD [Primary Care Provider] - - Critical Care Critical Care Time: No Attestation: On 02/25/22, the high probability of a clinically significant, sudden or life threatening deterioration of the following system(s) required my full and direct attention, intervention and personal management. The time I documented below is in addition to time spent performing reported procedures but includes the following listed in this critical care notation. Medical Decision Making - Adrian Inquiry Pt receiving controlled substance: No Vital Signs: 02/25/22 10:59 02/25/22 11:08 02/25/22 11:30 Temperature 97.7 F Temperature Source Oral Pulse Rate 118 H 90 Pulse Rate [Radial] 115 H Respiratory Rate 16 Blood Pressure 155/77 H 140/71 Blood Pressure [Right Arm] 155/77 H Blood Pressure Mean [Right Arm] 103 Blood Pressure Position Blood Pressure Position [Right Arm] Sitting 02 Sat by Pulse Oximetry 97 98 100 Oxygen Delivery Method Room Air 02/25/22 11:41 Temperature Temperature Source Pulse Rate 90 Pulse Rate [Radial] Respiratory Rate Blood Pressure 140/71 Blood Pressure [Right Arm] Blood Pressure Mean [Right Arm] Blood Pressure Position Sitting Blood Pressure Position [Right Arm] 02 Sat by Pulse Oximetry Oxygen Delivery Method - Lab Data Lab Results 02/25/22 11:15: Group A Strep Rapid Negative Orders (Tests/Meds): ORDERS Category Date Time Status CMP [Comprehensive Metabolic Panel] Stat Lab 02/25/22 11:33 Ordered Complete Blood Count Auto Diff Stat Lab 02/25/22 11:33 Ordered Lipase Stat Lab 02/25/22 11:34 Ordered Troponin I Q3H Lab 02/25/22 14:45 Ordered Troponin I Q3H Lab 02/25/22 17:45 Ordered Troponin I Stat Lab 02/25/22 11:33 Ordered Strep Screen Confirmation Stat Micro 02/25/22 11:15 Received Medical Decision Narrative: Strep test is negative and patient's throat appears normal. Abdominal examination and neurological examination are both benign. Patient is signed declines any further work-up at this point. He feels patient is just anxious about his upcoming barium swallow test on Sunday. He feels that he is complaining of somatic symptoms related to his anxiety, trying to get out of this test. Advised to contact Dr. Escobedo about his upcoming test and anxiety related to it. Follow-up with Dr. Escobedo diarrhea persists. General Adult HPI - General Chief complaint: PAIN Stated complaint: abd pain, tingling on left side Time Seen by Provider: 02/25/22 11:33 Mode of Arrival: Ambulatory Limitations: No Limitations Description of Symptoms (Recalled from ER Triage Doc. by RN): TO ED PER [employer] PT'S SON REPORTS PT WITH C/O SORETHROAT, UPPER ABD PAIN WHICH PT NOW DENIES, TINGLING LT SIDE OF FACE CHRONIC. STATES PT HAD GTUBE FOR TUBE FEEDING AND IS SCHEDULED FOR A BARIUM SWALLOW SUNDAY AND PT HAS BEEN ANXIOUS ABOUT HAVING TEST STATING THAT HE IS GOING TO IF HE HAS IT DONE . SON STATES PT HAS BEEN EXPOSED TO FAMILY DX WITH STREP THROAT - History of Present Illness HPI narrative: History obtained from patient and son. Patient has several different complaints. He has had a sore throat when he swallows for 2 to 3 days. He has had epigastric pain, although he says his pain is now gone. He has had intermittent tingling of his left jaw, which is not a new symptom and is not currently present. 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 He has had diarrhea for the past 2 to 3 days. He has a feeding tube due to dysphagia. Recently he was having h
[2022-02-25 11:34] LABS: Strep Scrn Group A (Rapid) Negative (Negative)
[2022-02-25 11:41] VITALS: BP 140/71; PULSE 90
[2022-02-25 12:01] VITALS: BP 147/74; PULSE 88; RESP 18; TEMP 36.5; O2SAT 94
== END 2022-02-25 12:03 | disposition home or self-care (01) ==
PROVIDERS: Emergency Provider Emergency Medicine; PCP Internal Medicine Adolescent Medicine
DX: J02.9 Acute pharyngitis, unspecified (principal); R20.2 Paresthesia of skin; R19.7 Diarrhea, unspecified; I10 Essential (primary) hypertension; I48.91 Unspecified atrial fibrillation; I25.2 Old myocardial infarction; E78.5 Hyperlipidemia, unspecified; E11.9 Type 2 diabetes mellitus without complications; E03.9 Hypothyroidism, unspecified; J44.9 Chronic obstructive pulmonary disease, unspecified; F41.9 Anxiety disorder, unspecified; Z79.899 Other long term (current) drug therapy; Z87.891 Personal history of nicotine dependence
CPT/HCPCS: 87430

== ENCOUNTER → 2022-02-27 10:49 | Outpatient (CLI) | payer MEDICARE, MEDICAID, SELFPAY ==
--- NOTE | 2022-02-27 11:03 | FL_ITS ---
FINAL REPORT CLINICAL HISTORY: dysphagia fluoro time 3.59 FINDINGS: MODIFIED BARIUM SWALLOW HISTORY: Dysphagia. FINDINGS: Fluoroscopy was provided for the speech pathologist to evaluate the swallowing mechanism. The patient was given several different consistencies of barium while the swallow was visualized fluoroscopically. The report of the speech pathologist should be consulted prior to making dietary decisions. IMPRESSION: Modified barium swallow under fluoroscopic guidance. Please see speech pathologist's report for further details and dietary recommendations. Fluoroscopy time was 3 minutes 59 seconds A total of 23 cine runs were saved. Reviewed, Interpreted and Dictated by Mohan Licona III, MD Transcribed by Stella Ortiz PA-C Authenticated and [facility]
--- NOTE | 2022-02-27 11:48 | HMH.SLMBS2 ---
Speech & Language Evaluation Speech/Language Mod Barium Swallow Start: 02/27/22 11:33 Freq: once Status: Complete Protocol: Document 02/27/22 11:33 KARSTEN (Rec: 02/27/22 11:48 KARSTEN [id number]) General Information General Current Food Consistancy NPO Dentition Edentulous Oxygen Status Room Air Facial Symmetry Symmetrical Ability to Follow Directions Poor Communication Ability Severe Impairment MBS Recommendations Diet Dietary Recommendations NPO Referrals/Other Recommended Referrals Alternate Feeding Method Speech/Language MBS Assessment/Goals/Plan Assessment Date of Evaluation: 02/27/22 Evaluation Type Initial Certification Assessment/Problems Dysphagia with PEG Does Patient Qualify for Service No Qualify/Failure Comment Based on limited participation in MBSS, u/a to determine LRD at this time. Current FIELD RECORDER will f/u with POC. Recommendations PHYSICIAN CERTIFICATION: The specified therapy services are required, authorized, and reviewed every 30 days. Diet Recommendations NPO Plan Pt/Guardian verbally ack understanding Yes of dx/prognosis/goals Pt/Guardian verbally ack understanding Yes of/consent to tx prog G -code Required No Education Instructions provided Results of MBSS discussed with family who expressed understanding. Pt/Caregiver able to recall information Able to recall/restate Reinforcement needed No Mod Barium Swallow Setup Exam Setup Radiologist Mohan Licona Level of Consciousness Awake,Inappropriate, Disoriented Position (degrees) 90 Mod Barium Swallow-Lat View Textures Lateral View Food Presentation Thin Liquid via Cup,Thin Liquid via Straw,Honey Liquid via Spoon,Pureed Food- Thick, Mech. Soft Food- Regular, Regular Food,Pudding Oral Phase Labial Closure No Impairment (WFL) Other Oral Phase Observations Unable to fully asses oral function given patient's limited participation in the study. He would take a minimal bolus despite cues for larger bites 2' hearing impairment and AMS. Pharyngeal Phase Piriform Sinus Retention Severe Impairment Other Pharyngeal Phase Observation Unable to fully assess 2' limited participation. Very
== END ==
PROVIDERS: PCP Internal Medicine Adolescent Medicine; Visit Provider Internal Medicine Adolescent Medicine
DX: R13.10 Dysphagia, unspecified (principal)
CPT/HCPCS: 70371; 92611

== ENCOUNTER 2022-02-27 11:49 | Inpatient (IN) | payer MEDICARE, MEDICAID, SELFPAY ==
[2022-02-27] VITALS (22 sets, daily range): BP systolic 97–183; BP diastolic 45–83; PULSE 90–129; RESP 10–21; TEMP 36.8; O2SAT 95–100; BMI 19.8; BMI 18.6
--- NOTE | 2022-02-27 11:52 | CT_ITS ---
FINAL REPORT CLINICAL HISTORY: AMS, Stroke COMPARISON: October 20, 2021 CT FINDINGS: Axial images of the head were obtained without contrast. Coronal reformatted images were also obtained. This study was performed with techniques to keep radiation doses as low as reasonably achievable (ALARA). Individualized dose reduction techniques using automated exposure control or adjustment of mA and/or kV according to the patient''s size were employed. There is generalized age-appropriate atrophy. Periventricular low-attenuation areas are seen consistent with moderate chronic ischemic changes. There is no evidence of intracranial hemorrhage or mass. There is no evidence of acute infarct. There is no evidence of shift of the midline structures. No skull abnormality is seen on the bone window images. Note is made of prominence of the distal internal carotid arteries which are visually stable. IMPRESSION: Atrophy and moderate periventricular chronic ischemic changes. No acute intracranial abnormality identified. Authenticated and ERN
--- NOTE | 2022-02-27 11:52 | CT_ITS ---
FINAL REPORT CLINICAL HISTORY: stroke, COMPARISON: October 20, 2021 CT FINDINGS: Thin section axial CT images of the neck were obtained after the intravenous injection of contrast. Sagittal and coronal 3-D MIPS were also obtained and reviewed. This study was performed with techniques to keep radiation doses as low as reasonably achievable (ALARA). Individualized dose reduction techniques using automated exposure control or adjustment of mA and/or kV according to the patient''s size were employed. The bilateral common carotid and proximal and mid internal carotid arteries have an unremarkable appearance without evidence of stenosis or occlusion. There is stable aneurysmal dilatation of the distal internal carotid arteries. The external carotid arteries are patent. The vertebral arteries are patent without evidence of significant stenosis. The left vertebral artery is dominant. IMPRESSION: No evidence of significant stenosis or major branch occlusion. 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 Authenticated and ERN
--- NOTE | 2022-02-27 11:52 | CT_ITS ---
FINAL REPORT TECHNIQUE: Thin section axial CT with IV contrast supplemented with multiplanar reconstruction under CT angiogram protocol. 3-D reconstructions were performed. This study was performed with techniques to keep radiation doses as low as reasonably achievable (ALARA). Individualized dose reduction techniques using automated exposure control or adjustment of mA and/or kV according to the patient''s size were employed. CLINICAL HISTORY: stroke, ams, sz COMPARISON: October 20, 2021 CT FINDINGS: Again noted is aneurysmal dilatation of the bilateral distal internal carotid arteries with the distal right internal carotid artery measuring up to 9 mm in diameter and the distal left internal carotid artery 18 mm. These are visually stable. The proximal anterior, middle and posterior cerebral arteries have an unremarkable appearance without evidence of significant stenosis or major branch occlusion. The overall appearance is visually stable. 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 No evidence of significant stenosis or major branch occlusion. Authenticated and ERN
--- NOTE | 2022-02-27 11:52 | PC.NURSE ---
pt to CT
--- NOTE | 2022-02-27 11:53 | PC.NURSE ---
PT going to CT
--- NOTE | 2022-02-27 11:55 | PC.NURSE ---
notified RT of vbg
--- NOTE | 2022-02-27 11:57 | PC.NURSE ---
pt began having a seizure in CT room, staff notified, ER MD to CT. Seizure lasted approx 30 seconds. Went to [employer] cell to get Ativan 2-4 mg per IV per ER MD verbal order. Pt stopped seizing prior to administration of ativan. Pt on monitor. Rad staff going to proceed with pt CT scan at this time.
--- NOTE | 2022-02-27 12:04 | HMH.EDGENADL ---
ED Disposition Clinical Impression: Tonic clonic seizures Altered mental status Qualifiers: Altered mental status type: unspecified Qualified Code(s): R41.82 - Altered mental status, unspecified Disposition: Xfer Critical Access Hosp Condition on Discharge: Fair Referrals: Wilder Pantoja MD [Primary Care Provider] - Time of Disposition: 15:01 - Critical Care Critical Care Time: No Attestation: On , the high probability of a clinically significant, sudden or life threatening deterioration of the following system(s) required my full and direct attention, intervention and personal management. The time I documented below is in addition to time spent performing reported procedures but includes the following listed in this critical care notation. Medical Decision Making - Medical Records Medical records reviewed: Yes: I reviewed the patient's medical records. - Adrian Inquiry Pt receiving controlled substance: No Vital Signs: 02/27/22 11:51 02/27/22 12:31 02/27/22 13:00 Pulse Rate 129 H 112 H Pulse Rate [Right Radial] 120 H Respiratory Rate 10 L 20 18 Blood Pressure 113/45 L 116/62 Blood Pressure [Right Arm] 183/83 H Blood Pressure Mean 67 74 Blood Pressure Mean [Right Arm] 116 Blood Pressure Source [Right Arm] Automatic Cuff Blood Pressure Position [Right Arm] Sitting 02 Sat by Pulse Oximetry 100 95 98 Oxygen Delivery Method Room Air Nasal Cannula Nasal Cannula Oxygen Flow Rate (LPM) 2 2 02/27/22 13:30 02/27/22 14:00 02/27/22 14:30 Pulse Rate 95 H 102 H 97 H Pulse Rate [Right Radial] Respiratory Rate 18 18 18 Blood Pressure 103/57 L 107/58 L 110/58 L Blood Pressure [Right Arm] Blood Pressure Mean 68 77 72 Blood Pressure Mean [Right Arm] Blood Pressure Source [Right Arm] Blood Pressure Position [Right Arm] 02 Sat by Pulse Oximetry 100 99 100 Oxygen Delivery Method Oxygen Flow Rate (LPM) 02/27/22 15:00 02/27/22 15:30 02/27/22 16:00 Pulse Rate 97 H 98 H 91 H Pulse Rate [Right Radial] Respiratory Rate 18 16 21 Blood Pressure 118/63 127/60 119/57 L Blood Pressure [Right Arm] Blood Pressure Mean 74 80 77 Blood Pressure Mean [Right Arm] Blood Pressure Source [Right Arm] Blood Pressure Position [Right Arm] 02 Sat by Pulse Oximetry 100 98 99 Oxygen Delivery Method Oxygen Flow Rate (LPM) - Lab Data Lab Results 02/27/22 11:52: WBC 8.2, RBC 5.06, Hgb 14.9, Hct 44.6, MCV 88.2, MCH 29.4, MCHC 33.3, RDW 13.9, Plt Count 228, MPV 7.9, Neut % (Auto) 66.9, Lymph % (Auto) 23.4, [place] % (Auto) 7.4, Eos % (Auto) 1.9, Baso % (Auto) 0.3, Neut # (Auto) 5.5, Lymph # (Auto) 1.9, [place] # (Auto) 0.6, Eos # (Auto) 0.2, Baso # (Auto) 0.0 02/27/22 11:52: PT 10.9, INR 0.96, APTT 28.8 02/27/22 11:52: Sodium 140, Potassium 4.0, Chloride 100, Carbon Dioxide 25, Anion Gap 19.0 H, BUN 18, Creatinine 0.90, Estimated Creat Clear 52, Estimated GFR 82, Est GFR ( Amer) 99, Glucose 125 H, Calcium 9.9, Total Bilirubin 0.8, AST 34, ALT 23, Alkaline Phosphatase 168 H, Troponin I < 0.01, Total Protein 8.1 D, Albumin 4.5, Globulin 3.6 H, Albumin/Globulin Ratio 1.3 02/27/22 11:53: VBG pH 7.24 L, VBG pCO2 51.4 H, VBG pO2 42.6 H, VBG HCO3 21.6 L, VBG Total CO2 23.2, VBG O2 Saturation 70.0, VBG Base Excess -5.8 L 02/27/22 14:52: Troponin I < 0.01 Result diagrams: 02/27/22 11:52 02/27/22 11:52 Orders (Tests/Meds): ED MEDICATIONS Generic Name Dose Route Start Last Admin Trade Name Freq PRN Reason Stop Dose Admin Sodium Chloride 10 ml 02/27/22 12:13 Sodium Chloride 0.9% 10ml Vial IV 03/29/22 12:12 NEEDED PRN to Dilute Lorazepam inj Discontinued Medications Generic Name Dose Route Start Last Admin Trade Name Freq PRN Reason Stop Dose Admin Sodium Chloride 1,000 mls @ 999 mls/hr 02/27/22 13:15 02/27/22 13:42 Sod Chlor 0.9% 1000ml Bag IV 02/27/22 14:15 999 mls/hr .Q1H1M TANA Administration Levetiracetam 1,500 mg/ Sodium 115 mls @ 23
[2022-02-27 12:05] LABS: Basophils % 0.3 % (0.1-2.0); Eosinophils # 0.2 K/mm3 (0.0-0.4); Eosinophils % 1.9 % (0.1-12.0); Hematocrit 44.6 % (42.0-52.0); Hemoglobin 14.9 g/dL (14.1-18.0); Lymphocytes # 1.9 K/mm3 (0.7-4.5); Lymphocytes % 23.4 % (10-50); Mean Corpuscular HGB Conc 33.3 g/dL (31.8-35.4); Mean Corpuscular Hemoglobin 29.4 pg (27.0-31.2); Mean Corpuscular Volume 88.2 fl (80-94); Mean Platelet Volume 7.9 fl (7.4-10.4); Monocytes # 0.6 K/mm3 (0.1-1.0); Monocytes % 7.4 % (1.7-9.3); Neutrophils # 5.5 K/mm3 (1.8-7.8); Neutrophils % 66.9 % (37.0-80.0); Platelet Count 228 K/mm3 (142-424); Red Blood Count 5.06 M/mm3 (4.60-6.20); Red Cell Distribution Width 13.9 % (11.5-17.5); White Blood Count 8.2 K/mm3 (4.8-10.8)
[2022-02-27 12:06] LABS: Chloride 100 mmol/L (98-107)
[2022-02-27 12:07] LABS: Sodium 140 mmol/L (136-145)
[2022-02-27 12:09] LABS: Alanine Aminotransferase 23 U/L (12-78); Aspartate Amino Transferase 34 U/L (17-59); Blood Urea Nitrogen 18 mg/dl (9-20); Creatinine Clearance Estimated 52 mL/min (50-200); Estimated Glomerular Filt Rate 82 ml/min (>60); GFR (African American) 99 ML/MIN (>60)
[2022-02-27 12:10] LABS: Albumin Level 4.5 g/dl (3.5-5.0); Albumin/Globulin Ratio 1.3 (1.1-1.8); Alkaline Phosphatase 168 U/L (38-126); Bilirubin,Total 0.8 mg/dl (0.2-1.3); Calcium 9.9 mg/dl (8.4-10.2); Carbon Dioxide 25 mmol/L (22.0-30.0); Globulin 3.6 g/dL (1.3-3.2); Glucose 125 mg/dl (74-100); Total Protein,Serum 8.1 g/dl (6.3-8.2)
--- NOTE | 2022-02-27 12:15 | PC.NURSE ---
approx [address] scanner, pt begins waking up, pt very confused. Unable to get pt to hold still for CT scans. ER MD alerted of this. ER MD gave verbal order for ativan 1mg per IV one time. Ativan given per IV. After approx 1 min pt did begin to calm down. Pt VSS. Rad staff able to proceed with CTA.
[2022-02-27 12:19] LABS: VBG Base Excess -5.8 mmol/L (-2.4-2.3); VBG HCO3 21.6 mmol/L (23-30); VBG PCO2 51.4 mmol/L (35-51); VBG PH 7.24 mmol/L (7.31-7.41); VBG PO2 42.6 mmol/L (28-40); VBG Total CO2 23.2 mmol/L (23-27)
[2022-02-27 12:22] LABS: Troponin I < 0.01 ng/ml (0.00-0.034)
[2022-02-27 12:27] LABS: Activated Partial Thrombo Time 28.8 seconds (22.8-30.6); INR 0.96 (0.9-1.1); Prothrombin Time 10.9 seconds (10.1-12.5)
--- NOTE | 2022-02-27 12:30 | PC.NURSE ---
return from CT via stretcher at this, pt on monitor, myself transporting pt.
--- NOTE | 2022-02-27 12:31 | PC.NURSE ---
Seizure pads in place. Son at bedside.
--- NOTE | 2022-02-27 12:32 | PC.NURSE ---
GERA PERKINS at speaking with pt son at this time.
--- NOTE | 2022-02-27 12:41 | PC.NURSE ---
ER MD back to BS at this time to speak with pt daughter in law, pt son reports she can give more information than him.
--- NOTE | 2022-02-27 13:07 | PC.NURSE ---
approx 1151 just prior to pt going to CT pt did open his eyes in response to staff, moving L arm voluntarily. ER at at this time at is aware.
--- NOTE | 2022-02-27 15:01 | PC.NURSE ---
contacted pharmacy to mix akua herr
--- NOTE | 2022-02-27 15:18 | PC.NURSE ---
called [facility] for neuro, pt will be put on wait list, Dr Marshall is to call back.
[2022-02-27 15:23] LABS: Troponin I < 0.01 ng/ml (0.00-0.034)
--- NOTE | 2022-02-27 16:44 | PC.NURSE ---
Called [facility] they are to page the MD again.
--- NOTE | 2022-02-27 18:56 | PC.NURSE ---
Dr. Chapman attempted LP. Pt prepared and positioned well. unable to collect sample. Pt tolerated procedure well. Laid flat on stretchers and seizure pads replaced on side-rails
[2022-02-27 21:27] LABS: Coronavirus 19, PCR Not Detected (NotDetected); Influenza A, PCR Not Detected (NotDetected); Influenza B, PCR Not Detected (NotDetected)
--- NOTE | 2022-02-27 22:02 | PC.NURSE ---
family notified of admission here until able to transfer to [facility]
--- NOTE | 2022-02-27 22:19 | PC.NURSE ---
PT ARRIVED TO FLOOR VIA STRETCHER FROM ED W/STAFF @ [id number]
--- NOTE | 2022-02-28 00:30 | PC.NURSE ---
Nutrition consult entered as well as PT wound eval for low Joaquin score. Pt has no areas of concern on skin, but d/t bony prominences pressure relieving dressings have been applied. Pt has been made a q2h turn. Seizure pads in place and bed alarm is on for safety.
--- NOTE | 2022-02-28 02:34 | PC.NURSE ---
Positive bowel sounds noted when flushing pt gtube per auscultation
[2022-02-28 04:00] VITALS: BP 101/47; PULSE 90; RESP 20; TEMP 36.9; O2SAT 99
--- NOTE | 2022-02-28 04:12 | PC.NURSE ---
Pt has done well since arriving to the floor. No seizure activity has been noted thus far this shift. Pt continue to wear 2LNC w/ satisfactory o2 sats. Pt has been A&Ox4 this shift. Seizure pads remain on bed for protection as well as pt's bed alarm. Pt's Sofi DAVILA Day has been updated on POC. All questions answered. No other acute changes, will monitor.
[2022-02-28 05:02] VITALS: BMI 20.9
--- NOTE | 2022-02-28 06:01 | PC.NURSE ---
Spoke to [facility], no beds available at this time.
--- NOTE | 2022-02-28 07:11 | HMH.PHAVTE ---
[facility] Pharmacy VTE Monitoring - Patient Demographics Admission date: 02/27/22 Report Date: 02/28/22 Time: 07:11 Allergies/Adverse Reactions: Patient Allergies No Known Allergies Allergy (Verified 11/14/21 09:31) Height: 1.78 m Weight: 66.179 kg Patient Problems: Current Active Problems Tonic clonic seizures (Acute) Altered mental status (Acute) - VTE Risk Labs: VTE Related Lab Results Hgb 14.9 g/dL (14.1-18.0) 02/27/22 11:52 Hct 44.6 % (42.0-52.0) 02/27/22 11:52 Plt Count 228 K/mm3 (142-424) 02/27/22 11:52 PT 10.9 seconds (10.1-12.5) 02/27/22 11:52 INR 0.96 (0.9-1.1) 02/27/22 11:52 APTT 28.8 seconds (22.8-30.6) 02/27/22 11:52 BUN 18 mg/dl (9-20) 02/27/22 11:52 Creatinine 0.90 mg/dl (0.66-1.25) 02/27/22 11:52 Estimated Creat Clear 52 mL/min (50-200) 02/27/22 11:52 VTE Score: 8 VTE Risk Level: Moderate Risk - Prophylaxis VTE Prophylaxis Ordered?: Yes Types of VTE Prophylaxis: TEDS Knee High Location of Applied Device: Bilateral Lower Extremeties
--- NOTE | 2022-02-28 07:16 | HMH.HP ---
*Admission Date: 02/27/22 *Chief complaint: seizure like activity *History of present illness: Mr. 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 History obtained from prior notes, patient does not have recollection of events of yesterday on exam this morning. He reportedly was confused earlier in the day but that improved after obtaining barium swallow to assess the reason that he requires his G-tube and his inability to swallow. No report as of yet on the barium swallow. However on his way home, he was noted to become altered, nonresponsive, and had some shaking looking like a seizure. He was brought back to the hospital to the emergency room. On arrival he had an episode with seizure-like activity, deviating to the left with his eyes, and generalized shaking of his extremities. This occurred while he was in the CT scanner for a CT head (stroke alert). Episode lasted less than 30 seconds, was given 1 mg of IV Ativan. Vitals stable, no hypoxia, and had postictal state with somnolence and confusion. Work-up in the ER including labs and imaging. Noted to have a slight acidosis after his seizure. No other significant electrolyte disturbances. CT of his head unremarkable, consistent with previous imaging over the past 4 to 6 months. He was loaded with 1500 mg of Keppra and started on 500 mg twice daily. Attempt to transfer was made, [facility] and patient accepted however no bed at this time. Would benefit from inpatient neurology. On evaluation this morning, patient is comfortable, supine on exam. Awakes to voice. Hard of hearing but answers questions in a difficult to understand voice due to being edentulous. Denies nausea, chest pain, shortness of breath. [facility] History I have reviewed the patient's past medical history: Yes Medical History: Reports:: Atrial Fibrillation, Cancer, Chronic Obstructive Pulmonary Disease (COPD), Hyperlipidemia, Hypertension, Myocardial Infarction Denies:: Diabetes Mellitus Type 1, Diabetes Mellitus Type 2, Internal Pacemaker, MRSA, Seizures *Have you ever received a pneumonia vaccine?: Yes *Have you received a flu vaccine this season?: Yes Other Medical History: Reports: Anemia, Arthritis, Cataracts, Glaucoma, Hypothyroidism Other Surgeries: Yes: Colonoscopy, Other. No: Pacemaker Amputation: No - *Social History Smoking Status: Former smoker Tobacco Type: cigarettes Alcohol Intake: never Substance Use Type: denies use *Occupational Status:: retired, disabled Housing: house Household Members: children *Travel in the last 8 weeks: None Family Hx:: Unable to obtain Review of Systems - Review of Systems Review of systems:: pertinent systems reviewed and negative unless documented below (14 point review of systems performed, pertinent positives and negatives as per HPI) Meds Home Medications Medication Instructions Recorded Confirmed Type Levothyroxine Sodium 88 mcg PO DAILY 04/16/19 02/27/22 History [Levothyroxine 88mcg (0.088mg) Tab] Buspirone HCl [Buspar 10mg 10 mg PO BIDP PRN 06/09/21 02/27/22 History tablet] Pravastatin Sodium [Pravachol 20mg 20 mg PO HS 06/09/21 02/27/22 History Tablet] Cyanocobalamin (Vitamin B-12) 1,000 mcg IM MONTHLY 02/28/22 02/28/22 History [Cyanocobalamin 1,000mcg/mL Vial] Allergies Allergy/AdvReac Type Severity Reaction Status Date / Time No Known Allergies Allergy Verified 11/14/21 09:31 Exam Vital signs and Labs for Last 24 Hours: Temp Pulse Resp BP Pulse Ox 98.4 F 90 20 101/47 L 99 02/28/22 04:00 02/28/22 04:00 02/28/22 04:00 02/28/22 04:00 02/28/22 04:00 Laboratory Results - last 24 hr 02/27/22 11:52: WBC 8.2, RBC 5.06, Hgb 14.9, Hct 44.6, MCV 88.2, MCH 29.4, MCHC 33.3, RDW 13.9, Plt Count 228, MPV 7.9, Neut % (Auto) 66.9, Lym
[2022-02-28 07:50] LABS: Basophils % 0.7 % (0.1-2.0); Eosinophils # 0.1 K/mm3 (0.0-0.4); Eosinophils % 1.4 % (0.1-12.0); Hematocrit 33.5 % (42.0-52.0); Lymphocytes # 0.5 K/mm3 (0.7-4.5); Lymphocytes % 14.4 % (10-50); Mean Corpuscular HGB Conc 34.6 g/dL (31.8-35.4); Mean Corpuscular Hemoglobin 30.4 pg (27.0-31.2); Mean Corpuscular Volume 88.1 fl (80-94); Mean Platelet Volume 8.4 fl (7.4-10.4); Monocytes # 0.3 K/mm3 (0.1-1.0); Monocytes % 7.1 % (1.7-9.3); Neutrophils # 2.7 K/mm3 (1.8-7.8); Neutrophils % 76.5 % (37.0-80.0); Platelet Count 156 K/mm3 (142-424); Red Cell Distribution Width 14.7 % (11.5-17.5); White Blood Count 3.5 K/mm3 (4.8-10.8)
[2022-02-28 08:00] VITALS: BP 118/72; PULSE 95; RESP 17; TEMP 36.9; O2SAT 92
[2022-02-28 08:09] LABS: Hemoglobin 11.6 g/dL (14.1-18.0)
[2022-02-28 09:37] LABS: Chloride 105 mmol/L (98-107); Potassium 3.9 mmoL/L (3.5-5.1); Sodium 137 mmol/L (136-145)
[2022-02-28 09:40] LABS: Anion Gap 7.9 mEq/L (5-15); Blood Urea Nitrogen 18 mg/dl (9-20); Calcium 8.7 mg/dl (8.4-10.2); Carbon Dioxide 28 mmol/L (22.0-30.0); Creatinine Clearance Estimated 59 mL/min (50-200); Estimated Glomerular Filt Rate 82 ml/min (>60); GFR (African American) 99 ML/MIN (>60); Glucose 81 mg/dl (74-100)
--- NOTE | 2022-02-28 10:18 | DIET.NUTRFU ---
Addendum entered by Eneida Abel RD, LD 02/28/22 13:10: TF started, tolerating so far at 30ml/hr with flush adjusted at 128ml [id number]=[id number]/day Original Note: Spoke to daughter and law Sofi about TF regimen at home. She was running Jevity 1.2 60ml of formula and 32ml of fluid/hr ATC via pump. Providing 1440ml formula/1728kcal/80gm protein and 1162 formula water with flush providing 768ml with total fluid 1930ml/day. This is meeting 100% of nutritional needs, he is NPO other than a few sips of water or ice chips with [employer] or family. Patient is actually scared of choking and was unable to complete the barium swallow test. According to Sofi he has been having issues with diarrhea at home recently, she tried some imudium prescribed by Fanny. Reviewed this with nursing she will monitor BM once TF starts. Reviewed labs. RD was also consulted for low Joaquin score, patient is at high risk d/t bony prominence limited mobility. Will continue to monitor for skin breakdown
[2022-02-28 10:42] VITALS: BMI 20.9
--- NOTE | 2022-02-28 10:56 | HMH.PTWOUND ---
Rehab Inpt Wound Evaluation Rehab IP Wound Evaluation Start: 02/28/22 00:30 Freq: ONCE Status: Active Protocol: Document 02/28/22 10:52 CASANDRAHARSHA (Rec: 02/28/22 10:54 CARLOTTA [id number]) Rehab PT Wound Assessment Patient Status Premedicated Prior to Dressing Change No Subjective Subjective Pt alert and oriented x 3 - able to sit EOB and roll to allow wound inspection Plan/Recommendation Comment Pt has no open wounds - pt is very thin w/ significant bony prominces and nsg has placed optifoam to prevent skin breakndown. No wound care needed at this time Eval Complexity Eval Charge Codes 14644 - Low Complexity G-codes PT Current Status Other PT/OT Status PT Current Status Modifier CI-At least 1% but less than 20% impaired, limited or restricted PT Goal Status Other PT/OT Status PT Goal Status Modifer CI-At least 1% but less than 20% impaired, limited or restricted PHYSICIAN CERTIFICATION: I certify the specified therapy services for Sajan Arriola are required, authorized, and reviewed every 30 days.
--- NOTE | 2022-02-28 12:17 | HMH.PHAINT ---
MEDICATION RECONCILIATION COMPLETED ON PATIENT USING EXTERNAL FILL HISTORY FROM PHARMACY AND LIST FROM PCP OFFICE. -GIOVANI JEAND
--- NOTE | 2022-02-28 12:21 | PC.NURSE ---
tube feeds started at a rate of 30ml/hr with water flush of 128 every 4 hrs. 1220
--- NOTE | 2022-02-28 14:41 | PC.NURSE ---
1430 family called to check on pt and had requests. requests relayed to . Family states the pt has had mucousy diarrhea and wanted a specimen collected. they would also like a urine collected. family also stated that they were ok if the pt had to be transferred somewhere other than in order to obtain bed. (family was informed that bed availability at most hospitals were tenuous as of late). Dr Escobedo entered orders.
[2022-02-28 15:10] VITALS: BP 109/50; PULSE 85; RESP 16; TEMP 36.8; O2SAT 100
--- NOTE | 2022-02-28 16:10 | PC.NURSE ---
report given to Kt Kohler and Jovita Mejias at 1534
[2022-02-28 17:05] LABS: Thyroid Stimulating Hormone 2.94 uIU/mL (0.465-4.68)
[2022-02-28 17:32] LABS: Microscopic,Cath URINE MICROSCOPIC (MICROSCOPIC)
--- NOTE | 2022-02-28 17:59 | PC.NURSE ---
Gregory Springer RN received phone call at this time from [facility] bed control. no telemetry bed available at this time. 1800
[2022-02-28 19:47] VITALS: BP 108/52; PULSE 74; RESP 18; TEMP 36.4; O2SAT 100
[2022-02-28 20:00] VITALS: O2SAT 100
[2022-02-28 20:33] LABS: Appearance,Urine/Cath CLOUDY (Clear); Bilirubin,Cath Negative (Negative); Blood, Urine/Cath Negative (Negative); Color,Urine/Cath YELLOW (Yellow); Glucose,Urine/Cath (UA) Negative (Negative); Ketones,Urine/Cath 1+ (Negative); Leukocyte Esterase,Cath 1+ (Negative); Nitrate,Cath Negative (Negative); PH,Urine/Cath 5.5 (5.0-8.5); Protein,Urine/Cath Negative (Negative); Specific Gravity, Urine/Cath 1.025 (1.005-1.030); Urobilinogen,Cath 0.2 EU/dl (0.2)
[2022-02-28 21:06] LABS: Bacteria,Urine/Cath 4+ /lpf
[2022-02-28 23:08] LABS: Adenovirus F 40/41, stool Not Detected (NotDetected); Astrovirus Not Detected (NotDetected); Campylobacter Not Detected (NotDetected); Cryptosporidium Not Detected (NotDetected); Cyclospora Cayetanesis Not Detected (NotDetected); Entamoeba histolytica Not Detected (NotDetected); Enteroaggregative E coli Not Detected (NotDetected); Enteropathogenic E coli Not Detected (NotDetected); Enterotoxigenic E coli Not Detected (NotDetected); Giardia lamblia Not Detected (NotDetected); Norovirus Not Detected (NotDetected); Plesimonas Shigalloides, PCR Not Detected (NotDetected); Rotavirus A Not Detected (NotDetected); Salmonella, PCR Not Detected (NotDetected); Sapovirus Not Detected (NotDetected); Shiga-like toxin E coli Not Detected (NotDetected); Shigella Enterovasive E coli Not Detected (NotDetected); Vibrio Cholerae Not Detected (NotDetected); Vibrio, PCR Not Detected (NotDetected); Yersinia Entercolitica, PCR Not Detected (NotDetected)
[2022-03-01 02:38] LABS: Clostridium Difficile A/B, PCR Detected (NotDetected)
--- NOTE | 2022-03-01 02:59 | PC.NURSE ---
notified of C.Difficile detected in stool sample. New orders received, see NOV.
[2022-03-01 04:00] VITALS: BP 101/47; PULSE 71; RESP 18; TEMP 37; O2SAT 97
[2022-03-01 05:00] VITALS: BMI 13.1
--- NOTE | 2022-03-01 06:18 | PC.NURSE ---
Pt has rested well this shift. Pt is A/O x3, can state name, and place. Pt has used the urinal independently, but remains incontinent of bowel. Pt had x1 loose BM this shift. Pt has been turned Q2H. Pt remains on 2L with O2 sats >90%. No seizure activity reported this shift. CB called at this time and reported no beds available.
[2022-03-01 07:44] LABS: Chloride 105 mmol/L (98-107); Sodium 136 mmol/L (136-145)
[2022-03-01 07:45] LABS: Potassium 3.6 mmoL/L (3.5-5.1)
[2022-03-01 07:47] LABS: Alanine Aminotransferase 12 U/L (12-78); Albumin Level 2.7 g/dl (3.5-5.0); Alkaline Phosphatase 90 U/L (38-126); Anion Gap 5.6 mEq/L (5-15); Aspartate Amino Transferase 21 U/L (17-59); Bilirubin,Total 0.4 mg/dl (0.2-1.3); Blood Urea Nitrogen 16 mg/dl (9-20); Calcium 8.1 mg/dl (8.4-10.2); Carbon Dioxide 29 mmol/L (22.0-30.0); Creatinine Clearance Estimated 37 mL/min (50-200); Estimated Glomerular Filt Rate 110 ml/min (>60); GFR (African American) 133 ML/MIN (>60); Globulin 2.6 g/dL (1.3-3.2); Glucose 112 mg/dl (74-100); Total Protein,Serum 5.3 g/dl (6.3-8.2)
[2022-03-01 07:48] LABS: Magnesium 1.6 mg/dl (1.6-2.3)
[2022-03-01 07:53] VITALS: BP 114/60; PULSE 73; RESP 16; TEMP 36.6; O2SAT 100
[2022-03-01 07:57] LABS: Basophils % 0.7 % (0.1-2.0); Eosinophils # 0.1 K/mm3 (0.0-0.4); Eosinophils % 2.4 % (0.1-12.0); Hematocrit 30.4 % (42.0-52.0); Hemoglobin 10.5 g/dL (14.1-18.0); Lymphocytes # 0.5 K/mm3 (0.7-4.5); Lymphocytes % 14.7 % (10-50); Mean Corpuscular HGB Conc 34.4 g/dL (31.8-35.4); Mean Corpuscular Hemoglobin 30.8 pg (27.0-31.2); Mean Corpuscular Volume 89.6 fl (80-94); Monocytes # 0.2 K/mm3 (0.1-1.0); Monocytes % 7.2 % (1.7-9.3); Neutrophils # 2.5 K/mm3 (1.8-7.8); Neutrophils % 75.1 % (37.0-80.0); Platelet Count 150 K/mm3 (142-424); Red Blood Count 3.39 M/mm3 (4.60-6.20); Red Cell Distribution Width 14.6 % (11.5-17.5); White Blood Count 3.3 K/mm3 (4.8-10.8)
[2022-03-01 08:00] VITALS: O2SAT 100
--- NOTE | 2022-03-01 08:29 | HMH.ACPN2 ---
Internal Medicine - PN: Subj *Date: 03/01/22 *Time: 08:29 Interval history: Patient is alert, pleasant. Talkative. States that he is having trouble swallowing but this is his baseline. Follows commands. Tube feeds have been upgraded to 30 mL/h. Nursing reports no further seizure activity. Exam Vital signs and Labs for Last 24 Hours: Temp Pulse Resp BP Pulse Ox 97.8 F 73 16 114/60 100 03/01/22 07:53 03/01/22 07:53 03/01/22 07:53 03/01/22 07:53 03/01/22 07:53 Laboratory Results - last 24 hr 02/28/22 06:23: Sodium 137, Potassium 3.9, Chloride 105, Carbon Dioxide 28, Anion Gap 7.9, BUN 18, Creatinine 0.90, Estimated Creat Clear 59, Estimated GFR 82, Est GFR ( Amer) 99, Glucose 81 D, Calcium 8.7 02/28/22 16:00: Hgb 11.0 L, Hct 22.0 L 02/28/22 16:00: TSH 2.94 02/28/22 17:25: Urine Color Yellow, Urine Appearance Cloudy, Urine pH 5.5, Ur Specific [place] 1.025, Urine Protein Negative, Urine Glucose (UA) Negative, Urine Ketones 1+, Urine Blood Negative, Urine Nitrate Negative, Urine Bilirubin Negative, Urine Urobilinogen 0.2, Ur Leukocyte Esterase 1+ A, Urine RBC None, Urine WBC 10-20 A, Ur Squamous Epith Cells None, Urine Bacteria 4+ A 02/28/22 23:00: Stl Aeromonas (PCR) Not detected, Stl C. cayetanensis PCR Not detected, Stool Rotavirus (PCR) Not detected, Stl Adenov F 40/41 PCR Not detected, Stool Astrovirus (PCR) Not detected, Stool Campylobacter PCR Not detected, Stl C.difficile Tox PCR Detected A, Stool Cryptosporidium PCR Not detected, Stl E.coli Shiga Tox PCR Not detected, Stool E coli O157 PCR Not detected, Stl Enterotoxigenic E PCR Not detected, Stool EPEC (PCR) Not detected, Stool EAEC (PCR) Not detected, Stl E. histolytica PCR Not detected, Stool Giardia Lamblia PCR Not detected, Stool Salmonella PCR Not detected, Stool Sapovirus (PCR) Not detected, Stl P. shigelloides PCR Not detected, Stl Shigella/EIEC PCR Not detected, St Y.enterocolitica PCR Not detected, Stool Vibrio (PCR) Not detected, Stl Vibrio cholerae PCR Not detected, Stl Norovirus GI/GII PCR Not detected 03/01/22 06:54: WBC 3.3 L, RBC 3.39 L, Hgb 10.5 L, Hct 30.4 L, MCV 89.6, MCH 30.8, MCHC 34.4, RDW 14.6, Plt Count 150, MPV 8.0, Neut % (Auto) 75.1, Lymph % (Auto) 14.7, [place] % (Auto) 7.2, Eos % (Auto) 2.4, Baso % (Auto) 0.7, Neut # (Auto) 2.5, Lymph # (Auto) 0.5 L, [place] # (Auto) 0.2, Eos # (Auto) 0.1, Baso # (Auto) 0.0 03/01/22 06:54: Sodium 136, Potassium 3.6, Chloride 105, Carbon Dioxide 29, Anion Gap 5.6, BUN 16, Creatinine 0.70 D, Estimated Creat Clear 37, Estimated GFR 110, Est GFR ( Amer) 133 D, Glucose 112 H, Calcium 8.1 L, Magnesium 1.6, Total Bilirubin 0.4, AST 21 D, ALT 12 D, Alkaline Phosphatase 90, Total Protein 5.3 L D, Albumin 2.7 L, Globulin 2.6, Albumin/Globulin Ratio 1.0 L I & O for Last 24 hours: Intake & Output 02/26/22 02/27/22 02/28/22 03/01/22 11:59 11:59 11:59 11:59 Intake Total 567 / 567 1852 / 1852 Output Total 1140 / 1140 Balance 567 / 567 712 / 712 Weight 130 lb 145 lb 14.395 oz 92 lb 3.2 oz Narrative: Cachectic. G-tube site looks good. Lungs have some rhonchi but otherwise clear. Heart rate regular. No edema or clubbing. Moves all extremities well. Very globally weak. Assessment and Plan (1) New onset seizure Status: Acute Category: Medical Code(s): R56.9 - Unspecified convulsions (2) Cachexia Status: Chronic Category: Medical Code(s): R64 - Cachexia (3) Schatzki's ring Status: Chronic Category: Medical Code(s): K22.2 - Esophageal obstruction (4) Severe protein-calorie malnutrition Status: Chronic Category: Medical Code(s): E43 - Unspecified severe protein-calorie malnutrition (5) Hypothyroid Status: Chronic Qualifiers: Hypothyroidism type: acquired Qualified Code(s): E03.9 - Hypothyroidism, unspecified Category: Medical Code(s): E03.9 - Hypothyroidism, unspecified (6) Clostridioides difficile infection Status: Acute Category: Med
--- NOTE | 2022-03-01 09:46 | DIET.NUTRFU ---
RD rounded with provider today, patient tolerating TF at 30ml/hr. Nursing plans to increase TF to reach goal rate of 60ml/hr. Patient had positive results for C-diff, vanco started. Possible discharge today will continue ABT tx at home, daughter in law has been providing TF regimen at home no discharge needs for TF. RD did provide contact information yesterday when spoke for any future questions.
--- NOTE | 2022-03-01 12:14 | PC.NURSE ---
Tube feed paused at this time d/t EEG picking up noise from pump
--- NOTE | 2022-03-01 15:11 | PC.NURSE ---
Pt has rested well this shift. Pt has been a q2h turn. Pressure relieving dressings remain in place on bony prominence. Tube feed goal has been reached at 60mL/hr. Residuals thus far have all been 0mL. Pt has had x2 mucousy BM's this shift. Pt is on RA and tolerating well. No other acute changes, will monitor.
[2022-03-01 15:23] VITALS: BP 113/49; PULSE 70; RESP 17; TEMP 36.5; O2SAT 100
--- NOTE | 2022-03-01 18:08 | PC.NURSE ---
Tubing on tube feed replaced and new bottle of PoolCubes 1.2 opened for use
[2022-03-01 20:00] VITALS: BP 104/56; PULSE 91; RESP 18; TEMP 36.6; O2SAT 99
[2022-03-02 04:00] VITALS: BP 129/56; PULSE 82; RESP 21; TEMP 36.4; O2SAT 99
--- NOTE | 2022-03-02 04:56 | PC.NURSE ---
Pr rested well t/o shift, remains A/O x3. Pt has had x3 loose BM's this shift. Using urinal independently. Tube feedings remain at 60mL/hr with 0mL residuals this shift. Remains on room air and tolerated well. Pt has been Q2H turn, with pressure dressings on bony prominence.
[2022-03-02 05:00] VITALS: BMI 17.4
[2022-03-02 07:24] LABS: Basophils % 0.4 % (0.1-2.0); Eosinophils # 0.1 K/mm3 (0.0-0.4); Eosinophils % 2.1 % (0.1-12.0); Lymphocytes # 0.5 K/mm3 (0.7-4.5); Lymphocytes % 16.9 % (10-50); Mean Corpuscular HGB Conc 33.4 g/dL (31.8-35.4); Mean Corpuscular Hemoglobin 30.3 pg (27.0-31.2); Mean Corpuscular Volume 90.8 fl (80-94); Mean Platelet Volume 8.1 fl (7.4-10.4); Monocytes # 0.2 K/mm3 (0.1-1.0); Monocytes % 7.7 % (1.7-9.3); Neutrophils % 72.9 % (37.0-80.0); Platelet Count 157 K/mm3 (142-424); Red Blood Count 3.86 M/mm3 (4.60-6.20); Red Cell Distribution Width 14.6 % (11.5-17.5); White Blood Count 2.7 K/mm3 (4.8-10.8)
[2022-03-02 07:25] LABS: Hemoglobin 11.7 g/dL (14.1-18.0)
[2022-03-02 07:32] LABS: Chloride 106 mmol/L (98-107); Potassium 3.6 mmoL/L (3.5-5.1); Sodium 138 mmol/L (136-145)
[2022-03-02 07:35] LABS: Anion Gap 5.6 mEq/L (5-15); Blood Urea Nitrogen 12 mg/dl (9-20); Carbon Dioxide 30 mmol/L (22.0-30.0); Creatinine Clearance Estimated 49 mL/min (50-200); Estimated Glomerular Filt Rate 131 ml/min (>60); GFR (African American) 159 ML/MIN (>60)
[2022-03-02 07:36] LABS: Calcium 8.2 mg/dl (8.4-10.2); Glucose 104 mg/dl (74-100)
[2022-03-02 08:00] VITALS: BP 136/59; PULSE 75; RESP 16; TEMP 36.4; O2SAT 99
--- NOTE | 2022-03-02 08:09 | HMH.DCSUM ---
General - General Admission date:: 02/27/22 Discharge date: 03/02/22 HPI HPI: Mr. 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 History obtained from prior notes, patient does not have recollection of events of yesterday on exam this morning. He reportedly was confused earlier in the day but that improved after obtaining barium swallow to assess the reason that he requires his G-tube and his inability to swallow. No report as of yet on the barium swallow. However on his way home, he was noted to become altered, nonresponsive, and had some shaking looking like a seizure. He was brought back to the hospital to the emergency room. On arrival he had an episode with seizure-like activity, deviating to the left with his eyes, and generalized shaking of his extremities. This occurred while he was in the CT scanner for a CT head (stroke alert). Episode lasted less than 30 seconds, was given 1 mg of IV Ativan. Vitals stable, no hypoxia, and had postictal state with somnolence and confusion. Work-up in the ER including labs and imaging. Noted to have a slight acidosis after his seizure. No other significant electrolyte disturbances. CT of his head unremarkable, consistent with previous imaging over the past 4 to 6 months. He was loaded with 1500 mg of Keppra and started on 500 mg twice daily. Attempt to transfer was made, [facility] was [facility] and patient accepted however no bed at this time. Would benefit from inpatient neurology. On evaluation this morning, patient is comfortable, supine on exam. Awakes to voice. Hard of hearing but answers questions in a difficult to understand voice due to being edentulous. Denies nausea, chest pain, shortness of breath. Hospital Course Hospital Course: Patient was admitted, seizure investigation was done with scanning, metabolic testing. This was unremarkable, except patient was found to have urinary tract infection and C. difficile colitis. Apparently was started on this with cephalexin intravenously and vancomycin orally. He did very nicely and diarrhea improved. He improved and got back to his baseline vis-?-vis mental status. Placed on Keppra therapy. Did well with this and this will be continued on discharge. He was kept overnight last night to ramp up his tube feeds and has been able to be successfully taken back up to 60 mL/h which is extremely This morning he is talkative, pleasant, back to his baseline. Will be discharged home on p.o. Levaquin and p.o. vancomycin for UTI and C. difficile respectively. Urine culture still pending, we will address this as an outpatient if this needs to be changed. Objective Vital signs: Temp Pulse Resp BP Pulse Ox 97.6 F 82 21 129/56 L 99 03/02/22 04:00 03/02/22 04:00 03/02/22 04:00 03/02/22 04:00 03/02/22 04:00 no acute distress, thin, cachectic, chronically ill appearing, cooperative - *Routine HEENT Exam Head: Present: normocephalic Eye: Present: EOMI, PERRL ENT: Present: mucous membranes moist - *Routine Neck Exam Present: supple - *Routine Respiratory Exam Present: CTA bilaterally - *Routine Cardiovascular Exam Present: RRR - *Routine Abdominal Exam Present: soft, normoactive bowel sounds. Absent: tenderness Comments: G-tube in good position. Abdomen is scaphoid. No masses - *Routine Extremities Exam Absent: cyanosis, clubbing, edema - *Routine Skin Exam Present: warm. Absent: rash - *Routine Neurological Exam Present: alert Patient globally weak. Weak vocal motor efforts and problem swallowing as previously noted. Consistent with his ongoing neurodegenerative process. - Detailed Eye Exam Eyelids: Bilateral normal inspection Results Labs on day of discharge: Labs from last 24 hours 03/02/22 0
--- NOTE | 2022-03-02 08:10 | DIET.NUTRFU ---
TF has reached goal rate, meeting 100% nutritional needs. Plans to discharge today with family, who provides care at home. Daughter in law familiar with TF , no education needed.
--- NOTE | 2022-03-02 09:58 | SW/DCPLANNER ---
Addendum entered by Lyn Noel 03/02/22 10:32: [facility] has called and stated that services will be resumed for this patient. Original Note: The plan for this patient is to discharge home today. I spoke with patient's family member (Sofi) that cares for patient at home. Sofi stated that the plan for this patient is to return home and resume home health services with [facility]. Patient information has been faxed to [facility] this AM. Sofi is aware that patient is medically stable for discharge.
--- NOTE | 2022-03-02 11:03 | INFXCTL.NOTE ---
SPOKE WITH SON AND STEPHY IN RE TO D/C INSTRUCTIONS. ADVISED STEPHY TO FOLLOW INSTRUCTIONS FOR TUBE FEEDS GIVEN BY THE [facility].
--- NOTE | 2022-03-03 13:08 | CARE MANAGER ---
Called and spoke with Mr. Arriola's daughter in law/career placement services counselor. She states that patient continues to not feel well, but that she feels that is to be expected. She stated that pharmacy is working with Dr. Pantoja's office to try and get the PO vanc today, [facility] is hoping to have it in by 1500. They have had to order liquid r/t PEG tube. No other needs known at this time.
== END 2022-03-02 10:58 | disposition home health service (06) | DRG 100 ==
LOC: ER 15:01 → 2ND 21:19
PROVIDERS: Internal Medicine Adolescent Medicine; Admitting Provider Emergency Medicine; Emergency Provider Emergency Medicine; PCP Internal Medicine Adolescent Medicine; Visit Provider Internal Medicine Adolescent Medicine
DX: R56.9 Unspecified convulsions (principal); E43 Unspecified severe protein-calorie malnutrition; Z68.1 Body mass index [BMI] 19.9 or less, adult; N39.0 Urinary tract infection, site not specified; A04.72 Enterocolitis due to Clostridium difficile, not specified as recurrent; Z93.1 Gastrostomy status; E03.9 Hypothyroidism, unspecified; I48.91 Unspecified atrial fibrillation; E78.5 Hyperlipidemia, unspecified; I10 Essential (primary) hypertension; I25.2 Old myocardial infarction; J44.9 Chronic obstructive pulmonary disease, unspecified; M19.90 Unspecified osteoarthritis, unspecified site
CPT/HCPCS: 36415; 70371; 70450; 70496; 70498; 80048; 80053; 81001; 82803; 83735; 84443; 84484; 85014; 85018; 85025; 85610; 85730; 87086; 87088; 87186; 87430; 87506; 92611; 95816; 99285; C9803; J0696; J1953; J3370; Q9967; U0003; U0005

== ENCOUNTER → 2022-03-23 09:33 | Outpatient (CLI) | payer MEDICARE, MEDICAID, SELFPAY ==
[2022-03-23 19:03] LABS: Adenovirus F 40/41, stool Not Detected (NotDetected); Astrovirus Not Detected (NotDetected); Campylobacter Not Detected (NotDetected); Cryptosporidium Not Detected (NotDetected); Cyclospora Cayetanesis Not Detected (NotDetected); Entamoeba histolytica Not Detected (NotDetected); Enteroaggregative E coli Not Detected (NotDetected); Enteropathogenic E coli Not Detected (NotDetected); Enterotoxigenic E coli Not Detected (NotDetected); Giardia lamblia Not Detected (NotDetected); Norovirus Not Detected (NotDetected); Plesimonas Shigalloides, PCR Not Detected (NotDetected); Rotavirus A Not Detected (NotDetected); Salmonella, PCR Not Detected (NotDetected); Sapovirus Not Detected (NotDetected); Shiga-like toxin E coli Not Detected (NotDetected); Shigella Enterovasive E coli Not Detected (NotDetected); Vibrio Cholerae Not Detected (NotDetected); Vibrio, PCR Not Detected (NotDetected); Yersinia Entercolitica, PCR Not Detected (NotDetected)
[2022-03-23 19:06] LABS: Clostridium Difficile A/B, PCR Detected (NotDetected)
== END ==
PROVIDERS: PCP Internal Medicine Adolescent Medicine; Visit Provider Nurse Practitioner Family
DX: A04.72 Enterocolitis due to Clostridium difficile, not specified as recurrent
CPT/HCPCS: 87506

== ENCOUNTER 2022-03-25 22:04 | Emergency (ER) | payer MEDICARE, MEDICAID, SELFPAY ==
[2022-03-25 22:07] VITALS: BP 117/64; PULSE 130; RESP 19; TEMP 37.1; O2SAT 97; BMI 16.2
--- NOTE | 2022-03-25 22:14 | HMH.EDNVD ---
ED Disposition Clinical Impression: Colitis due to Clostridioides difficile Disposition: Home, Self-Care Condition on Discharge: Fair Instructions: Clostridium difficile Infection, DI for Clostridioides difficile Infection Additional Instructions: Give 125 mg of vancomycin via the gastric tube 4 times a day. Follow-up with your primary care doctor in 1 to 2 days. Fill the prescriptions as prescribed. Return to the emergency department if you feel worse in any way. Your prescription for vancomycin prescribed on filled to soon as possible. Referrals: Wilder Pantoja MD [Primary Care Provider] - - Critical Care Critical Care Time: No Attestation: On , the high probability of a clinically significant, sudden or life threatening deterioration of the following system(s) required my full and direct attention, intervention and personal management. The time I documented below is in addition to time spent performing reported procedures but includes the following listed in this critical care notation. Medical Decision Making - Adrian Inquiry Pt receiving controlled substance: No Vital Signs: 03/25/22 22:07 03/25/22 22:30 03/25/22 23:00 Temperature 98.8 F Temperature Source Oral Pulse Rate 118 H 98 H Pulse Rate [Right] 130 H Respiratory Rate 19 17 13 Blood Pressure 116/61 142/67 H Blood Pressure [Right Arm] 117/64 Blood Pressure Mean [Right Arm] 81 Blood Pressure Source [Right Arm] Automatic Cuff 02 Sat by Pulse Oximetry 97 100 99 Oxygen Delivery Method Room Air Room Air Room Air - Lab Data Lab Results 03/25/22 22:33: WBC 5.2, RBC 4.82, Hgb 14.1, Hct 44.1, MCV 91.5, MCH 29.3, MCHC 32.1, RDW 14.9, Plt Count 210, MPV 8.3, Neut % (Auto) 77.9, Lymph % (Auto) 13.6, [place] % (Auto) 6.5, Eos % (Auto) 1.4, Baso % (Auto) 0.6, Neut # (Auto) 4.1, Lymph # (Auto) 0.7, [place] # (Auto) 0.3, Eos # (Auto) 0.1, Baso # (Auto) 0.0 03/25/22 22:33: Sodium 136, Potassium 3.8, Chloride 97 L, Carbon Dioxide 33 H, Anion Gap 9.8, BUN 16, Creatinine 0.80, Estimated Creat Clear 52, Estimated GFR 94, Est GFR ( Amer) 114, Glucose 103 H, Calcium 9.1, Total Bilirubin 0.2, AST 29, ALT 24, Alkaline Phosphatase 148 H, Total Protein 6.9 D, Albumin 3.6, Globulin 3.3 H, Albumin/Globulin Ratio 1.1, Lipase 40 03/25/22 22:33: Lactate 0.9 03/25/22 23:20: Urine Color Yellow, Urine Appearance Clear, Urine pH 7.0, Ur Specific [place] 1.015, Urine Protein Negative, Urine Glucose (UA) Negative, Urine Ketones Negative, Urine Blood Negative, Urine Nitrate Negative, Urine Bilirubin Negative, Urine Urobilinogen 0.2, Ur Leukocyte Esterase 3+ A, Urine WBC 20-50, Amorphous Sediment 2+ Result diagrams: 03/25/22 22:33 03/25/22 22:33 Orders (Tests/Meds): ED MEDICATIONS Generic Name Dose Route Start Last Admin Trade Name Freq PRN Reason Stop Dose Admin Sodium Chloride 1,000 mls @ 999 mls/hr 03/25/22 22:15 03/25/22 22:33 Sod Chlor 0.9% 1000ml Bag IV 03/25/22 23:15 999 mls/hr .Q1H1M TANA Administration Vancomycin HCl 125 mg 03/26/22 09:00 03/25/22 22:31 Vancomycin 500mg Vial PO 04/09/22 08:59 125 mg QID TANA Administration ORDERS Category Date Time Status Urine Culture Stat Micro 03/25/22 23:20 Received Medical Decision Narrative: The patient's work-up in the emergency department did not reveal any immediately life-threatening or dangerous conditions. The patient has a known diagnosis of C. difficile colitis. His white blood cell count is normal. He is a little bit tachycardic. His laboratory work-up is unremarkable. He was given vancomycin in the emergency department. He will be sent home with at least 7 more doses of vancomycin to be given at home. According to the patient's son, [facility] has ordered the medication prescribed to him on . Nausea/Vomiting/Diarrhea HPI - General Stated complaint: diarrhea, C-Diff-03/22 Time Seen by Provider: 03/25/22 22:14 Source of Information: Patient, Re
[2022-03-25 22:30] VITALS: BP 116/61; PULSE 118; RESP 17; O2SAT 100
[2022-03-25 22:31] VITALS: BMI 17.6
[2022-03-25 22:51] VITALS: BMI 16.2
[2022-03-25 22:56] LABS: Alanine Aminotransferase 24 U/L (12-78); Albumin Level 3.6 g/dl (3.5-5.0); Albumin/Globulin Ratio 1.1 (1.1-1.8); Alkaline Phosphatase 148 U/L (38-126); Anion Gap 9.8 mEq/L (5-15); Aspartate Amino Transferase 29 U/L (17-59); Bilirubin,Total 0.2 mg/dl (0.2-1.3); Blood Urea Nitrogen 16 mg/dl (9-20); Calcium 9.1 mg/dl (8.4-10.2); Carbon Dioxide 33 mmol/L (22.0-30.0); Chloride 97 mmol/L (98-107); Creatinine Clearance Estimated 52 mL/min (50-200); Estimated Glomerular Filt Rate 94 ml/min (>60); GFR (African American) 114 ML/MIN (>60); Globulin 3.3 g/dL (1.3-3.2); Glucose 103 mg/dl (74-100); Lipase 40 U/L (23-300); Potassium 3.8 mmoL/L (3.5-5.1); Sodium 136 mmol/L (136-145); Total Protein,Serum 6.9 g/dl (6.3-8.2)
[2022-03-25 23:00] VITALS: BP 142/67; PULSE 98; RESP 13; O2SAT 99
[2022-03-25 23:07] LABS: Basophils % 0.6 % (0.1-2.0); Eosinophils # 0.1 K/mm3 (0.0-0.4); Eosinophils % 1.4 % (0.1-12.0); Hematocrit 44.1 % (42.0-52.0); Hemoglobin 14.1 g/dL (14.1-18.0); Lactic Acid 0.9 mmol/L (0.7-2.1); Lymphocytes # 0.7 K/mm3 (0.7-4.5); Lymphocytes % 13.6 % (10-50); Mean Corpuscular HGB Conc 32.1 g/dL (31.8-35.4); Mean Corpuscular Hemoglobin 29.3 pg (27.0-31.2); Mean Corpuscular Volume 91.5 fl (80-94); Mean Platelet Volume 8.3 fl (7.4-10.4); Monocytes # 0.3 K/mm3 (0.1-1.0); Monocytes % 6.5 % (1.7-9.3); Neutrophils # 4.1 K/mm3 (1.8-7.8); Neutrophils % 77.9 % (37.0-80.0); Platelet Count 210 K/mm3 (142-424); Red Blood Count 4.82 M/mm3 (4.60-6.20); Red Cell Distribution Width 14.9 % (11.5-17.5); White Blood Count 5.2 K/mm3 (4.8-10.8)
[2022-03-25 23:24] LABS: Microscopic, Urine URINE MICROSCOPIC (MICROSCOPIC)
[2022-03-25 23:27] LABS: Appearance,Urine CLEAR (Clear); Bilirubin,Urine Negative (Negative); Blood, Urine Negative (Negative); Color,Urine YELLOW (Yellow); Glucose,Urine (UA) Negative (Negative); Ketones,Urine Negative (Negative); Leukocyte Esterase,Urine 3+ (Negative); Nitrate,Urine Negative (Negative); Protein,Urine Negative (Negative); Specific Gravity, Urine 1.015 (1.005-1.030); Urobilinogen,Urine 0.2 EU/dl (0.2)
[2022-03-25 23:32] LABS: Amorphous Sediment,Urine 2+ /lpf; WBC,Urine 20-50 #/hpf (0-3)
[2022-03-26 00:04] VITALS: BP 140/68; PULSE 95; RESP 18; TEMP 36.8; O2SAT 99
== END 2022-03-26 00:06 | disposition home or self-care (01) ==
PROVIDERS: Emergency Provider Emergency Medicine; PCP Internal Medicine Adolescent Medicine
DX: A04.72 Enterocolitis due to Clostridium difficile, not specified as recurrent (principal); R19.7 Diarrhea, unspecified; I48.91 Unspecified atrial fibrillation; J44.9 Chronic obstructive pulmonary disease, unspecified; E78.5 Hyperlipidemia, unspecified; I10 Essential (primary) hypertension
CPT/HCPCS: 80053; 81001; 83605; 83690; 85025; 87086; 96360; 96361; 99284; J3370

== ENCOUNTER 2022-04-07 22:59 | Emergency (ER) | payer MEDICARE, MEDICAID, SELFPAY ==
[2022-04-07 22:58] VITALS: BP 131/73; PULSE 71; RESP 17; TEMP 36.6; O2SAT 100; BMI 17.6
--- NOTE | 2022-04-07 23:20 | CT_ITS ---
PROCEDURE INFORMATION: Exam: CT Head Without Contrast Exam date and time: 04/07/2022 11:40 PM Age: 76 years old Clinical indication: Visual disturbance; Additional info: Vision changes TECHNIQUE: Imaging protocol: Computed tomography of the head without contrast. Radiation optimization: All CT scans at this facility use at least one of these dose optimization techniques: automated exposure control; mA and/or kV adjustment per patient size (includes targeted exams where dose is matched to clinical indication); or iterative reconstruction. COMPARISON: CT HEAD/BRAIN WO CON 02/27/2022 11:47 AM FINDINGS: Brain: Global cerebral volume loss. No acute intracranial hemorrhage. No intra- or extra-axial fluid collection. No mass effect or midline shift. Periventricular and subcortical white matter hypodensities, compatible with chronic hypertensive microvascular disease. No loss of ramos-white matter differentiation. Cerebral ventricles: No hydrocephalus. Paranasal sinuses: No air fluid levels in the visualized paranasal sinuses. Mastoid air cells: Left mastoid effusion, nonspecific and unchanged from prior exam on 02/27/2022. Orbital cavities: Bilateral lens replacement. Paucity of retrobulbar fat in the bilateral orbits resulting in deeply seated globes and compressive bowing/curvature of the bilateral ocular nerves. Bilateral globes are intact. No evidence of retrobulbar inflammatory changes or mass occupying lesion. Bones/joints: No acute calvarial or skull base fracture. Soft tissues: Unremarkable. IMPRESSION: 1. No evidence of acute intracranial abnormality. 2. Paucity of retrobulbar fat in the bilateral orbits resulting in deeply seated globes and compressive bowing/curvature of the bilateral ocular nerves. 3. White matter changes, compatible with chronic hypertensive microvascular disease. 4. Left mastoid effusion, nonspecific and unchanged from prior exam on 02/27/2022. 5. Global cerebral volume loss.
[2022-04-07 23:27] LABS: Basophils % 0.8 % (0.1-2.0); Eosinophils # 0.1 K/mm3 (0.0-0.4); Eosinophils % 1.4 % (0.1-12.0); Hemoglobin 13.7 g/dL (14.1-18.0); Lymphocytes # 0.7 K/mm3 (0.7-4.5); Lymphocytes % 16.6 % (10-50); Mean Corpuscular HGB Conc 32.8 g/dL (31.8-35.4); Mean Corpuscular Hemoglobin 28.6 pg (27.0-31.2); Mean Corpuscular Volume 87.3 fl (80-94); Mean Platelet Volume 7.5 fl (7.4-10.4); Monocytes # 0.2 K/mm3 (0.1-1.0); Monocytes % 5.1 % (1.7-9.3); Neutrophils # 3.4 K/mm3 (1.8-7.8); Neutrophils % 76.1 % (37.0-80.0); Platelet Count 179 K/mm3 (142-424); Red Blood Count 4.81 M/mm3 (4.60-6.20); Red Cell Distribution Width 14.8 % (11.5-17.5); White Blood Count 4.4 K/mm3 (4.8-10.8)
[2022-04-07 23:29] VITALS: BP 136/70; PULSE 83; O2SAT 100
[2022-04-07 23:32] LABS: Alanine Aminotransferase 42 U/L (12-78); Albumin Level 3.7 g/dl (3.5-5.0); Albumin/Globulin Ratio 1.2 (1.1-1.8); Alkaline Phosphatase 134 U/L (38-126); Anion Gap 9.8 mEq/L (5-15); Aspartate Amino Transferase 43 U/L (17-59); Bilirubin,Total 0.4 mg/dl (0.2-1.3); Blood Urea Nitrogen 17 mg/dl (9-20); Calcium 9.2 mg/dl (8.4-10.2); Carbon Dioxide 33 mmol/L (22.0-30.0); Chloride 97 mmol/L (98-107); Creatinine Clearance Estimated 52 mL/min (50-200); Estimated Glomerular Filt Rate 94 ml/min (>60); GFR (African American) 114 ML/MIN (>60); Globulin 3.1 g/dL (1.3-3.2); Glucose 98 mg/dl (74-100); Potassium 3.8 mmoL/L (3.5-5.1); Sodium 136 mmol/L (136-145); Total Protein,Serum 6.8 g/dl (6.3-8.2)
[2022-04-07 23:38] LABS: C-Reactive Protein 2.7 mg/L (0-4)
[2022-04-07 23:51] LABS: Erythrocyte Sedimentation Rate 25 mm/hr (0-20); T4 (Thyroxine) 12.7 ug/dl (5.53-11.0)
--- NOTE | 2022-04-07 23:59 | HMH.EDEYEP ---
ED Disposition Clinical Impression: Visual symptoms Disposition: Home, Self-Care Condition on Discharge: Fair Instructions: DI for Eye Pain Additional Instructions: see vision center and continue present sx Referrals: Provider,Referral, [Referring] - - Critical Care Critical Care Time: No Attestation: On 04/07/22, the high probability of a clinically significant, sudden or life threatening deterioration of the following system(s) required my full and direct attention, intervention and personal management. The time I documented below is in addition to time spent performing reported procedures but includes the following listed in this critical care notation. Medical Decision Making - Medical Records Medical records reviewed: Yes: I reviewed the patient's medical records. - Adrian Inquiry Pt receiving controlled substance: No Vital Signs: 04/07/22 22:58 04/07/22 23:29 04/08/22 00:00 Temperature 97.8 F Temperature Source Oral Pulse Rate 83 81 Pulse Rate [Right] 71 Respiratory Rate 17 Blood Pressure 136/70 133/73 Blood Pressure [Right Arm] 131/73 Blood Pressure Mean [Right Arm] 92 Blood Pressure Source [Right Arm] Automatic Cuff 02 Sat by Pulse Oximetry 100 100 100 Oxygen Delivery Method Room Air Room Air Room Air - Lab Data Lab results reviewed: Yes: I reviewed the patient's lab results. Lab Results 04/07/22 23:15: WBC 4.4 L, RBC 4.81, Hgb 13.7 L, Hct 42.0, MCV 87.3, MCH 28.6, MCHC 32.8, RDW 14.8, Plt Count 179, MPV 7.5, Neut % (Auto) 76.1, Lymph % (Auto) 16.6, [place] % (Auto) 5.1, Eos % (Auto) 1.4, Baso % (Auto) 0.8, Neut # (Auto) 3.4, Lymph # (Auto) 0.7, [place] # (Auto) 0.2, Eos # (Auto) 0.1, Baso # (Auto) 0.0 04/07/22 23:15: Sodium 136, Potassium 3.8, Chloride 97 L, Carbon Dioxide 33 H, Anion Gap 9.8, BUN 17, Creatinine 0.80, Estimated Creat Clear 52, Estimated GFR 94, Est GFR ( Amer) 114, Glucose 98, Calcium 9.2, Total Bilirubin 0.4, AST 43, ALT 42, Alkaline Phosphatase 134 H, C-Reactive Protein 2.7, Total Protein 6.8, Albumin 3.7, Globulin 3.1, Albumin/Globulin Ratio 1.2, TSH 3.26, Thyroxine (T4) 12.7 H 04/07/22 23:15: ESR 25 H 04/07/22 23:15: Procalcitonin 0.120 04/08/22 00:40: Urine Color Yellow, Urine Appearance Clear, Urine pH 7.5, Ur Specific [place] 1.015, Urine Protein Negative, Urine Glucose (UA) Negative, Urine Ketones Negative, Urine Blood Negative, Urine Nitrate Negative, Urine Bilirubin Negative, Urine Urobilinogen 0.2, Ur Leukocyte Esterase 2+ A, Urine RBC Cancelled, Urine WBC 5-10, Ur Squamous Epith Cells Cancelled, Ur Transition Epith Cell Cancelled, Ur Renal Epithelial Cell Cancelled, Calcium Carbonate Cryst Cancelled, Calcium Phosphate Cryst Cancelled, Calcium Oxalate Crystal Cancelled, Cystine Crystals Cancelled, Uric Acid Crystals Cancelled, Triple Phos Crystals Cancelled, Tyrosine Crystals Cancelled, Other Crystals Cancelled, Amorphous Sediment Cancelled, Urine Bacteria Cancelled, Fatty Casts Cancelled, Hyaline Casts Cancelled, Fine Granular Casts Cancelled, Coarse Granular Casts Cancelled, Waxy Casts Cancelled, RBC Casts Cancelled, WBC Casts Cancelled, Other Casts Cancelled, Urine Mucus Cancelled, Urine Trichomonas Cancelled, Urine Yeast Cancelled, Urine Sperm Cancelled Result diagrams: 04/07/22 23:15 04/07/22 23:15 Orders (Tests/Meds): ED MEDICATIONS Generic Name Dose Route Start Last Admin Trade Name Can PRN Reason Stop Dose Admin Sodium Chloride 1,000 mls @ 999 mls/hr 04/07/22 23:45 04/08/22 00:04 Sod Chlor 0.9% 1000ml Bag IV 04/08/22 00:45 999 mls/hr .Q1H1M TANA Administration ORDERS Category Date Time Status Urine Culture(cathed specimen) Stat Micro 04/08/22 00:40 Received - CT Data CT Scan: Head Time Received: 02:[address] Reviewed: Yes: I have viewed the radiologist's interpretation Preliminary Findings: Abnormal (see report ) Medical Decision Narrative: stable exam and no def vision issues has stable labs and prev urine
[2022-04-08] VITALS: BP 133/73; PULSE 81; O2SAT 100
[2022-04-08 00:06] LABS: Thyroid Stimulating Hormone 3.26 uIU/mL (0.465-4.68)
[2022-04-08 00:47] LABS: Microscopic,Cath URINE MICROSCOPIC (MICROSCOPIC)
[2022-04-08 00:49] LABS: Appearance,Urine/Cath CLEAR (Clear); Bilirubin,Cath Negative (Negative); Blood, Urine/Cath Negative (Negative); Color,Urine/Cath YELLOW (Yellow); Glucose,Urine/Cath (UA) Negative (Negative); Ketones,Urine/Cath Negative (Negative); Leukocyte Esterase,Cath 2+ (Negative); Nitrate,Cath Negative (Negative); PH,Urine/Cath 7.5 (5.0-8.5); Protein,Urine/Cath Negative (Negative); Specific Gravity, Urine/Cath 1.015 (1.005-1.030); Urobilinogen,Cath 0.2 EU/dl (0.2)
[2022-04-08 00:52] LABS: Amorphous Sediment,Ur/Cath 2+ /lpf
--- NOTE | 2022-04-08 02:43 | PC.NURSE ---
called pt's son, Maninder Arriola, to let him know POC adn that he will be d/c shortly.
[2022-04-08 04:09] VITALS: BP 130/70; PULSE 80; RESP 18; TEMP 36.8; O2SAT 99
== END 2022-04-08 04:11 | disposition home or self-care (01) ==
PROVIDERS: Emergency Provider Emergency Medicine; PCP Internal Medicine Adolescent Medicine
DX: H53.8 Other visual disturbances (principal); R19.7 Diarrhea, unspecified; D64.9 Anemia, unspecified; I10 Essential (primary) hypertension; I25.2 Old myocardial infarction; I48.91 Unspecified atrial fibrillation; E78.5 Hyperlipidemia, unspecified; E03.9 Hypothyroidism, unspecified; M19.90 Unspecified osteoarthritis, unspecified site; H26.9 Unspecified cataract; H40.9 Unspecified glaucoma; Z87.891 Personal history of nicotine dependence; Z85.9 Personal history of malignant neoplasm, unspecified
CPT/HCPCS: 70450; 80053; 81001; 84145; 84436; 84443; 85025; 85651; 86140; 87086; 96360; 99285

== ENCOUNTER 2022-04-12 22:39 | Emergency (ER) | payer MEDICARE, MEDICAID, SELFPAY ==
[2022-04-12 22:41] VITALS: BP 164/91; PULSE 75; RESP 18; TEMP 36.8; O2SAT 98; BMI 17.1
[2022-04-12 23:00] VITALS: BP 107/60; PULSE 107; O2SAT 99
[2022-04-12 23:30] VITALS: BP 121/65; PULSE 102; O2SAT 99
[2022-04-13] VITALS: BP 136/69; PULSE 104; O2SAT 99
--- NOTE | 2022-04-13 00:11 | PC.NURSE ---
Patient spoke with doctor, appears to be in a very pleasant mood. Pt continues to be alert oriented and stable. Blood glucose checked per md order. BG was 91.
[2022-04-13 00:16] LABS: POC Glucose,Bedside 97 (70-110)
--- NOTE | 2022-04-13 00:21 | HMH.EDGENADL ---
ED Disposition Clinical Impression: UTI (urinary tract infection), Conjunctivitis Disposition: Home, Self-Care Condition on Discharge: Good Instructions: Urinary Tract Infection Additional Instructions: At this time was felt you are safe to be discharged home. Please take your medication as prescribed. If new or worsening symptoms do not hesitate to return to the emergency department. Please follow-up with your family doctor within 5 days for continued evaluation. Prescriptions: Nitrofurantoin Monohyd/M-Cryst [Macrobid 100 mg Capsule] 100 mg FEED TUBE BID 7 Days #14 cap [facility]: [id number] Polymyxin B Sulf/Trimethoprim [Polytrim Eye Drops] 10 ml OP DIRECTED #1 ml Transmission Status: Pending to [facility] Referrals: Wilder Pantoja MD [Primary Care Provider] - - Critical Care Critical Care Time: No Attestation: On 04/12/22, the high probability of a clinically significant, sudden or life threatening deterioration of the following system(s) required my full and direct attention, intervention and personal management. The time I documented below is in addition to time spent performing reported procedures but includes the following listed in this critical care notation. Medical Decision Making - Adrian Inquiry Pt receiving controlled substance: No Vital Signs: 04/12/22 22:41 04/12/22 23:00 04/12/22 23:30 Temperature 98.2 F Temperature Source Oral Pulse Rate 107 H 102 H Pulse Rate [Apical] 75 Respiratory Rate 18 Blood Pressure 107/60 L 121/65 Blood Pressure [Right Arm] 164/91 H Blood Pressure Mean [Right Arm] 115 Blood Pressure Source [Right Arm] Automatic Cuff Blood Pressure Position [Right Arm] Sitting 02 Sat by Pulse Oximetry 98 99 99 Oxygen Delivery Method Room Air Room Air Room Air 04/13/22 00:00 04/13/22 00:30 04/13/22 01:00 Temperature Temperature Source Pulse Rate 104 H 107 H 101 H Pulse Rate [Apical] Respiratory Rate Blood Pressure 136/69 133/74 142/76 H Blood Pressure [Right Arm] Blood Pressure Mean [Right Arm] Blood Pressure Source [Right Arm] Blood Pressure Position [Right Arm] 02 Sat by Pulse Oximetry 99 98 98 Oxygen Delivery Method Room Air Room Air Room Air 04/13/22 01:30 Temperature Temperature Source Pulse Rate 97 H Pulse Rate [Apical] Respiratory Rate Blood Pressure 122/64 Blood Pressure [Right Arm] Blood Pressure Mean [Right Arm] Blood Pressure Source [Right Arm] Blood Pressure Position [Right Arm] 02 Sat by Pulse Oximetry 99 Oxygen Delivery Method Room Air - Lab Data Lab Results 04/13/22 00:10: POC Glucose 97 04/13/22 02:00: Urine Color Yellow, Urine Appearance Clear, Urine pH 7.0, Ur Specific [place] 1.015, Urine Protein 1+, Urine Glucose (UA) Negative, Urine Ketones Negative, Urine Blood 3+, Urine Nitrate Negative, Urine Bilirubin Negative, Urine Urobilinogen 0.2, Ur Leukocyte Esterase 3+ A, Urine RBC 5-10, Urine WBC 10-20, Ur Squamous Epith Cells None, Urine Bacteria Trace, Urine Yeast 1+ Orders (Tests/Meds): ED MEDICATIONS Discontinued Medications Generic Name Dose Route Start Last Admin Trade Name Freq PRN Reason Stop Dose Admin Erythromycin 0.5 gm 04/13/22 00:09 04/13/22 00:13 Erythromycin Base 1 Gm Oint...G. OP 04/13/22 00:10 0.5 gm ONCE ONE Administration ORDERS Category Date Time Status Diarrhea 23 Panel, PCR Stat Lab 04/13/22 03:20 Received Urine Culture Stat Micro 04/13/22 02:00 Received Medical Decision Narrative: Intermedius 77-year-old male who presents to the emergency department due to concern for pending seizure-like activity. Patient's hemodynamically stable nontoxic-appearing upon arrival, fingerstick blood glucose is acceptable. Patient is alert and oriented to person and place which is his baseline. Patient has no acute complaints. He denies seizure-like activity and states that his foaming at the mouth
[2022-04-13 00:30] VITALS: BP 133/74; PULSE 107; O2SAT 98
[2022-04-13 01:00] VITALS: BP 142/76; PULSE 101; O2SAT 98
[2022-04-13 01:30] VITALS: BP 122/64; PULSE 97; O2SAT 99
--- NOTE | 2022-04-13 02:11 | PC.NURSE ---
pt son updated on POC and test results
[2022-04-13 02:31] LABS: Microscopic, Urine URINE MICROSCOPIC (MICROSCOPIC)
[2022-04-13 02:43] LABS: Appearance,Urine CLEAR (Clear); Bilirubin,Urine Negative (Negative); Blood, Urine 3+ (Negative); Color,Urine YELLOW (Yellow); Glucose,Urine (UA) Negative (Negative); Ketones,Urine Negative (Negative); Leukocyte Esterase,Urine 3+ (Negative); Nitrate,Urine Negative (Negative); Protein,Urine 1+ (Negative); Specific Gravity, Urine 1.015 (1.005-1.030); Urobilinogen,Urine 0.2 EU/dl (0.2)
[2022-04-13 03:13] LABS: Bacteria,Urine Trace /lpf; Yeast,Urine 1+ /lpf
--- NOTE | 2022-04-13 03:47 | PC.NURSE ---
Patient assisted to bedside commode. Pt had a bm that was diarrhea, sent stool sample to lab. Patient was assisted back to bed, brief was soiled so patient was cleaned and given a warm blanket. During skin assessment it was noted that patient had an area of redness on his coccyx. Patient was turned on his left side and a pillow was placed to support patient and decrease pressure to coccyx. Patient is currently resting in bed.
[2022-04-13 03:51] LABS: Adenovirus F 40/41, stool Not Detected (NotDetected); Astrovirus Not Detected (NotDetected); Campylobacter Not Detected (NotDetected); Clostridium Difficile A/B, PCR Not Detected (NotDetected); Cryptosporidium Not Detected (NotDetected); Cyclospora Cayetanesis Not Detected (NotDetected); Entamoeba histolytica Not Detected (NotDetected); Enteroaggregative E coli Not Detected (NotDetected); Enteropathogenic E coli Not Detected (NotDetected); Enterotoxigenic E coli Not Detected (NotDetected); Giardia lamblia Not Detected (NotDetected); Norovirus Not Detected (NotDetected); Plesimonas Shigalloides, PCR Not Detected (NotDetected); Rotavirus A Not Detected (NotDetected); Salmonella, PCR Not Detected (NotDetected); Sapovirus Not Detected (NotDetected); Shiga-like toxin E coli Not Detected (NotDetected); Shigella Enterovasive E coli Not Detected (NotDetected); Vibrio Cholerae Not Detected (NotDetected); Vibrio, PCR Not Detected (NotDetected); Yersinia Entercolitica, PCR Not Detected (NotDetected)
[2022-04-13 04:18] VITALS: BP 120/62; PULSE 92; RESP 18; TEMP 36.8; O2SAT 99
== END 2022-04-13 04:29 | disposition home or self-care (01) ==
PROVIDERS: Emergency Provider Emergency Medicine; PCP Internal Medicine Adolescent Medicine
DX: N39.0 Urinary tract infection, site not specified (principal); H10.9 Unspecified conjunctivitis; Z79.899 Other long term (current) drug therapy; I48.91 Unspecified atrial fibrillation; J44.9 Chronic obstructive pulmonary disease, unspecified; E78.5 Hyperlipidemia, unspecified; I10 Essential (primary) hypertension; I25.2 Old myocardial infarction; Z85.9 Personal history of malignant neoplasm, unspecified; M19.90 Unspecified osteoarthritis, unspecified site; D64.9 Anemia, unspecified; E03.9 Hypothyroidism, unspecified
CPT/HCPCS: 81001; 82962; 87086; 87088; 87507; 99283

== ENCOUNTER 2022-04-14 18:44 | Observation (INO) | payer MEDICARE, MEDICAID, SELFPAY ==
[2022-04-14] VITALS (11 sets, daily range): BP systolic 125–142; BP diastolic 64–86; PULSE 76–98; RESP 13–36; TEMP 36.7–36.8; O2SAT 98–100; BMI 14.8; BMI 17.2
--- NOTE | 2022-04-14 18:59 | ECG_ITS ---
APPROVED REPORT Exam: Resting ECG HR:91 bpm ECG Measurements Heart Rate 91 AXES NH 189 P 89 QRSd 117 QRS 82 QT 388 T 84 QTc 437 Conclusion SINUS RHYTHM Previously noted Inferior Q wave of questionable significance Old anterolateral changes ABNORMAL ECG UNCONFIRMED REPORT Electronically signed by : Wilder Pantoja MD 04/16/2022 08:05:13
--- NOTE | 2022-04-14 19:06 | PC.NURSE ---
Seizure pads in place
[2022-04-14 19:10] LABS: Basophils % 0.5 % (0.1-2.0); Eosinophils % 1.1 % (0.1-12.0); Hematocrit 42.1 % (42.0-52.0); Hemoglobin 13.2 g/dL (14.1-18.0); Lymphocytes # 0.6 K/mm3 (0.7-4.5); Lymphocytes % 16.2 % (10-50); Mean Corpuscular HGB Conc 31.3 g/dL (31.8-35.4); Mean Corpuscular Hemoglobin 28.2 pg (27.0-31.2); Mean Corpuscular Volume 90.2 fl (80-94); Mean Platelet Volume 8.6 fl (7.4-10.4); Monocytes # 0.2 K/mm3 (0.1-1.0); Monocytes % 5.4 % (1.7-9.3); Neutrophils # 2.7 K/mm3 (1.8-7.8); Neutrophils % 76.8 % (37.0-80.0); Platelet Count 167 K/mm3 (142-424); Red Blood Count 4.67 M/mm3 (4.60-6.20); Red Cell Distribution Width 15.5 % (11.5-17.5); White Blood Count 3.5 K/mm3 (4.8-10.8)
[2022-04-14 19:12] LABS: Chloride 99 mmol/L (98-107); Sodium 136 mmol/L (136-145)
--- NOTE | 2022-04-14 19:13 | CT_ITS ---
PROCEDURE INFORMATION: Exam: CT Head Without Contrast Exam date and time: 04/14/2022 7:24 PM Age: 77 years old Clinical indication: Other: Seizure TECHNIQUE: Imaging protocol: Computed tomography of the head without contrast. Radiation optimization: All CT scans at this facility use at least one of these dose optimization techniques: automated exposure control; mA and/or kV adjustment per patient size (includes targeted exams where dose is matched to clinical indication); or iterative reconstruction. COMPARISON: CT HEAD/BRAIN WO CON 04/07/2022 11:40 PM FINDINGS: Brain: Moderate chronic brain volume loss and chronic small vessel ischemic changes. Cerebral ventricles: No ventriculomegaly. Paranasal sinuses: Visualized sinuses are unremarkable. No fluid levels. Mastoid air cells: Moderate bilateral mastoid effusions. Orbital cavities: Status post bilateral cataract surgery. Bones/joints: Unremarkable. No acute fracture. Soft tissues: Unremarkable. IMPRESSION: No acute intracranial findings.
[2022-04-14 19:15] LABS: Alanine Aminotransferase 39 U/L (12-78); Albumin Level 3.9 g/dl (3.5-5.0); Albumin/Globulin Ratio 1.3 (1.1-1.8); Alkaline Phosphatase 182 U/L (38-126); Aspartate Amino Transferase 42 U/L (17-59); Bilirubin,Total 0.3 mg/dl (0.2-1.3); Blood Urea Nitrogen 22 mg/dl (9-20); Carbon Dioxide 32 mmol/L (22.0-30.0); Creatinine Clearance Estimated 46 mL/min (50-200); Estimated Glomerular Filt Rate 94 ml/min (>60); GFR (African American) 113 ML/MIN (>60); Total Protein,Serum 6.9 g/dl (6.3-8.2)
[2022-04-14 19:16] LABS: Calcium 9.3 mg/dl (8.4-10.2); Glucose 113 mg/dl (74-100)
--- NOTE | 2022-04-14 19:20 | PC.NURSE ---
RADIOLOGY NOTIFIED OF HEAD CT
[2022-04-14 19:27] LABS: Microscopic, Urine URINE MICROSCOPIC (MICROSCOPIC)
[2022-04-14 19:33] LABS: Appearance,Urine CLEAR (Clear); Bilirubin,Urine Negative (Negative); Blood, Urine Negative (Negative); Color,Urine YELLOW (Yellow); Glucose,Urine (UA) Negative (Negative); Ketones,Urine Negative (Negative); Leukocyte Esterase,Urine 2+ (Negative); Nitrate,Urine POSITIVE (Negative); Protein,Urine Negative (Negative); Specific Gravity, Urine 1.015 (1.005-1.030); Urobilinogen,Urine 0.2 EU/dl (0.2)
[2022-04-14 20:00] LABS: Bacteria,Urine 1+ /lpf; RBC,Urine Occasional #/hpf (0-3)
--- NOTE | 2022-04-14 20:50 | PC.NURSE ---
Dr. Holliday pageramila
[2022-04-14 20:51] LABS: Troponin I < 0.01 ng/ml (0.00-0.034)
--- NOTE | 2022-04-14 20:53 | PC.NURSE ---
Biju and myself turned pt onto his right side at this time. Asked pt if he needed anything, advised he did not at this time
--- NOTE | 2022-04-14 21:00 | PC.NURSE ---
Dr. Fanny huynh
--- NOTE | 2022-04-14 21:00 | PC.NURSE ---
Spoke with family on phone about POC. Advised I would give her a call back after ER MD spoke with Dr. Pantoja who is pt pcp. Dr. Fanny huynh
--- NOTE | 2022-04-14 21:01 | PC.NURSE ---
speaking with Dr. Escobedo
--- NOTE | 2022-04-14 21:26 | HMH.EDGENADL ---
ED Disposition Clinical Impression: UTI (urinary tract infection), Seizure, Debility Disposition: Admitted As Inpatient Condition on Discharge: Good - Critical Care Critical Care Time: No Attestation: On 04/14/22, the high probability of a clinically significant, sudden or life threatening deterioration of the following system(s) required my full and direct attention, intervention and personal management. The time I documented below is in addition to time spent performing reported procedures but includes the following listed in this critical care notation. Medical Decision Making - Adrian Inquiry Pt receiving controlled substance: No Vital Signs: 04/14/22 18:45 04/14/22 19:00 04/14/22 19:35 Temperature 98.2 F Temperature Source Oral Pulse Rate 84 98 H Pulse Rate [Right Radial] 93 H Respiratory Rate 15 36 H 13 Blood Pressure 135/86 137/75 Blood Pressure [Right Arm] 132/71 Blood Pressure Mean Blood Pressure Mean [Right Arm] 91 Blood Pressure Source [Right Arm] Automatic Cuff Blood Pressure Position [Right Arm] Sitting 02 Sat by Pulse Oximetry 98 98 100 Oxygen Delivery Method Room Air Room Air Room Air 04/14/22 20:00 04/14/22 20:30 04/14/22 21:00 Temperature Temperature Source Pulse Rate 85 82 Pulse Rate [Right Radial] Respiratory Rate 24 20 15 Blood Pressure 127/73 125/64 136/66 Blood Pressure [Right Arm] Blood Pressure Mean Blood Pressure Mean [Right Arm] Blood Pressure Source [Right Arm] Blood Pressure Position [Right Arm] 02 Sat by Pulse Oximetry 99 99 99 Oxygen Delivery Method Room Air Room Air 04/14/22 21:30 04/14/22 21:53 04/14/22 22:00 Temperature 98.2 F 98.0 F Temperature Source Oral Oral Pulse Rate 76 82 78 Pulse Rate [Right Radial] 79 Respiratory Rate 21 17 16 Blood Pressure 142/68 H 136/66 136/65 Blood Pressure [Right Arm] 137/68 Blood Pressure Mean 82 88 Blood Pressure Mean [Right Arm] 91 Blood Pressure Source [Right Arm] Automatic Cuff Blood Pressure Position [Right Arm] 02 Sat by Pulse Oximetry 100 100 Oxygen Delivery Method Room Air Room Air 04/14/22 22:02 04/14/22 22:15 Temperature Temperature Source Pulse Rate 79 Pulse Rate [Right Radial] Respiratory Rate Blood Pressure 132/65 Blood Pressure [Right Arm] Blood Pressure Mean 85 Blood Pressure Mean [Right Arm] Blood Pressure Source [Right Arm] Blood Pressure Position [Right Arm] 02 Sat by Pulse Oximetry 100 Oxygen Delivery Method Room Air - Lab Data Lab Results 04/14/22 18:52: WBC 3.5 L, RBC 4.67, Hgb 13.2 L, Hct 42.1, MCV 90.2, MCH 28.2, MCHC 31.3 L, RDW 15.5, Plt Count 167, MPV 8.6, Neut % (Auto) 76.8, Lymph % (Auto) 16.2, [place] % (Auto) 5.4, Eos % (Auto) 1.1, Baso % (Auto) 0.5, Neut # (Auto) 2.7, Lymph # (Auto) 0.6 L, [place] # (Auto) 0.2, Eos # (Auto) 0.0, Baso # (Auto) 0.0 04/14/22 18:52: Sodium 136, Potassium 4.0, Chloride 99, Carbon Dioxide 32 H, Anion Gap 9.0, BUN 22 H, Creatinine 0.80, Estimated Creat Clear 46, Estimated GFR 94, Est GFR ( Amer) 113, Glucose 113 H, Calcium 9.3, Total Bilirubin 0.3, AST 42, ALT 39, Alkaline Phosphatase 182 H, Total Protein 6.9, Albumin 3.9, Globulin 3.0, Albumin/Globulin Ratio 1.3 04/14/22 18:52: Troponin I < 0.01 04/14/22 19:22: Urine Color Yellow, Urine Appearance Clear, Urine pH 6.0, Ur Specific [place] 1.015, Urine Protein Negative, Urine Glucose (UA) Negative, Urine Ketones Negative, Urine Blood Negative, Urine Nitrate Positive, Urine Bilirubin Negative, Urine Urobilinogen 0.2, Ur Leukocyte Esterase 2+ A, Urine RBC Occasional, Urine WBC 5-10, Ur Squamous Epith Cells 3-5, Urine Bacteria 1+ 04/14/22 21:25: SARS-CoV-2 (PCR) Not detected, Influenza A Untype (PCR) Not detected, Influenza Type B (PCR) Not detected Result diagrams: 04/14/22 18:52 04/14/22 18:52 Orders (Tests/Meds): ED MEDICATIONS Generic Name Dose Route Start Last Admin Trade Name Freq PRN Reason Stop Dose Admin Acetami
[2022-04-14 21:30] LABS: Coronavirus 19, PCR Not Detected (NotDetected); Influenza A, PCR Not Detected (NotDetected); Influenza B, PCR Not Detected (NotDetected)
--- NOTE | 2022-04-14 21:39 | PC.NURSE ---
Called and spoke with family and updated them on POC and that pt was going to be admitted. Everyone agreeable with POC.
--- NOTE | 2022-04-14 22:13 | PC.NURSE ---
Addendum entered by SALVATORE Babcock 04/15/22 05:15: PT ARRIVED VIA STRETCHER Original Note: PT ARRIVED VIA WHEEL CHAIR AT THIS TIME
[2022-04-15 00:19] LABS: Troponin I < 0.01 ng/ml (0.00-0.034)
[2022-04-15 02:49] LABS: Troponin I < 0.01 ng/ml (0.00-0.034)
[2022-04-15 04:00] VITALS: BP 126/58; PULSE 77; RESP 16; TEMP 36.7; O2SAT 100
--- NOTE | 2022-04-15 04:27 | PC.NURSE ---
Pt is alert and oriented x4. Pt lung sounds are clear. Pt is hard of hearing, wears right hearing aid only. Pt answers all questions appropriately. Pt has cochran in place, dark yellow urine with sediment noted. Pt has not complained of any pain this shift. Pt has been sleeping since arriving to the floor. Pt O2 sat>95% on room air. Pt bowel sounds are active in all quadrants. Pt has no skin issues noted. Q2 turn.
[2022-04-15 07:05] LABS: Eosinophils # 0.1 K/mm3 (0.0-0.4); Eosinophils % 1.2 % (0.1-12.0); Lymphocytes # 0.7 K/mm3 (0.7-4.5); Monocytes # 0.2 K/mm3 (0.1-1.0)
[2022-04-15 07:22] LABS: Anion Gap 7.7 mEq/L (5-15); Blood Urea Nitrogen 18 mg/dl (9-20); Calcium 8.8 mg/dl (8.4-10.2); Carbon Dioxide 29 mmol/L (22.0-30.0); Chloride 101 mmol/L (98-107); Creatinine Clearance Estimated 53 mL/min (50-200); Estimated Glomerular Filt Rate 109 ml/min (>60); GFR (African American) 132 ML/MIN (>60); Glucose 92 mg/dl (74-100); Potassium 3.7 mmoL/L (3.5-5.1); Sodium 134 mmol/L (136-145)
[2022-04-15 07:32] LABS: Basophils # 0.1 K/mm3 (0-0.2); Hematocrit 35.4 % (42.0-52.0); Lymphocytes % 16.3 % (10-50); Mean Corpuscular Hemoglobin 28.3 pg (27.0-31.2); Mean Corpuscular Volume 88.2 fl (80-94); Mean Platelet Volume 11.2 fl (7.4-10.4); Monocytes % 5.8 % (1.7-9.3); Neutrophils # 3.1 K/mm3 (1.8-7.8); Neutrophils % 74.8 % (37.0-80.0); Platelet Count 173 K/mm3 (142-424); Red Blood Count 4.02 M/mm3 (4.60-6.20); Red Cell Distribution Width 16.6 % (11.5-17.5); White Blood Count 4.1 K/mm3 (4.8-10.8)
[2022-04-15 07:43] LABS: Hemoglobin 11.3 g/dL (14.1-18.0)
[2022-04-15 08:00] VITALS: BP 126/55; PULSE 82; RESP 16; TEMP 36.7; O2SAT 98
--- NOTE | 2022-04-15 09:10 | PC.NURSE ---
Notified Physical Therapist blank of PT eval placed on pt.
--- NOTE | 2022-04-15 09:43 | HMH.HP ---
*Admission Date: 04/14/22 *Chief complaint: UTI, weakness, confusion *History of present illness: Mr. Cat is a 77-year-old male with a history of gradually worsening chronic debility, inability to swallow, cachexia, seizure disorder, and tube feed dependence who presented to the ED for evaluation from home with concern for possible seizure. Per ER documentation, family reports that they witnessed seizure-like activity, unknown how long this lasted. He has had questionable seizure history in the past. No seizures noted by EMS. They state that given patient's worsening condition, they called EMS to bring him to the emergency department for evaluation because they are no longer able to care for him at home. At this time, they would like to seek placement. Patient has baseline waxing and waning mental status, however he is altered on my assessment and is only oriented to person. He complains of diffuse aches and soreness all over, but no other specific concerns at this time. No notable infectious symptoms reported by family. Work up in ER with stable labs. UA concerning for UTI. Initiated on IV Abx. Admitted to Medicine service for further management. on evaluation this morning, patient has no complaints. Denies any chest pain or shortness of breath. Gutierrez catheter in place draining clear urine. Feeding tube in place, clean dry intact. Hemodynamically stable. [facility] History I have reviewed the patient's past medical history: Yes Medical History: Reports:: Atrial Fibrillation, Cancer, Chronic Obstructive Pulmonary Disease (COPD), Hyperlipidemia, Hypertension, Myocardial Infarction Denies:: Diabetes Mellitus Type 1, Diabetes Mellitus Type 2, Internal Pacemaker, MRSA, Seizures *Have you ever received a pneumonia vaccine?: Yes *Have you received a flu vaccine this season?: Yes Other Medical History: Reports: Anemia, Arthritis, Cataracts, Glaucoma, Hypothyroidism Other Surgeries: Yes: Colonoscopy, Other. No: Pacemaker Amputation: No Fractures: No - *Social History Smoking Status: Former smoker Tobacco Type: cigarettes Alcohol Intake: never Substance Use Type: denies use *Occupational Status:: retired Housing: house Household Members: family *Travel in the last 8 weeks: None Family Hx:: Unable to obtain Review of Systems - Review of Systems Review of systems:: pertinent systems reviewed and negative unless documented below (14 point review of systems performed, pertinent positives and negatives as per HPI) Meds Home Medications Medication Instructions Recorded Confirmed Type Levothyroxine Sodium 88 mcg PO DAILY 04/16/19 04/14/22 History [Levothyroxine 88mcg (0.088mg) Tab] Buspirone HCl [Buspar 10mg 10 mg PO BIDP PRN 06/09/21 04/14/22 History tablet] Pravastatin Sodium [Pravachol 20mg 20 mg PO HS 06/09/21 04/14/22 History Tablet] Cyanocobalamin (Vitamin B-12) 1,000 mcg IM MONTHLY 02/28/22 04/14/22 History [Cyanocobalamin 1,000mcg/mL Vial] LORazepam [Lorazepam 0.5mg Tablet] 0.25 mg PO HS 04/14/22 04/14/22 History Lactobacillus Rhamnosus R0011 1 cap PO DAILY 04/14/22 04/14/22 History [Probiotic Digestive Care] Nitrofurantoin Monohyd/M-Cryst 100 mg FEED TUBE BID 04/14/22 04/14/22 History [Macrobid 100 mg Capsule] Polymyxin B Sulf/Trimethoprim 10 ml OP DIRECTED 04/14/22 04/14/22 History [Polytrim Eye Drops] PARoxetine HCL [Paxil 20mg Tablet] 20 mg PO DAILY 04/15/22 04/15/22 History levETIRAcetam [Keppra] 500 mg PO BID 04/15/22 04/15/22 History Allergies Allergy/AdvReac Type Severity Reaction Status Date / Time No Known Allergies Allergy Verified 11/14/21 09:31 Exam Vital signs and Labs for Last 24 Hours: Temp Pulse Resp BP Pulse Ox 98.1 F 82 16 126/55 L 98 04/15/22 08:00 04/15/22 08:00 04/15/22 08:00 04/15/22 08:00 04/15/22 08:00 Laboratory Results - last 24 hr 04/14/22 18:52: WBC 3.5 L, RBC 4.67, Hgb 13.2 L, Hct 42.1, MCV 90.2, MCH 28.2, MCHC 31.3 L, RDW 15.5, Plt
--- NOTE | 2022-04-15 11:32 | HMH.PHAVTE ---
[facility] Pharmacy VTE Monitoring - Patient Demographics Admission date: 04/15/22 Report Date: 04/15/22 Time: 11:32 Allergies/Adverse Reactions: Patient Allergies No Known Allergies Allergy (Verified 11/14/21 09:31) Height: 1.88 m Weight: 60.866 kg Patient Problems: Current Active Problems UTI (urinary tract infection) (Acute) Seizure (Acute) Debility (Acute) - VTE Risk Labs: VTE Related Lab Results Hgb 11.3 g/dL (14.1-18.0) L D 04/15/22 06:30 Hct 35.4 % (42.0-52.0) L 04/15/22 06:30 Plt Count 173 K/mm3 (142-424) 04/15/22 06:30 BUN 18 mg/dl (9-20) 04/15/22 06:30 Creatinine 0.70 mg/dl (0.66-1.25) 04/15/22 06:30 Estimated Creat Clear 53 mL/min (50-200) 04/15/22 06:30 Was VTE Risk Assessment Performed: Yes VTE Score: 5 VTE Risk Level: Low Risk - Prophylaxis Types of VTE Prophylaxis: Pharmacological Pharmacologic Type: Enoxaparin
--- NOTE | 2022-04-15 13:39 | PC.NURSE ---
Per family, pt gets 720 mls of jevity 1.2 and 480 mls of water q12hrs which equals out to 60mls/hr of jevity 1.2 and 240 ml flushes q4hrs. Per Dr Escobedo it is ok to restart tube feeds based on what pt gets at home until dietary consult can be done on Sun.
[2022-04-15 15:30] VITALS: BP 132/87; PULSE 81; RESP 16; TEMP 36.7; O2SAT 99
--- NOTE | 2022-04-15 16:00 | PC.NURSE ---
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 Patient VSS, had BM x 1, urine light to medium nicky in color with cloudiness. PEG site clean, no signs of redness or tenderness noted; 0mL residual; gave medication via PEG with 60mL free water; patient tolerate well. Gave LR 500mL bolus at 250mL/hr per provider order; Tube feed started per provider order as patient was receiving at home then adjusted settings per nutrition consult. Patient voiced no concerns at this time, call light within reach, bed at lowest level for safety; will continue to monitor.
--- NOTE | 2022-04-15 18:09 | PC.NURSE ---
Recvd call from Ayanna (honing machine operator semiautomatic) for nutrition consult; v.o. to continue Jevity 1.2 full strength 60ml/hr with Free Water 130mL/4hrs
--- NOTE | 2022-04-15 18:10 | DIET.NUTRFU ---
RD familiar with patient from previous admit in February 2022. Reviewed current TF with nursing, daughter provides TF at home. Currently tolerating goal rate of 60ml/hr x24 hours and additional flush at 130ml [id number]/day. No residuals noted at this time. Providing 100% nutrition. Requested labs to review hydration status tomorrow. Patient did receive a bolus flush this AM with sodium level at 134L. Will follow-up with labs tomorrow.
[2022-04-15 19:40] VITALS: BP 136/63; PULSE 78; RESP 18; TEMP 36.7; O2SAT 98
[2022-04-15 20:00] VITALS: O2SAT 98
[2022-04-15 20:30] LABS: POC Glucose,Bedside 91 (70-110)
[2022-04-15 20:30] LABS: POC Glucose,Bedside 97 (70-110)
[2022-04-16 03:54] VITALS: BP 133/63; PULSE 75; RESP 18; TEMP 36.7; O2SAT 91
--- NOTE | 2022-04-16 05:29 | PC.NURSE ---
Pt is alert to person, name, birthday, and year. Pt has showed more signs of confusion tonight. Lung sounds are clear, O2 sat >95%. G tube in place and feeding running per order. Gastric residual at 0500 was 150, per policy, reinfused aspirate, flushed tube, restarted feeding. Gutierrez noted to have sediment and some blood tinge, flushed catheter to maintain patency.
[2022-04-16 06:52] LABS: Basophils % 0.8 % (0.1-2.0); Eosinophils # 0.1 K/mm3 (0.0-0.4); Eosinophils % 1.5 % (0.1-12.0); Hematocrit 40.9 % (42.0-52.0); Lymphocytes # 0.6 K/mm3 (0.7-4.5); Lymphocytes % 13.6 % (10-50); Mean Corpuscular HGB Conc 32.5 g/dL (31.8-35.4); Mean Corpuscular Volume 89.2 fl (80-94); Mean Platelet Volume 8.4 fl (7.4-10.4); Monocytes # 0.3 K/mm3 (0.1-1.0); Neutrophils # 3.5 K/mm3 (1.8-7.8); Neutrophils % 78.2 % (37.0-80.0); Platelet Count 173 K/mm3 (142-424); Red Blood Count 4.59 M/mm3 (4.60-6.20); Red Cell Distribution Width 15.6 % (11.5-17.5); White Blood Count 4.5 K/mm3 (4.8-10.8)
[2022-04-16 06:53] LABS: Hemoglobin 13.3 g/dL (14.1-18.0)
[2022-04-16 07:03] LABS: Alanine Aminotransferase 32 U/L (12-78); Albumin Level 3.6 g/dl (3.5-5.0); Albumin/Globulin Ratio 1.2 (1.1-1.8); Alkaline Phosphatase 169 U/L (38-126); Anion Gap 8.8 mEq/L (5-15); Aspartate Amino Transferase 42 U/L (17-59); Bilirubin,Total 0.3 mg/dl (0.2-1.3); Blood Urea Nitrogen 19 mg/dl (9-20); Calcium 9.2 mg/dl (8.4-10.2); Carbon Dioxide 32 mmol/L (22.0-30.0); Chloride 101 mmol/L (98-107); Creatinine Clearance Estimated 53 mL/min (50-200); Estimated Glomerular Filt Rate 94 ml/min (>60); GFR (African American) 113 ML/MIN (>60); Glucose 105 mg/dl (74-100); Magnesium 1.7 mg/dl (1.6-2.3); Potassium 3.8 mmoL/L (3.5-5.1); Sodium 138 mmol/L (136-145); Total Protein,Serum 6.6 g/dl (6.3-8.2)
[2022-04-16 07:54] VITALS: BP 154/64; PULSE 67; RESP 17; TEMP 36.8; O2SAT 98
--- NOTE | 2022-04-16 09:12 | DIET.NUTRFU ---
Rd reviewed labs, hydration WNL, sodium 138. Patient continues tolerate TF at 60ml, 150ml residuals noted on 04/15. Will continue to follow labs and TF tolerance. Reviewed I/O he has a cochran 700ml noted so far today, no BM since admit. BM mgt in place.
--- NOTE | 2022-04-16 09:59 | HMH.ACPN2 ---
Internal Medicine - PN: Subj *Date: 04/16/22 *Time: 09:59 Interval history: Did well overnight. Remains afebrile. Hemodynamically stable. No complaint of chest pain or shortness of breath. Tolerating tube feeds. Exam Vital signs and Labs for Last 24 Hours: Temp Pulse Resp BP Pulse Ox 98.3 F 67 17 154/64 H 98 04/16/22 07:54 04/16/22 07:54 04/16/22 07:54 04/16/22 07:54 04/16/22 07:54 Laboratory Results - last 24 hr 04/14/22 19:22: Urine Color Yellow, Urine Appearance Clear, Urine pH 6.0, Ur Specific [place] 1.015, Urine Protein Negative, Urine Glucose (UA) Negative, Urine Ketones Negative, Urine Blood Negative, Urine Nitrate Positive, Urine Bilirubin Negative, Urine Urobilinogen 0.2, Ur Leukocyte Esterase 2+ A, Urine RBC Occasional, Urine WBC 5-10, Ur Squamous Epith Cells 3-5, Urine Bacteria 1+ 04/15/22 06:13: POC Glucose 91 04/15/22 17:08: POC Glucose 97 04/16/22 06:16: WBC 4.5 L, RBC 4.59 L, Hgb 13.3 L D, Hct 40.9 L, MCV 89.2, MCH 29.0, MCHC 32.5, RDW 15.6, Plt Count 173, MPV 8.4, Neut % (Auto) 78.2, Lymph % (Auto) 13.6, [place] % (Auto) 6.0, Eos % (Auto) 1.5, Baso % (Auto) 0.8, Neut # (Auto) 3.5, Lymph # (Auto) 0.6 L, [place] # (Auto) 0.3, Eos # (Auto) 0.1, Baso # (Auto) 0.0 04/16/22 06:16: Sodium 138, Potassium 3.8, Chloride 101, Carbon Dioxide 32 H, Anion Gap 8.8, BUN 19, Creatinine 0.80, Estimated Creat Clear 53, Estimated GFR 94, Est GFR ( Amer) 113, Glucose 105 H, Calcium 9.2, Magnesium 1.7, Total Bilirubin 0.3, AST 42, ALT 32, Alkaline Phosphatase 169 H, Total Protein 6.6, Albumin 3.6, Globulin 3.0, Albumin/Globulin Ratio 1.2 I & O for Last 24 hours: Intake & Output 04/13/22 04/14/22 04/15/22 04/16/22 23:59 23:59 23:59 23:59 Intake Total 1100 / 1100 665 / 665 978 / 978 Output Total 200 / 200 100 / 100 700 / 700 Balance 900 / 900 565 / 565 278 / 278 Weight 60.866 kg Microbiology Reports for the Last 24 Hours: Microbiology 04/14/22 19:22 Urine,Clean Catch Urine Culture - Preliminary Gram Negative Rods Narrative: - Constitutional no acute distress, cachectic, chronically ill appearing - *Routine HEENT Exam Head: Present: normocephalic. loss of periorbital fat, bitemporal wasting Eye: Present: EOMI, PERRL ENT: Present: mucous membranes moist - *Routine Neck Exam Present: supple, trachea midline. Absent: lymphadenopathy - Routine Chest/Breast/Axilla Exam Prominent ribs, - *Routine Respiratory Exam Present: CTA bilaterally - *Routine Cardiovascular Exam Present: RRR - *Routine Abdominal Exam Present: soft, normoactive bowel sounds. Absent: tenderness - *Routine Extremities Exam Absent: cyanosis, clubbing, edema - *Routine Skin Exam Present: warm. Absent: rash - *Routine Neurological Exam Present: alert, Oriented to person Assessment and Plan (1) UTI (urinary tract infection) Status: Acute Category: Medical Code(s): N39.0 - Urinary tract infection, site not specified (2) Debility Status: Chronic Category: Medical Code(s): R53.81 - Other malaise (3) Seizure Status: Chronic Category: Medical Code(s): R56.9 - Unspecified convulsions (4) Altered mental status Status: Acute Qualifiers: Altered mental status type: unspecified Qualified Code(s): R41.82 - Altered mental status, unspecified Category: Medical Code(s): R41.82 - Altered mental status, unspecified (5) Dysphagia Status: Chronic Qualifiers: Dysphagia type: esophageal phase Qualified Code(s): R13.19 - Other dysphagia Category: Medical Code(s): R13.10 - Dysphagia, unspecified (6) Cachexia Status: Chronic Category: Medical Code(s): R64 - Cachexia (7) Hypothyroid Status: Chronic Qualifiers: Hypothyroidism type: acquired Qualified Code(s): E03.9 - Hypothyroidism, unspecified Category: Medical Code(s): E03.9 - Hypothyroidism, unspecified (8) Severe protein-calorie malnutrition St
--- NOTE | 2022-04-16 12:59 | PC.NURSE ---
I was notified by SALVATORE Ash that pt's RN (Eddie Turner) was requesting assistance as pt had had a change in mental status. Upon entering the room the patient was very restless/agitated, attempting to climb out of bed. It was taking 3 people to keep him in his bed as to not harm himself. He was unable to follow commands or speak. Pupils were sluggish. He was rigid and unable to sit still. Dr Escobedo was notified. 5mg diazepam IV once was ordered. Pt is now more calm and resting in bed quietly. He is able to follow commands and is speaking coherently. He states I'm ok now .
[2022-04-16 16:00] VITALS: BP 122/59; PULSE 82; RESP 16; TEMP 36.8; O2SAT 99
--- NOTE | 2022-04-16 18:19 | PC.NURSE ---
Pt appeared to have seizure like activity earlier this shift. Dr. Escobedo notified and ordered 5 mg IV valium. Episode lasted at least 5 mins, where pupils were sluggish, pt was restless, rigid, and unable to follow commands. Dr. Escobedo also ordered to increase keppra per nov. Has been turned and repositioned. Pt appeared to be post ictal, a couple hrs after episode and after valium given. VSS. HOB elevated and tube feeds infusing w/o any problems. Pt has been alert to name and bday. VSS. Bed alrm on and seizure pads in place.
[2022-04-17 02:07] LABS: POC Glucose,Bedside 112 (70-110)
[2022-04-17 02:07] LABS: POC Glucose,Bedside 112 (70-110)
[2022-04-17 02:07] LABS: POC Glucose,Bedside 112 (70-110)
[2022-04-17 02:11] LABS: POC Glucose,Bedside 112 (70-110)
[2022-04-17 04:00] VITALS: BP 122/62; PULSE 79; RESP 18; TEMP 36.7; O2SAT 97
[2022-04-17 04:27] VITALS: BMI 18.8
--- NOTE | 2022-04-17 05:20 | PC.NURSE ---
Pt alert and oriented x 2. Pt has had an uneventful night, has rested fairly well. Pt receiving tube feeding per PEG at prescribed rate w/o issue. Checking GRV q4hrs. BS active x 4, abd soft. Pt is urinating yellow urine with sediment per cochran cath. VSS, HOB remains elevated. Seizure pads in place, bed alarm on. Call light in reach.
[2022-04-17 06:08] LABS: Basophils % 0.9 % (0.1-2.0); Eosinophils # 0.1 K/mm3 (0.0-0.4); Eosinophils % 2.8 % (0.1-12.0); Hematocrit 36.1 % (42.0-52.0); Hemoglobin 11.7 g/dL (14.1-18.0); Lymphocytes # 0.6 K/mm3 (0.7-4.5); Lymphocytes % 17.3 % (10-50); Mean Corpuscular HGB Conc 32.4 g/dL (31.8-35.4); Mean Corpuscular Hemoglobin 29.4 pg (27.0-31.2); Mean Corpuscular Volume 90.7 fl (80-94); Mean Platelet Volume 8.3 fl (7.4-10.4); Monocytes # 0.2 K/mm3 (0.1-1.0); Monocytes % 6.3 % (1.7-9.3); Neutrophils # 2.6 K/mm3 (1.8-7.8); Neutrophils % 72.7 % (37.0-80.0); Platelet Count 147 K/mm3 (142-424); Red Blood Count 3.98 M/mm3 (4.60-6.20); Red Cell Distribution Width 15.9 % (11.5-17.5); White Blood Count 3.6 K/mm3 (4.8-10.8)
[2022-04-17 06:21] LABS: Chloride 102 mmol/L (98-107); Potassium 3.7 mmoL/L (3.5-5.1); Sodium 137 mmol/L (136-145)
[2022-04-17 06:24] LABS: Anion Gap 4.7 mEq/L (5-15); Blood Urea Nitrogen 16 mg/dl (9-20); Calcium 8.8 mg/dl (8.4-10.2); Carbon Dioxide 34 mmol/L (22.0-30.0); Creatinine Clearance Estimated 58 mL/min (50-200); Estimated Glomerular Filt Rate 109 ml/min (>60); GFR (African American) 132 ML/MIN (>60); Glucose 126 mg/dl (74-100)
[2022-04-17 07:35] VITALS: BMI 18.6
[2022-04-17 08:00] VITALS: BP 121/54; PULSE 65; RESP 14; TEMP 36.9; O2SAT 97
--- NOTE | 2022-04-17 08:22 | HMH.ACPN2 ---
Internal Medicine - PN: Subj *Date: 04/17/22 *Time: 08:22 Interval history: Overnight patient did well, no seizure activity noted by nursing staff. He was pleasant and his normal degree of communication status this morning. Exam Vital signs and Labs for Last 24 Hours: Temp Pulse Resp BP Pulse Ox 98.4 F 65 14 121/54 L 97 04/17/22 08:00 04/17/22 08:00 04/17/22 08:00 04/17/22 08:00 04/17/22 08:00 Laboratory Results - last 24 hr 04/14/22 19:22: Urine Color Yellow, Urine Appearance Clear, Urine pH 6.0, Ur Specific [place] 1.015, Urine Protein Negative, Urine Glucose (UA) Negative, Urine Ketones Negative, Urine Blood Negative, Urine Nitrate Positive, Urine Bilirubin Negative, Urine Urobilinogen 0.2, Ur Leukocyte Esterase 2+ A, Urine RBC Occasional, Urine WBC 5-10, Ur Squamous Epith Cells 3-5, Urine Bacteria 1+ 04/15/22 21:56: POC Glucose 112 H 04/16/22 06:00: POC Glucose 112 H 04/16/22 16:37: POC Glucose 112 H 04/16/22 21:48: POC Glucose 112 H 04/17/22 05:50: WBC 3.6 L, RBC 3.98 L, Hgb 11.7 L D, Hct 36.1 L, MCV 90.7, MCH 29.4, MCHC 32.4, RDW 15.9, Plt Count 147, MPV 8.3, Neut % (Auto) 72.7, Lymph % (Auto) 17.3, [place] % (Auto) 6.3, Eos % (Auto) 2.8, Baso % (Auto) 0.9, Neut # (Auto) 2.6, Lymph # (Auto) 0.6 L, [place] # (Auto) 0.2, Eos # (Auto) 0.1, Baso # (Auto) 0.0 04/17/22 05:50: Sodium 137, Potassium 3.7, Chloride 102, Carbon Dioxide 34 H, Anion Gap 4.7 L, BUN 16, Creatinine 0.70, Estimated Creat Clear 58, Estimated GFR 109, Est GFR ( Amer) 132, Glucose 126 H, Calcium 8.8 I & O for Last 24 hours: Intake & Output 04/14/22 04/15/22 04/16/22 04/17/22 11:59 11:59 11:59 11:59 Intake Total 1100 / 1100 1643 / 1643 2634 / 2634 Output Total 200 / 200 800 / 800 1300 / 1300 Balance 900 / 900 843 / 843 1334 / 1334 Weight 134 lb 3 oz 145 lb 8.081 oz Microbiology Reports for the Last 24 Hours: Microbiology 04/14/22 19:22 Urine,Clean Catch Urine Culture - Final Klebsiella pneumoniae Narrative: Patient is awake, alert. G-tube site looks good. Lung carrillo have poor air movement but otherwise clear, heart rate regular. Abdomen soft. Able to move all extremities but is extremely limited on gait. Assessment and Plan (1) UTI (urinary tract infection) Status: Acute Category: Medical Code(s): N39.0 - Urinary tract infection, site not specified (2) Debility Status: Chronic Category: Medical Code(s): R53.81 - Other malaise (3) Seizure Status: Chronic Category: Medical Code(s): R56.9 - Unspecified convulsions (4) Altered mental status Status: Acute Qualifiers: Altered mental status type: unspecified Qualified Code(s): R41.82 - Altered mental status, unspecified Category: Medical Code(s): R41.82 - Altered mental status, unspecified (5) Dysphagia Status: Chronic Qualifiers: Dysphagia type: esophageal phase Qualified Code(s): R13.19 - Other dysphagia Category: Medical Code(s): R13.10 - Dysphagia, unspecified (6) Cachexia Status: Chronic Category: Medical Code(s): R64 - Cachexia (7) Hypothyroid Status: Chronic Qualifiers: Hypothyroidism type: acquired Qualified Code(s): E03.9 - Hypothyroidism, unspecified Category: Medical Code(s): E03.9 - Hypothyroidism, unspecified (8) Severe protein-calorie malnutrition Status: Chronic Category: Medical Code(s): E43 - Unspecified severe protein-calorie malnutrition - Assessment and plan all Dx Assessment and Plan for all problems:: Keppra dose increased yesterday. Valium is on order as needed seizures. Treat UTI-await cultures. Given his increasing debility and need for 24/7 care immediately in the process of LTAC placement evaluation.
--- NOTE | 2022-04-17 09:33 | SW/DCPLANNER ---
Addendum entered by Lyn Noel 04/18/22 11:17: This patient has been accepted to [facility] per Jimena. Jimena has requested an additional COVID swab prior to discharge. I will also arrange for [facility] van transportation. Per Dr Escobedo patient will discharge later today. Addendum entered by Lyn Noel 04/17/22 11:25: Jimena simon/ [facility] will onsite visit this patient this afternoon. Original Note: I spoke with this patient's son regarding plans once medically stable for discharge. Son expressed an interest in SNF level of care once medically stable for discharge. Son is interested in [facility] at this time. Patient information will be faxed to Jimena simon/ [facility]. Son stated that if [facility] could not accept patient he would then be interested in [place]. I will continue to follow up with MD leonarda and family.
--- NOTE | 2022-04-17 09:41 | DIET.NUTRFU ---
according to nursing, patient is TF with no residuals this morning. Continues at goal rate of 60ml/hr ATC providing goal rate and 100% nutrition. Reviewed labs, hydration WNL. No BM noted but bowels sounds noted today x4. Family is looking for placement this admit, social work program coordinator aware and looking at [facility]. Will help with discharge as needed.
--- NOTE | 2022-04-17 09:52 | HMH.PTEV ---
Physical Therapy Evaluation Rehab PT IP Evaluation Start: 04/17/22 08:09 Freq: ONCE Status: Active Protocol: Document 04/17/22 09:46 CARLOTTA (Rec: 04/17/22 09:51 CARLOTTA [id number]) Subjective/History History History Mr. Cat is a 77-year-old male with a history of gradually worsening chronic debility, inability to swallow , cachexia, seizure disorder, and tube feed dependence who presented to the ED for evaluation from home with concern for possible seizure. Per ER documentation, family reports that they witnessed seizure-like activity, unknown how long this lasted. He has had questionable seizure history in the past. No seizures noted by EMS. They state that given patient's worsening condition, they called EMS to bring him to the emergency department for evaluation because they are no longer able to care for him at home. At this time, they would like to seek placement. Patient has baseline waxing and waning mental status, however he is altered on my assessment and is only oriented to person. He complains of diffuse aches and soreness all over, but no other specific concerns at this time. No notable infectious symptoms reported by family. Work up in ER with stable labs. UA concerning for UTI. Initiated on IV Abx. Admitted to Medicine service for further management. Subjective Subjective Pt HABEMATOLEL - pt alert x 3 - pt soft spoken but did state he was dizzy when he sat up and stood Rehab PT IP Eval Objective Appearance Patient Behavior Appropriate,Cooperative Patient Orientation Place,Name,Birthday,Year Difficulty following instructions mild Sp
--- NOTE | 2022-04-17 10:37 | HMH.OTEV ---
OT Inpatient Evaluation Rehab OT IP Evaluation Start: 04/17/22 08:11 Freq: ONCE Status: Complete Protocol: Document 04/17/22 10:08 JUVE (Rec: 04/17/22 10:37 [facility] [id number]) Rehab OT IP Assessment Subjective History Pt oriented x 3 on arrival. Pt agreeable to engage in therapy evaluation. Pt was admitted via ED on 04/14/22 due to UTI, weakness, and confusion. Pt unable to provide information about prior level of function due to CHITIMACHA. According to chart review it appears patient was living with family and requiring a significant amount of care. The following information was copied from history and physical report: Mr. Cat is a 77-year-old male with a history of gradually worsening chronic debility, inability to swallow , cachexia, seizure disorder, and tube feed dependence who presented to the ED for evaluation from home with concern for possible seizure. Per ER documentation, family reports that they witnessed seizure-like activity, unknown how long this lasted. He has had questionable seizure history in the past. No seizures noted by EMS. They state that given patient's worsening condition, they called EMS to bring him to the emergency department for evaluation because they are no longer able to care for him at home. At this time, they would like to seek placement. Patient has baseline waxing and waning mental status, however he is altered on my assessment and is only oriented to person. He complains of diffuse aches and jatinder
[2022-04-17 15:46] VITALS: BP 144/71; PULSE 74; RESP 16; TEMP 36.6; O2SAT 99
--- NOTE | 2022-04-17 19:26 | PC.NURSE ---
Pt has slept most of nshift since seizure activity this am. Will wake up and respond and follow commands when hearing aid is in use. Pt a/o x 4 this am, but does have episodes of confusion at intervals. NAD. VSS. CB in reach. Tube feeds tolerated well w/o any problems. No changes since prior assessment.
[2022-04-17 20:00] VITALS: BP 123/59; PULSE 100; RESP 18; TEMP 36.6; O2SAT 98
[2022-04-18 01:28] LABS: POC Glucose,Bedside 106 (70-110)
[2022-04-18 01:28] LABS: POC Glucose,Bedside 94 (70-110)
[2022-04-18 01:28] LABS: POC Glucose,Bedside 108 (70-110)
[2022-04-18 01:28] LABS: POC Glucose,Bedside 125 (70-110)
[2022-04-18 04:00] VITALS: BP 132/59; PULSE 71; RESP 18; TEMP 36.5; O2SAT 99
--- NOTE | 2022-04-18 04:59 | PC.NURSE ---
Pt has been alert to person t/o shift. Has said only a couple words t/o shift. Will answer yes/no questions by nodding head. Pt tolerating tube feed well at 60ml/hr with residuals of 5-10ml q4. Pt lung sounds diminished. Bed alarm and seizure pads in place for pt safety.
[2022-04-18 05:00] VITALS: BMI 17.2
[2022-04-18 06:27] LABS: MANUAL DIFFERENTIAL MANUAL DIFFERENTIAL (MANUAL DIFF)
[2022-04-18 06:34] LABS: Basophils % 0.6 % (0.1-2.0); Eosinophils # 0.1 K/mm3 (0.0-0.4); Eosinophils % 3.3 % (0.1-12.0); Hematocrit 36.6 % (42.0-52.0); Hemoglobin 11.7 g/dL (14.1-18.0); Lymphocytes # 0.7 K/mm3 (0.7-4.5); Lymphocytes % 21.5 % (10-50); Mean Corpuscular HGB Conc 31.8 g/dL (31.8-35.4); Mean Corpuscular Hemoglobin 29.1 pg (27.0-31.2); Mean Corpuscular Volume 91.5 fl (80-94); Mean Platelet Volume 8.1 fl (7.4-10.4); Monocytes # 0.3 K/mm3 (0.1-1.0); Monocytes % 7.8 % (1.7-9.3); Neutrophils # 2.2 K/mm3 (1.8-7.8); Neutrophils % 66.9 % (37.0-80.0); Platelet Count 147 K/mm3 (142-424); Red Cell Distribution Width 15.8 % (11.5-17.5); White Blood Count 3.3 K/mm3 (4.8-10.8)
[2022-04-18 06:40] LABS: Chloride 101 mmol/L (98-107); Sodium 137 mmol/L (136-145)
[2022-04-18 06:43] LABS: Blood Urea Nitrogen 18 mg/dl (9-20); Calcium 8.8 mg/dl (8.4-10.2); Carbon Dioxide 34 mmol/L (22.0-30.0); Creatinine Clearance Estimated 53 mL/min (50-200); Estimated Glomerular Filt Rate 109 ml/min (>60); GFR (African American) 132 ML/MIN (>60); Glucose 116 mg/dl (74-100)
--- NOTE | 2022-04-18 07:40 | HMH.ACPN2 ---
Internal Medicine - PN: Subj *Date: 04/18/22 *Time: 08:30 Interval history: Patient had a seizure yesterday but has not had any further episodes over 18 hours. Remains afebrile and hemodynamically stable. Denies any shortness of breath. Is producing some thick sputum per family, this is normal for him on a daily basis. Still has catheter in place. Would benefit from removal. Son at bedside on rounds. No bowel movement since admission. Exam Vital signs and Labs for Last 24 Hours: Temp Pulse Resp BP Pulse Ox 97.7 F 71 18 132/59 L 99 04/18/22 04:00 04/18/22 04:00 04/18/22 04:00 04/18/22 04:00 04/18/22 04:00 Laboratory Results - last 24 hr 04/17/22 06:01: POC Glucose 125 H 04/17/22 11:17: POC Glucose 108 04/17/22 16:41: POC Glucose 106 04/18/22 00:17: POC Glucose 94 04/18/22 05:57: WBC 3.3 L, RBC 4.00 L, Hgb 11.7 L, Hct 36.6 L, MCV 91.5, MCH 29.1, MCHC 31.8, RDW 15.8, Plt Count 147, MPV 8.1, Neut % (Auto) 66.9, Lymph % (Auto) 21.5, [place] % (Auto) 7.8, Eos % (Auto) 3.3, Baso % (Auto) 0.6, Neut # (Auto) 2.2, Lymph # (Auto) 0.7, [place] # (Auto) 0.3, Eos # (Auto) 0.1, Baso # (Auto) 0.0 04/18/22 05:57: Sodium 137, Potassium 4.0, Chloride 101, Carbon Dioxide 34 H, Anion Gap 6.0, BUN 18, Creatinine 0.70, Estimated Creat Clear 53, Estimated GFR 109, Est GFR ( Amer) 132, Glucose 116 H, Calcium 8.8 I & O for Last 24 hours: Intake & Output 04/15/22 04/16/22 04/17/22 04/18/22 23:59 23:59 23:59 23:59 Intake Total 665 / 665 2188 / 2188 2634 / 2634 852 / 852 Output Total 100 / 100 1300 / 1300 1470 / 1470 Balance 565 / 565 888 / 888 1164 / 1164 852 / 852 Weight 66 kg 61.037 kg Microbiology Reports for the Last 24 Hours: Microbiology 04/14/22 19:22 Urine,Clean Catch Urine Culture - Final Klebsiella pneumoniae Narrative: - Constitutional no acute distress, cachectic, chronically ill appearing - *Routine HEENT Exam Head: Present: normocephalic Eye: Present: EOMI, PERRL ENT: Present: mucous membranes moist Comments: Loss of periorbital fat, bitemporal wasting - *Routine Neck Exam Present: supple, trachea midline. Absent: lymphadenopathy - Routine Chest/Breast/Axilla Exam Prominent ribs, - *Routine Respiratory Exam Present: CTA bilaterally - *Routine Cardiovascular Exam Present: RRR - *Routine Abdominal Exam Present: soft, slow but active bowel sounds. Absent: tenderness - *Routine Extremities Exam Absent: cyanosis, clubbing, edema - *Routine Skin Exam Present: warm. Absent: rash - *Routine Neurological Exam Present: alert; Oriented to person Assessment and Plan (1) UTI (urinary tract infection) Status: Acute Category: Medical Code(s): N39.0 - Urinary tract infection, site not specified (2) Debility Status: Chronic Category: Medical Code(s): R53.81 - Other malaise (3) Seizure Status: Chronic Category: Medical Code(s): R56.9 - Unspecified convulsions (4) Altered mental status Status: Acute Qualifiers: Altered mental status type: unspecified Qualified Code(s): R41.82 - Altered mental status, unspecified Category: Medical Code(s): R41.82 - Altered mental status, unspecified (5) Dysphagia Status: Chronic Qualifiers: Dysphagia type: esophageal phase Qualified Code(s): R13.19 - Other dysphagia Category: Medical Code(s): R13.10 - Dysphagia, unspecified (6) Cachexia Status: Chronic Category: Medical Code(s): R64 - Cachexia (7) Hypothyroid Status: Chronic Qualifiers: Hypothyroidism type: acquired Qualified Code(s): E03.9 - Hypothyroidism, unspecified Category: Medical Code(s): E03.9 - Hypothyroidism, unspecified (8) Severe protein-calorie malnutrition Status: Chronic Category: Medical Code(s): E43 - Unspecified severe protein-calorie malnutrition - Assessment and plan all Dx Assessment and Plan for all problems:: 77-year-old male with worsenin
[2022-04-18 07:52] LABS: Lymphocytes % 34 % (10-50); Monocytes % 3 % (2-9); Neutrophils % 63 % (42-76); Platelet Estimate Normal; RBC Morphology Normal; Total Cells Counted 100
[2022-04-18 08:00] VITALS: BP 129/55; PULSE 68; RESP 19; TEMP 36.6; O2SAT 100
--- NOTE | 2022-04-18 08:52 | HMH.ACPN ---
Internal Medicine - PN: Subj *Date: 04/18/22 *Time: 08:52 Exam Vital signs and Labs for Last 24 Hours: Temp Pulse Resp BP Pulse Ox 97.9 F 68 19 129/55 L 100 04/18/22 08:00 04/18/22 08:00 04/18/22 08:00 04/18/22 08:00 04/18/22 08:00 Laboratory Results - last 24 hr 04/17/22 06:01: POC Glucose 125 H 04/17/22 11:17: POC Glucose 108 04/17/22 16:41: POC Glucose 106 04/18/22 00:17: POC Glucose 94 04/18/22 05:57: WBC 3.3 L, RBC 4.00 L, Hgb 11.7 L, Hct 36.6 L, MCV 91.5, MCH 29.1, MCHC 31.8, RDW 15.8, Plt Count 147, MPV 8.1, Neut % (Auto) 66.9, Lymph % (Auto) 21.5, [place] % (Auto) 7.8, Eos % (Auto) 3.3, Baso % (Auto) 0.6, Neut # (Auto) 2.2, Lymph # (Auto) 0.7, [place] # (Auto) 0.3, Eos # (Auto) 0.1, Baso # (Auto) 0.0, Total Counted 100, Neutrophils % (Manual) 63, Lymphocytes % (Manual) 34, Monocytes % (Manual) 3, Platelet Estimate Normal, RBC Morphology Normal 04/18/22 05:57: Sodium 137, Potassium 4.0, Chloride 101, Carbon Dioxide 34 H, Anion Gap 6.0, BUN 18, Creatinine 0.70, Estimated Creat Clear 53, Estimated GFR 109, Est GFR ( Amer) 132, Glucose 116 H, Calcium 8.8 I & O for Last 24 hours: Intake & Output 04/15/22 04/16/22 04/17/22 04/18/22 23:59 23:59 23:59 23:59 Intake Total 665 / 665 2188 / 2188 2634 / 2634 852 / 852 Output Total 100 / 100 1300 / 1300 1470 / 1470 0 / 0 Balance 565 / 565 888 / 888 1164 / 1164 852 / 852 Weight 66 kg 61.037 kg Microbiology Reports for the Last 24 Hours: Microbiology 04/14/22 19:22 Urine,Clean Catch Urine Culture - Final Klebsiella pneumoniae Assessment and Plan (1) UTI (urinary tract infection) Status: Acute Category: Medical Code(s): N39.0 - Urinary tract infection, site not specified (2) Debility Status: Chronic Category: Medical Code(s): R53.81 - Other malaise (3) Seizure Status: Chronic Category: Medical Code(s): R56.9 - Unspecified convulsions (4) Altered mental status Status: Acute Qualifiers: Altered mental status type: unspecified Qualified Code(s): R41.82 - Altered mental status, unspecified Category: Medical Code(s): R41.82 - Altered mental status, unspecified (5) Dysphagia Status: Chronic Qualifiers: Dysphagia type: esophageal phase Qualified Code(s): R13.19 - Other dysphagia Category: Medical Code(s): R13.10 - Dysphagia, unspecified (6) Cachexia Status: Chronic Category: Medical Code(s): R64 - Cachexia (7) Hypothyroid Status: Chronic Qualifiers: Hypothyroidism type: acquired Qualified Code(s): E03.9 - Hypothyroidism, unspecified Category: Medical Code(s): E03.9 - Hypothyroidism, unspecified (8) Severe protein-calorie malnutrition Status: Chronic Category: Medical Code(s): E43 - Unspecified severe protein-calorie malnutrition The patient's infection will respond to the chosen ABx?: Yes Is the patient receiving the right drug, dose, and route?: Yes Could a more targeted ABx be ordered?: No
--- NOTE | 2022-04-18 10:26 | DIET.NUTRFU ---
Patient is tolerating TF at 60ml/hr with minimal residuals. Upon visit today with provider he had spit up in basin that was greenish, family present and reported he does that at home also. Provider reported lung sounds were good. Discharge plan: [facility] can and evaluated and possible discharge later today. Family to provide some of their TF to start off at [facility]. Still no BM noted, treat with enema today per provider note. Hydration labs are WNL. No discharge needs at this time.
--- NOTE | 2022-04-18 11:18 | [facility].DCSUM ---
General - General Admission date:: 04/14/22 Discharge date: 04/18/22 HPI HPI: Mr. Cat is a 77-year-old male with a history of gradually worsening chronic debility, inability to swallow, cachexia, seizure disorder, and tube feed dependence who presented to the ED for evaluation from home with concern for possible seizure. Per ER documentation, family reports that they witnessed seizure-like activity, unknown how long this lasted. He has had questionable seizure history in the past. No seizures noted by EMS. They state that given patient's worsening condition, they called EMS to bring him to the emergency department for evaluation because they are no longer able to care for him at home. At this time, they would like to seek placement. Patient has baseline waxing and waning mental status, however he is altered on my assessment and is only oriented to person. He complains of diffuse aches and soreness all over, but no other specific concerns at this time. No notable infectious symptoms reported by family. Work up in ER with stable labs. UA concerning for UTI. Initiated on IV Abx. Admitted to Medicine service for further management. on evaluation this morning, patient has no complaints. Denies any chest pain or shortness of breath. Gutierrez catheter in place draining clear urine. Feeding tube in place, clean dry intact. Hemodynamically stable. Hospital Course Hospital Course: 77-year-old male with worsening debility and cachexia. History of seizure disorder. Found to have UTI. Admitted for medical management. Patient's condition has progressed to the point the family can no longer care for him at home. Expressed desire for placement given need for rehab. Problems during admission addressed as follows: Malnutrition Cachexia Schatzki's ring Tube feed dependence -Resumed tube feeds per nutrition orders. Tolerating goal feeds. Had bowel movement on day of discharge. Did not require any bowel regimen. UTI -Klebsiella UTI, Sensitive to ceftriaxone. We will discontinue Gutierrez today and continue antibiotics for 7 days. Continued home medications for chronic conditions Seizures/Seizure like spells - Increased Keppra to 1000mg BID per tube. Will need to continue Diazepam PRN for seizure >5minutes. Prescription sent - referred to Neurology as outpatient and scheduling for EEG as outpatient. DNR during admission. would benefit from PT/OT, rehab. transferred to [place] further therapy and management. Medically stable for discharge. Objective Vital signs: Temp Pulse Resp BP Pulse Ox 97.9 F 68 19 129/55 L 100 04/18/22 08:00 04/18/22 08:00 04/18/22 08:00 04/18/22 08:00 04/18/22 08:00 Narrative: - Constitutional no acute distress, cachectic, chronically ill appearing - *Routine HEENT Exam Head: Present: normocephalic Eye: Present: EOMI, PERRL ENT: Present: mucous membranes moist Comments: Loss of periorbital fat, bitemporal wasting - *Routine Neck Exam Present: supple, trachea midline. Absent: lymphadenopathy - Routine Chest/Breast/Axilla Exam Prominent ribs, - *Routine Respiratory Exam Present: CTA bilaterally - *Routine Cardiovascular Exam Present: RRR - *Routine Abdominal Exam Present: soft, slow but active bowel sounds. Absent: tenderness - *Routine Extremities Exam Absent: cyanosis, clubbing, edema - *Routine Skin Exam Present: warm. Absent: rash - *Routine Neurological Exam Present: alert; Oriented to person Results Labs on day of discharge: Labs from last 24 hours 04/18/22 04/18/22 04/18/22 05:57 05:57 00:17 WBC 3.3 L RBC 4.00 L Hgb 11.7 L Hct 36.6 L MCV 91.5 MCH 29.1 MCHC 31.8 RDW 15.8 Plt Count 147 MPV 8.1 Neut % (Auto) 66.9 Lymph % (Auto) 21.5 [place] % (Auto) 7.8 Eos % (Auto) 3.3 Baso % (Auto) 0.6 Neut # (Auto) 2.2 Lymph # (Auto) 0.7 [place] # (Auto) 0.3 Eos # (Auto) 0.1
[2022-04-18 11:34] LABS: Coronavirus 19, PCR Not Detected (NotDetected); Influenza A, PCR Not Detected (NotDetected); Influenza B, PCR Not Detected (NotDetected)
== END 2022-04-18 15:39 ==
LOC: ER 20:14 → 2ND 21:51
PROVIDERS: Emergency Medicine; Admitting Provider Internal Medicine Adolescent Medicine; Emergency Provider Emergency Medicine; Visit Provider Internal Medicine Adolescent Medicine
DX: N39.0 Urinary tract infection, site not specified (principal); R64 Cachexia; E43 Unspecified severe protein-calorie malnutrition; Z68.1 Body mass index [BMI] 19.9 or less, adult; G40.909 Epilepsy, unspecified, not intractable, without status epilepticus; I48.91 Unspecified atrial fibrillation; J44.9 Chronic obstructive pulmonary disease, unspecified; I10 Essential (primary) hypertension; E78.5 Hyperlipidemia, unspecified; E03.9 Hypothyroidism, unspecified; Z20.822 Contact with and (suspected) exposure to COVID-19; Z79.899 Other long term (current) drug therapy
CPT/HCPCS: G0378; 36415; 51702; 70450; 80048; 80053; 81001; 82962; 83735; 84484; 85007; 85014; 85018; 85025; 85048; 85049; 87086; 87088; 87186; 93005; 97110; 97161; 97166; 97530; 99285; C9803; J0696; U0003; U0005

== ENCOUNTER → 2022-04-25 10:00 | Outpatient (CLI) | payer MEDICARE, MEDICAID, SELFPAY | PROVIDERS: PCP Internal Medicine Adolescent Medicine; Visit Provider Internal Medicine Adolescent Medicine | DX: R56.9 Unspecified convulsions (principal) | CPT/HCPCS: 95816 ==

== ENCOUNTER → 2022-05-09 08:19 | Outpatient (CLI) | payer MEDICARE, MEDICAID, SELFPAY ==
--- NOTE | 2022-05-09 08:19 | MR_ITS ---
FINAL REPORT CLINICAL HISTORY: New onset of seizures COMPARISON: 10/26/2021 FINDINGS: Multi planar MR imaging was obtained through the brain without contrast. The midline structures appear intact. There is no evidence of Chiari malformation. There is mild to moderate age-appropriate atrophy. There is moderate increased signal in the periventricular and subcortical white matter, probably due to chronic ischemia. Incidental note is made of aneurysmal dilatation of the distal internal carotid arteries, left greater than right. Findings are similar to previous. On diffusion-weighted images, there is no evidence of restricted diffusion. The visualized paranasal sinuses demonstrate normal signal voids. The seventh and eighth nerve root complexes are intact. IMPRESSION: Age-appropriate atrophy and chronic ischemia. 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 Reviewed, Interpreted and Dictated by Perry Abernathy MD Transcribed by Maryjane Molina Authenticated and . [facility]
== END ==
PROVIDERS: PCP Internal Medicine Adolescent Medicine; Visit Provider Specialist
DX: G40.409 Other generalized epilepsy and epileptic syndromes, not intractable, without status epilepticus (principal)
CPT/HCPCS: 70551